=== PATIENT | male | born 1945 | race Caucasian/White ===

== ENCOUNTER 2019-08-26 23:57 | Inpatient (IN) | payer MEDICARE, MEDICAID, SELFPAY ==
--- NOTE | ~2019-08-26 | XR_ITS ---
EXAMINATION: XR chest 1V portable EXAM DATE: 08/27/2019 00:36 INDICATION: Cough. TECHNIQUE: Frontal and lateral projections of the chest obtained and reviewed. Comparison is made to prior examination from 06/03/2017. FINDINGS: Small amount of right basilar atelectasis. There is no pneumothorax suspected. There are no pleural effusions. Cardiomediastinal silhouette is normal. There is severe bilateral glenohumeral joey int primary osteoarthritis. IMPRESSION: Small amount right basilar atelectasis. Reviewed, dictated and finalized at location A.
--- NOTE | ~2019-08-26 | XR_ITS ---
EXAMINATION: XR abdomen/kub 1V DATE: 08/27/2019 13:30 INDICATION: Colitis and rectal bleeding TECHNIQUE: A supine view of the abdomen on 2 radiographs was obtained. COMPARISON: CT dated 08/27/2019 FINDINGS: There is some gas scattered throughout nondilated colon. No dilated loops of gas-filled bowel to sugg est obstruction. Severe lower lumbar spondylosis. Prominent heterotopic ossification about the left l gisselle and greater trochanters likely sequela of old trauma. IMPRESSION: 1. Nonobstructive bowel gas pattern. Reviewed, dictated and finalized at location A.
--- NOTE | ~2019-08-26 | CT_ITS ---
EXAMINATION: CT abdomen pelvis w con EXAM DATE: 08/27/2019 01:29 INDICATION: Low abdominal pain, rectal bleeding. TECHNIQUE: Spiral CT of the abdomen and pelvis was performed following intravenous injection of 100 m L Omnipaque 350. Axial, coronal and sagittal images were reviewed. The dose-length product (DLP) fo r this examination was 516.02 mGy-cm. The exposure was tailored according to patient size (auto mA e xposure control), and iterative reconstruction (ASIR) was used as additional dose reduction technique . There is no prior study for comparison. FINDINGS: The liver, spleen, adrenal glands and pancreas are unremarkable. Gallbladder is unremarkab le. No biliary obstruction. Portal and splenic veins are patent. Kidneys enhance symmetrically. T here is no hydronephrosis. The prostate is unremarkable. The bladder is unremarkable. There is no retroperitoneal or pelvic lymphadenopathy. There is moderate scattered arteriosclerotic disease. The appendix is normal. The stomach and small bowel are unremarkable. Moderate diffuse colonic wall edema, appearance suspicious for pancolitis. No free intraperitoneal gas. The heart is normal in size. There are no pericardial or pleural effusions. There is basilar subsegmental atelectasis. Sc attered reticulonodular opacities likely postinfectious. There are no osteoblastic or osteolytic les ions identified. IMPRESSION: 1. Findings consistent with martinez colitis. Reviewed, dictated and finalized at location A.
[2019-08-26 23:56] VITALS: BP 115/57; PULSE 60; RESP 19; TEMP 36; O2SAT 98
[2019-08-27] VITALS (18 sets, daily range): BP systolic 97–139; BP diastolic 45–90; PULSE 45–68; RESP 16–22; TEMP 36.4–36.6; O2SAT 88–100
--- NOTE | 2019-08-27 00:09 | ECG_ITS ---
Measurements Intervals [place] Rate: 60 P: 126 AL: 175 QRS: 224 QRSD: 159 T: 147 QT: 486 QTc: 488 Interpretive Statements SINUS RHYTHM RIGHT AXIS DEVIATION RIGHT BUNDLE BRANCH BLOCK BASELINE ARTIFACT- I, II, III, AVR, AVL, AVF, V1-V3 ABNORMAL ECG Electronically Signed On 08-27-2019 8:02:05 CDT by Jhonny Beck D.O.
--- NOTE | 2019-08-27 00:11 | ED.GIBLEED ---
HPI - GI Bleed General Chief complaint: GI Bleed Stated complaint: GI bleed Time Seen by Provider: 08/27/19 00:01 Source: patient and EMS Mode of arrival: EMS History of Present Illness HPI Narrative: 73 yo male with h/o Alzheimer's, COPD, VT, CVA who presents from [facility] for evaluation of bright red blood per rectum. Patient is oriented to person ,age and place. He states he is here for evaluation of losing blood but he unable to get detailed history. EMS reports nursing staff reported that patient started passing bright red blood per rectum this morning and he was passing clots. Patient denies weakness, dizziness, nausea vomiting or abdominal pain. He has chronic cough per patient and correction staff. MD complaint: gross hematochezia Onset (ago): day(s) Related Data Home Medications Medication Instructions Recorded Confirmed acetaminophen 650 mg PO ONCE PRN 08/27/19 08/27/19 atorvastatin 20 mg PO DAILY 08/27/19 08/27/19 docusate sodium 100 mg PO DAILY 08/27/19 08/27/19 hydrocodone-acetaminophen 1 tablet PO Q6H PRN 08/27/19 08/27/19 linaclotide [Linzess] mcg 08/27/19 meloxicam 15 mg PO DAILY 08/27/19 08/27/19 mesalamine g PO 08/27/19 nebivolol [Bystolic] 10 mg PO DAILY 08/27/19 08/27/19 roflumilast [Daliresp] 500 mcg PO DAILY 08/27/19 08/27/19 tamsulosin 0.4 mg PO DAILY 08/27/19 08/27/19 Allergies Allergy/AdvReac Type Severity Reaction Status Date / Time Sulfa (Sulfonamide Allergy Unknown Unknown Verified 08/27/19 00:20 Antibiotics) Review of Systems Review of Systems: All systems reviewed & are unremarkable except as noted in HPI and below Constitutional: Constitutional: Denies chills, Denies fever(s) and Denies weakness Cardiovascular: Cardiovascular: Denies chest pain and Denies rapid heart rate Respiratory: Respiratory: Denies chest congestion, Reports cough, Denies dyspnea and Denies wheezing Gastrointestinal: Gastrointestinal: Denies abdominal pain, Denies diarrhea, Denies nausea and Denies vomiting Musculoskeletal: Musculoskeletal: Denies back pain Neurologic: Denies dizziness, Reports headache(s) and Denies weakness [facility] Social History Social History Smoking status: Former smoker Alcohol intake: former Substance use type: does not use Gender identity (if verbalized by the patient): Male Spiritual care concerns: No Agree to blood products: No Exam Const: General: no acute distress and alert Orientation/consciousness: patient oriented x3 Eyes: Pupils: Equal, round and reactive pupils present EOM: EOMs intact bilaterally Chest: Chest palpation & inspection: normal inspection of the chest Resp: Effort & Inspection: normal respiratory effort Auscultation: rhonchi lower bilaterally Cardio: Rate: regular rate Rhythm: regular rhythm GI: GI Palp: Yes Soft to palpation, Yes Tenderness to palpation present (GI) (suprapubic. LLQ), No Guarding due to palpation present (GI) and No Rigid due to palpation Other: red blood on digital exam, no clots or active bleeding Skin: General skin exam: pallor Neuro: General: patient oriented x3 and moves all extremities Psych: Mental Status: mental status grossly normal Course Course Emergency Course: Patient presented to ER for rectal bleeding. I have not been informed of any additional bloody stools in ER. He will be admitted for treatment of colitis. Consultations Consultation #1: I have discussed case with Dr. Mota who accepts admission. Date: 08/27/19 Time: 05:30 Vital Signs Vital signs: Vital Signs Temperature 96.8 F L 08/26/19 23:56 Pulse Rate 60 08/26/19 23:56 Respiratory Rate 19 08/26/19 23:56 Blood Pressure 115/57 L 08/26/19 23:56 Pulse Oximetry 98 08/26/19 23:56 Temperature 97.5 F L 08/27/19 07:00 Pulse Rate 52 L 08/27/19 07:00 Respiratory Rate 22 H 08/27/19 07:00 Blood Pressure 129/57 L 08/27/19 07:00 Pulse Oximetry 98 08/27/19 07:00
[2019-08-27] MEDS: SODIUM CHLORIDE 0.9% IV 1,000 ML 999 ML IV CONT (00:19)
[2019-08-27 00:32] LABS: Alveolar/Arterial O2 Gradient 32.1 mmHg; Carboxyhemoglobin 1.8 % THb (0-2.0); Fractional Inspired Oxygen 21 %; HCO3 ABG 22.6 mEq/l (22.0-26.0); Methemoglobin ABG 0.1 %THb (0-1.5); Oxygen Content ABG 14.5 %vol (16.0-22.0); Oxygen Saturation ABG 94.5 % (95.0-100.0); Oxyhemoglobin 91.8 % THb (90.0-100.0); PCO2 ABG 37.9 mmHg (35.0-45.0); PO2 ABG 72.2 mmHg (80.0-100.0); PO2 FiO2 Ratio Arterial Blood 3.44 %; Reduced Hemoglobin 6.3 %THb (0-5.0); Total Hemoglobin 11.2 g/dL (12.0-18.0); pH ABG 7.393 (7.350-7.450)
[2019-08-27 00:34] LABS: Device ROOM AIR; Modified Allen's Test Pass; Site Drawn RIGHT RADIAL
[2019-08-27 00:51] LABS: Basophils Absolute Auto 0.1 K/mm3 (0.0-0.1); Basophils Percent Auto 0.6 % (0.2-1.2); Eosinophils Absolute Auto 0.4 K/mm3 (0-0.3); Eosinophils Percent Auto 2.3 % (0-4.4); Hematocrit 33.4 % (42.0-52.0); Hemoglobin 10.6 g/dL (14.0-18.0); Immature Granulocyte Absolute 0.09 K/mm3 (0.00-0.031); Immature Granulocyte Percent A 0.6 % (0-0.5); Lymphocytes Percent Auto 8.8 % (18.3-44.2); Mean Corpuscular HGB Conc 31.7 g/dl (32-36); Mean Corpuscular Hemoglobin 29.1 pg (26-34); Mean Corpuscular Volume 91.8 fl (80-100); Mean Platelet Volume 11.4 fl (7.4-10.4); Monocytes Percent Auto 6.4 % (2.6-8.5); Neutrophils Percent Auto 81.3 % (45.5-73.1); Platelet Count Result 187 k/mm3 (150-375); Red Blood Count 3.64 M/mm3 (4.6-6.20); Red Cell Distribution Width 14.6 % (11.5-14.5); White Blood Count 15.9 K/mm3 (4.5-10.0)
[2019-08-27 01:03] LABS: INR 1.2; Prothrombin Time 14.6 Seconds (11.1-14.7)
[2019-08-27 01:04] LABS: Partial Thromboplastin Time 32.5 SECONDS (22.3-36.8)
[2019-08-27 01:04] LABS: Lactic Acid Reflex 1.4 mmol/L (0.7-2.1)
[2019-08-27 01:08] LABS: Alanine Aminotransferase 11 U/L (4-50); Albumin Level 3.2 g/dL (3.5-5.1); Alkaline Phosphatase 61 U/L (38-126); Aspartate Amino Transferase 21 U/L (17-59); Bilirubin,Total 0.3 mg/dL (0.2-1.3); Blood Urea Nitrogen 29 mg/dL (9-20); Calcium 8.3 mg/dL (8.4-10.2); Carbon Dioxide 28 mmol/L (22-30); Chloride 103 mmol/L (98-107); Estimated Glomerular Filt Rate > 60; Glucose 101 mg/dL (75-110); Magnesium 1.8 mg/dL (1.6-2.3); Sodium 135 mmol/L (137-145)
[2019-08-27 01:19] LABS: Potassium 4.3 mmol/L (3.4-5.0)
[2019-08-27 01:21] LABS: NT Pro B Type Natriuretic Pept 1330 PG/ML (5-100); Troponin I < 0.012 ng/mL (0.000-0.034)
--- NOTE | 2019-08-27 06:45 | ADMGEN ---
This patient, Mark Whitaker, was admitted to 2 Medical Room [facility]- @06. Patient/family oriented to hospital policies and general routines including ID bracelet, bed and alarms, visiting hours, pain management, procedures, bathroom and other care routines, personal items, smoking policy, room service/diet, and visiting hours. Valuables list has been completed. Information on how to activate the Rapid Response Team has been discussed. Patient/Family are encouraged to report perceived risks to care and to ask questions if they do not understand what they are told or what they should do.
[2019-08-27] MEDS: LACTATED RINGERS 1,000 ML 125 ML IV CONT (07:02)
[2019-08-27 07:38] LABS: Hematocrit 31.1 % (42.0-52.0); Hemoglobin 9.9 g/dL (14.0-18.0)
[2019-08-27 09:51] LABS: Basophils Percent Auto 0.3 % (0.2-1.2); Eosinophils Absolute Auto 0.2 K/mm3 (0-0.3); Eosinophils Percent Auto 1.6 % (0-4.4); Hematocrit 29.8 % (42.0-52.0); Hemoglobin 9.6 g/dL (14.0-18.0); Immature Granulocyte Absolute 0.06 K/mm3 (0.00-0.031); Immature Granulocyte Percent A 0.5 % (0-0.5); Lymphocytes Absolute Auto 0.93 K/mm3 (0.9-3.2); Lymphocytes Percent Auto 7.6 % (18.3-44.2); Mean Corpuscular HGB Conc 32.2 g/dl (32-36); Mean Corpuscular Hemoglobin 29.4 pg (26-34); Mean Corpuscular Volume 91.4 fl (80-100); Mean Platelet Volume 11.2 fl (7.4-10.4); Monocytes Absolute Auto 0.4 K/mm3 (0.1-0.6); Monocytes Percent Auto 3.4 % (2.6-8.5); Neutrophils Absolute Auto 10.6 K/mm3 (1.3-6.7); Neutrophils Percent Auto 86.6 % (45.5-73.1); Platelet Count Result 170 k/mm3 (150-375); Red Blood Count 3.26 M/mm3 (4.6-6.20); Red Cell Distribution Width 14.7 % (11.5-14.5); White Blood Count 12.2 K/mm3 (4.5-10.0)
[2019-08-27 10:06] LABS: Alanine Aminotransferase 12 U/L (4-50); Albumin Level 3.3 g/dL (3.5-5.1); Alkaline Phosphatase 60 U/L (38-126); Aspartate Amino Transferase 18 U/L (17-59); Bilirubin,Total 0.4 mg/dL (0.2-1.3); Blood Urea Nitrogen 21 mg/dL (9-20); Calcium 8.4 mg/dL (8.4-10.2); Carbon Dioxide 25 mmol/L (22-30); Chloride 102 mmol/L (98-107); Estimated Glomerular Filt Rate > 60; Glucose 156 mg/dL (75-110); Potassium 3.5 mmol/L (3.4-5.0); Sodium 134 mmol/L (137-145)
[2019-08-27] MEDS: ATORVASTATIN 20 MG TABLET PO (10:29)
[2019-08-27] MEDS: TAMSULOSIN HCL 0.4 MG CAPSULE PO (10:29)
[2019-08-27] MEDS: ROFLUMILAST 500 MCG TABLET PO (10:29)
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
[2019-08-27 13:55] LABS: Hematocrit 28.4 % (42.0-52.0); Hemoglobin 9.2 g/dL (14.0-18.0)
[2019-08-27 14:13] LABS: CRP 5.1 mg/dL (<1.0)
[2019-08-27 14:33] LABS: Iron 42 ug/dL (49-181)
[2019-08-27 14:43] LABS: Percent Iron Saturation 16 % (20-50)
[2019-08-27 17:54] LABS: IFOB Positive Control Positive; Immunochemical Fecal Occult Bl Positive (N)
[2019-08-27 18:40] LABS: Hematocrit 28.4 % (42.0-52.0); Hemoglobin 9.1 g/dL (14.0-18.0)
[2019-08-27] MEDS: FAMOTIDINE 20 MG/2 ML VIAL IV PUSH (22:11)
[2019-08-28] VITALS (7 sets, daily range): BP systolic 118–156; BP diastolic 47–70; PULSE 51–77; RESP 16–20; TEMP 36.2–36.8; O2SAT 98–100
[2019-08-28] MEDS: LACTATED RINGERS 1,000 ML 75 ML IV CONT ×2 (00:22→17:16)
[2019-08-28 00:58] LABS: Hematocrit 27.3 % (42.0-52.0); Hemoglobin 9.1 g/dL (14.0-18.0)
[2019-08-28 05:20] LABS: Basophils Absolute Auto 0.1 K/mm3 (0.0-0.1); Basophils Percent Auto 0.4 % (0.2-1.2); Eosinophils Absolute Auto 0.2 K/mm3 (0-0.3); Eosinophils Percent Auto 1.9 % (0-4.4); Hematocrit 27.6 % (42.0-52.0); Hemoglobin 9.1 g/dL (14.0-18.0); Immature Granulocyte Absolute 0.06 K/mm3 (0.00-0.031); Immature Granulocyte Percent A 0.5 % (0-0.5); Lymphocytes Absolute Auto 1.23 K/mm3 (0.9-3.2); Lymphocytes Percent Auto 10.3 % (18.3-44.2); Mean Corpuscular Hemoglobin 29.9 pg (26-34); Mean Corpuscular Volume 90.8 fl (80-100); Mean Platelet Volume 11.9 fl (7.4-10.4); Monocytes Absolute Auto 0.9 K/mm3 (0.1-0.6); Monocytes Percent Auto 7.4 % (2.6-8.5); Neutrophils Absolute Auto 9.5 K/mm3 (1.3-6.7); Neutrophils Percent Auto 79.5 % (45.5-73.1); Platelet Count Result 160 k/mm3 (150-375); Red Blood Count 3.04 M/mm3 (4.6-6.20); Red Cell Distribution Width 14.7 % (11.5-14.5)
[2019-08-28 05:32] LABS: Alanine Aminotransferase 10 U/L (4-50); Albumin Level 3.1 g/dL (3.5-5.1); Alkaline Phosphatase 57 U/L (38-126); Aspartate Amino Transferase 19 U/L (17-59); Bilirubin,Total 0.3 mg/dL (0.2-1.3); Blood Urea Nitrogen 14 mg/dL (9-20); CRP 4.7 mg/dL (<1.0); Calcium 8.3 mg/dL (8.4-10.2); Carbon Dioxide 30 mmol/L (22-30); Chloride 105 mmol/L (98-107); Estimated Glomerular Filt Rate > 60; Glucose 84 mg/dL (75-110); Potassium 4.1 mmol/L (3.4-5.0); Sodium 138 mmol/L (137-145)
[2019-08-28 08:07] LABS: Glucose Point of Care 115 (65-105)
[2019-08-28 08:16] LABS: Erythrocyte Sedimentation Rate 41 mm/hr (0-20)
[2019-08-28] MEDS: ATORVASTATIN 20 MG TABLET PO (08:38)
[2019-08-28] MEDS: ROFLUMILAST 500 MCG TABLET PO (08:39)
[2019-08-28] MEDS: NEBIVOLOL HCL 5 MG TABLET 10 MG PO (08:39)
[2019-08-28] MEDS: FAMOTIDINE 20 MG/2 ML VIAL IV PUSH ×2 (08:39→20:45)
[2019-08-28] MEDS: TAMSULOSIN HCL 0.4 MG CAPSULE PO (08:39)
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
[2019-08-28] MEDS: PEG (High)/E-LYTE SOLN 4,000 ML BTL 4000 ML PO (12:52)
--- NOTE | 2019-08-28 13:08 | PM.IMPN ---
Progress Note: A&P Assessment and Plan (1) Colitis: Code(s): K52.9 - Noninfective gastroenteritis and colitis, unspecified Status: Acute Assessment and Plan: CT performed on 08/25 revealed wall thickening most pronounced in left colon suspicious for pancolitis. This may be infectious, inflammatory, or ischemic, though I suspect it is inflammatory related to Crohn's disease. CRP and ESR elevated. Continue Zosyn Plan for colonoscopy tomorrow (08/28). Begin NPO diet Continue to monitor CRP and ESR Stool cultures collected and pending (2) Rectal bleeding: Code(s): K62.5 - Hemorrhage of anus and rectum Status: Acute Assessment and Plan: Patient reports ankita bright red blood per rectum. Per discussion today, ankita blood has stopped and stools are now liquid brown. Hgb is stable at 9.1. Continue to monitor hemoglobin and hematocrit. GI is following and recommendations are greatly appreciated. Plan for colonoscopy tomorrow (3) Crohn's disease: Code(s): K50.90 - Crohn's disease, unspecified, without complications Status: Acute Assessment and Plan: Patient has a history of Crohn's disease for approximately 30 years. He takes mesalamine. Per discussion with Jared TRIANA, he does not follow with a GI doctor. His PCP, Dr. Peraza prescribes his mesalamine which he has been on for a number of years. They suspect he has not undergone colonoscopy in an extended period of time. GI is following and recommendations are greatly appreciated. Colonoscopy tomorrow Will continue home dose mesalamine. (4) Diarrhea: Code(s): R19.7 - Diarrhea, unspecified Status: Acute Assessment and Plan: Patient initially noted approximately 4 episodes of diarrhea, each following meals. Continues to have diarrhea today. KUB on 08/26 reveals nonobstructive bowel gas pattern. Begin NPO diet and bowel prep. Stool cultures collected and pending. (5) Anemia: Qualifiers: Anemia type: unspecified type Qualified Code(s): D64.9 - Anemia, unspecified Code(s): D64.9 - Anemia, unspecified Status: Acute Assessment and Plan: Patient anemic at presentation with hemoglobin 10.6. He has no documented history of anemia and per chart review, previous Hgb in 2019 wnl. H&H slowly decreasing but now appears to have leveled off with Hgb 9.1. Hct 27.6. Iron panel reveals iron deficiency. Continue to monitor H&H Q6H. Transfuse prn with hemoglobin threshold of 7.0 Plan to begin iron replacement following colonoscopy (6) Alzheimer disease: Qualifiers: Alzheimer's disease onset: unspecified onset Dementia behavioral disturbance: without behavioral disturbance Qualified Code(s): G30.9 - Alzheimer's disease, unspecified; F02.80 - Dementia in other diseases classified elsewhere without behavioral disturbance Code(s): G30.9 - Alzheimer's disease, unspecified; F02.80 - Dementia in other diseases classified elsewhere without behavioral disturbance Status: Acute Assessment and Plan: Documented history of Alzheimer disease. Patient reports problems with memory and is forgetful during conversation. He is alert and oriented x3 today. Continue to monitor mental status. Subjective Date/time seen: 08/28/19 13:08 Interval history: Date of service: 08/28/2019 Mr. Whitaker is seen today and reports he is feeling about the same. He continues to have diarrhea but without ankita blood today. His stools are liquid brown. He says he felt a little nauseous this morning but this has resolved. He has not vomited. He is aware he will undergo colonoscopy tomorrow. He denies abdominal pain. He denies any other sources of bleeding. He endorses occasional chronic cough but denies SOB or chest pain. He denies urinary symptoms. He slept well last night. Review of Systems Review of Systems: Narrative: A 12 point review of systems was revie
[2019-08-28 15:53] LABS: Hematocrit 29.6 % (42.0-52.0); Hemoglobin 9.4 g/dL (14.0-18.0)
[2019-08-28] MEDS: BISACODYL 5 MG TABLET EC 20 MG PO (17:16)
[2019-08-28] MEDS: ACETAMINOPHEN 325 MG TABLET 650 MG PO (17:25)
[2019-08-28 23:07] LABS: Hematocrit 27.1 % (42.0-52.0); Hemoglobin 8.8 g/dL (14.0-18.0)
[2019-08-29] VITALS (9 sets, daily range): BP systolic 120–201; BP diastolic 57–87; PULSE 48–66; RESP 18–27; TEMP 36.3–37.2; O2SAT 97–100
[2019-08-29] MEDS: ACETAMINOPHEN 325 MG TABLET 650 MG PO ×2 (02:01→19:16)
[2019-08-29] MEDS: LACTATED RINGERS 1,000 ML 75 ML IV CONT (05:33)
[2019-08-29 06:32] LABS: Basophils Absolute Auto 0.1 K/mm3 (0.0-0.1); Basophils Percent Auto 0.7 % (0.2-1.2); Eosinophils Absolute Auto 0.2 K/mm3 (0-0.3); Eosinophils Percent Auto 2.7 % (0-4.4); Hematocrit 26.9 % (42.0-52.0); Hemoglobin 8.6 g/dL (14.0-18.0); Immature Granulocyte Absolute 0.03 K/mm3 (0.00-0.031); Immature Granulocyte Percent A 0.4 % (0-0.5); Lymphocytes Absolute Auto 1.06 K/mm3 (0.9-3.2); Lymphocytes Percent Auto 15.7 % (18.3-44.2); Mean Corpuscular Hemoglobin 29.1 pg (26-34); Mean Corpuscular Volume 90.9 fl (80-100); Monocytes Absolute Auto 0.6 K/mm3 (0.1-0.6); Monocytes Percent Auto 8.2 % (2.6-8.5); Neutrophils Absolute Auto 4.9 K/mm3 (1.3-6.7); Neutrophils Percent Auto 72.3 % (45.5-73.1); Platelet Count Result 150 k/mm3 (150-375); Red Blood Count 2.96 M/mm3 (4.6-6.20); Red Cell Distribution Width 14.8 % (11.5-14.5); White Blood Count 6.7 K/mm3 (4.5-10.0)
[2019-08-29 06:43] LABS: Alanine Aminotransferase 11 U/L (4-50); Albumin Level 3.1 g/dL (3.5-5.1); Alkaline Phosphatase 60 U/L (38-126); Aspartate Amino Transferase 24 U/L (17-59); Bilirubin,Total 0.3 mg/dL (0.2-1.3); Blood Urea Nitrogen 8 mg/dL (9-20); CRP 5.4 mg/dL (<1.0); Calcium 8.2 mg/dL (8.4-10.2); Carbon Dioxide 29 mmol/L (22-30); Chloride 104 mmol/L (98-107); Estimated Glomerular Filt Rate > 60; Glucose 78 mg/dL (75-110); Potassium 3.2 mmol/L (3.4-5.0); Sodium 138 mmol/L (137-145)
--- NOTE | 2019-08-29 07:35 | PC.NURSE ---
pt leaving floor for colonoscopy. IV saline locked.
[2019-08-29] MEDS: LACTATED RINGERS 1,000 ML 150 ML IV CONT (07:55)
--- NOTE | 2019-08-29 08:17 | WPDANESEPPF ---
Anes - Initial Pre Proc Eval Procedure: Operation Date: 08/29/19 08:30 Proposed Procedures p Colonoscopy - Vinicius Byrd MD Date/Time: 08/29/19 08:17 Surgeon: Alannah Patiño PA-C Pre Op Diagnosis: Colitis/rectal bleeding Patient Data Age: 73 Gender: M Height: Weight: 65 kg Last Vital Signs Temp 36.8 C 08/29/19 07:40 Pulse 52 L 08/29/19 07:40 Resp 18 08/29/19 07:40 BP 201/69 H 08/29/19 07:40 Pulse Ox 97 08/29/19 07:40 Allergies Allergy/AdvReac Type Severity Reaction Status Date / Time Sulfa (Sulfonamide Allergy Unknown Unknown Verified 08/27/19 00:20 Antibiotics) Home Medications Medication Instructions Recorded Confirmed Type Ventolin HFA 90 mcg PO Q6H PRN 08/27/19 08/27/19 History acetaminophen 650 mg PO DAILY PRN 08/27/19 08/27/19 History atorvastatin 20 mg PO DAILY 08/27/19 08/27/19 History cholecalciferol (vitamin D3) 50,000 units PO MONTHLY 08/27/19 08/27/19 History docusate sodium 100 mg PO DAILY PRN 08/27/19 08/27/19 History guaifenesin 30 ml PO Q6H PRN 08/27/19 08/27/19 History hydrocodone-acetaminophen 1 tablet PO Q6H PRN 08/27/19 08/27/19 History linaclotide [Linzess] 72 mcg PO DAILY 08/27/19 08/27/19 History meloxicam 15 mg PO DAILY 08/27/19 08/27/19 History mesalamine 0.375 g PO DAILY 08/27/19 08/27/19 History nebivolol [Bystolic] 10 mg PO DAILY 08/27/19 08/27/19 History roflumilast [Daliresp] 500 mcg PO DAILY 08/27/19 08/27/19 History sodium chloride [Saline Nasal] 2 spray INTRANASAL QID PRN 08/27/19 08/27/19 History tamsulosin 0.4 mg PO DAILY 08/27/19 08/27/19 History Laboratory Tests 08/28/19 08/28/19 08/29/19 15:47 23:01 05:22 WBC 6.7 K/mm3 K/mm3 (4.5-10.0) RBC 2.96 M/mm3 L M/mm3 (4.6-6.20) Hgb 9.4 g/dL L g/dL 8.8 g/dL L g/dL 8.6 g/dL L g/dL (14.0-18.0) (14.0-18.0) (14.0-18.0) Hct 29.6 % L % 27.1 % L % 26.9 % L % (42.0-52.0) (42.0-52.0) (42.0-52.0) MCV 90.9 fl fl (80-100) MCH 29.1 pg pg (26-34) MCHC 32.0 g/dl g/dl (32-36) RDW 14.8 % H % (11.5-14.5) Plt Count 150 k/mm3 k/mm3 (150-375) MPV 12.0 fl H fl (7.4-10.4) Immature Gran % (Auto) 0.4 % % (0-0.5) Neut % (Auto) 72.3 % % (45.5-73.1) Lymph % (Auto) 15.7 % L % (18.3-44.2) Barry % (Auto) 8.2 % % (2.6-8.5) Eos % (Auto) 2.7 % % (0-4.4) Baso % (Auto) 0.7 % % (0.2-1.2) Lymph # (Auto) 1.06 K/mm3 K/mm3 (0.9-3.2) Barry # (Auto) 0.6 K/mm3 K/mm3 (0.1-0.6) Eos # (Auto) 0.2 K/mm3 K/mm3 (0-0.3) Baso # (Auto) 0.1 K/mm3 K/mm3 (0.0-0.1) Abs Immat Gran (auto) 0.03 K/mm3 K/mm3 (0.00-0.031) Absolute Neuts (auto) 4.9 K/mm3 K/mm3 (1.3-6.7) Absolute Nucleated RBC 0.0 K/mm3 K/mm3 (0.0-0.012) Nucleated RBC % 0.0 % % (0.0-0.2) ESR Pending Sodium Potassium Chloride Carbon Dioxide BUN Creatinine Estim Creat Clear Calc Estimated GFR Glucose Calcium Total Bilirubin AST ALT Alkaline Phosphatase C-Reactive Protein Total Protein Albumin 08/29/19 05:22 WBC RBC Hgb Hct MCV MCH MCHC RDW Plt Count MPV Immature Gran % (Auto) Neut % (Auto) Lymph % (Auto) Barry % (Auto) Eos % (Auto) Baso % (Auto) Lymph # (Auto) Barry # (Auto) Eos # (Auto) Baso # (Auto) Abs Immat Gran (auto) Absolute Neuts (auto) Absolute Nucleated RBC Nucleated RBC % ESR Sodium 138 mmol/L mmol/L (137-145) Potassium 3.2 mmol/L L mmol/L (3.4-5.0) Chloride 104 mmol/L mmol/L (98-107)
[2019-08-29] MEDS: ATORVASTATIN 20 MG TABLET PO (09:54)
[2019-08-29] MEDS: POTASSIUM CHLORIDE 20 MEQ TABLET PO (09:54)
[2019-08-29] MEDS: ROFLUMILAST 500 MCG TABLET PO (09:54)
[2019-08-29] MEDS: TAMSULOSIN HCL 0.4 MG CAPSULE PO (09:54)
[2019-08-29] MEDS: FAMOTIDINE 20 MG/2 ML VIAL IV PUSH ×2 (09:55→20:49)
--- NOTE | 2019-08-29 10:28 | PM.IMPN ---
Progress Note: A&P Assessment and Plan (1) Colitis: Code(s): K52.9 - Noninfective gastroenteritis and colitis, unspecified Status: Acute Assessment and Plan: CT performed on 08/25 revealed wall thickening most pronounced in left colon suspicious for pancolitis. CRP and ESR elevated. The pt underwent colonoscopy by Dr. Rust today (08/28). Colonoscopy revealed colitis described as erythematous, edematous, granular, friable, ulcerative, and vascularity decreased consistent with inflammatory bowel disease, likely Chron's. There was no stigmata of bleeding. Ulcerative colitis, ischemia, or infection cannot be ruled out at this time. Multiple biopsies were obtained. There were no masses or polyps. Dr. Rust is on board and recommendations are greatly appreciated. C. diff, cryptosporidium, and girardia are negative. Shifa toxin, campylobacter, and salmonella/shigella are pending. Continue abx for an additional 3 days. He is on zosyn. Will plan to transition to a PO regimen at discharge. Dr. Rust will begin IV steroids today with PO prednisone taper (40mg QD reduced by 5mg every week) starting tomorrow. Pt will need to follow-up with Dr. Rust in 4-6 weeks. Pathology reports are pending Continue to monitor CRP and ESR Additional stool cultures are pending (2) Rectal bleeding: Code(s): K62.5 - Hemorrhage of anus and rectum Status: Acute Assessment and Plan: The pt presented with c/o ankita bright red blood per rectum. Per nursing reports, stools have been non-bloody. Hb today is 8.6. Colonoscopy revealed no stigmata of bleeding. Continue to monitor hemoglobin and hematocrit GI is following and recommendations are greatly appreciated (3) Crohn's disease: Code(s): K50.90 - Crohn's disease, unspecified, without complications Status: Acute Assessment and Plan: Patient has a history of Crohn's disease for approximately 30 years. He takes mesalamine. Per discussion with Jared TRIANA, he does not follow with a GI doctor. His PCP, Dr. Peraza prescribes his mesalamine which he has been on for a number of years. He underwent colonoscopy with findings suspicious for Chron's disease. GI is following and will begin IV steroids with PO prednisone taper starting tomorrow He will need to follow-up with GI outpatient in 5-6 weeks Will continue home dose mesalamine Pathology is pending (4) Diarrhea: Code(s): R19.7 - Diarrhea, unspecified Status: Acute Assessment and Plan: Patient initially noted approximately 4 episodes of diarrhea, each following meals. KUB on 08/26 reveals nonobstructive bowel gas pattern. He had several episodes of diarrhea yesterday and overnight with no further episodes of diarrhea today per nursing reports. C. diff, cryptosporidium, and girardia are negative. Shifa toxin, campylobacter, and salmonella/shigella are pending. Await additional stool cultures Continue empiric zosyn (5) Anemia: Qualifiers: Anemia type: unspecified type Qualified Code(s): D64.9 - Anemia, unspecified Code(s): D64.9 - Anemia, unspecified Status: Acute Assessment and Plan: Patient anemic at presentation with hemoglobin 10.6. He has no documented history of anemia and per chart review, previous Hgb in 2019 wnl. H&H has slowly decreased. Today, Hb is 8.6. Will continue to monitor. Iron panel reveals iron deficiency. Continue to monitor H&H Q6H Transfuse prn with hemoglobin threshold of 7.0 Will administer IV venofer today (6) Alzheimer disease: Qualifiers: Alzheimer's disease onset: unspecified onset Dementia behavioral disturbance: without behavioral disturbance Qualified Code(s): G30.9 - Alzheimer's disease, unspecified; F02.80 - Dementia in other diseases classified elsewhere without behavioral disturbance Code(s): G30.9 - Alzheimer's disease, unspecified; F02.80 - Dementia in other di
[2019-08-29 10:34] LABS: Erythrocyte Sedimentation Rate 53 mm/hr (0-20)
[2019-08-29] MEDS: MESALAMINE 400 MG DELAYED RELEASE CAPSULE 800 MG PO ×3 (11:21→17:03)
[2019-08-29] MEDS: methylPREDNISolone SOD SUCC 40 MG VIAL IV PUSH ×3 (11:22→20:49)
[2019-08-29] MEDS: IRON SUCROSE COMPLEX 200 MG in SODIUM CHLORIDE 0.9% IV 50 ML 120 MG IVPB (12:51)
[2019-08-30] MEDS: LACTATED RINGERS 1,000 ML 75 ML IV CONT (00:10)
[2019-08-30 04:00] VITALS: BP 160/72; PULSE 48; RESP 20; TEMP 36.7; O2SAT 100
[2019-08-30] MEDS: methylPREDNISolone SOD SUCC 40 MG VIAL IV PUSH (05:38)
[2019-08-30 06:10] LABS: Basophils Percent Auto 0.1 % (0.2-1.2); Hematocrit 28.9 % (42.0-52.0); Hemoglobin 9.2 g/dL (14.0-18.0); Immature Granulocyte Absolute 0.16 K/mm3 (0.00-0.031); Immature Granulocyte Percent A 1.2 % (0-0.5); Lymphocytes Absolute Auto 0.57 K/mm3 (0.9-3.2); Lymphocytes Percent Auto 4.4 % (18.3-44.2); Mean Corpuscular HGB Conc 31.8 g/dl (32-36); Mean Corpuscular Volume 91.2 fl (80-100); Mean Platelet Volume 11.9 fl (7.4-10.4); Monocytes Absolute Auto 0.3 K/mm3 (0.1-0.6); Monocytes Percent Auto 2.3 % (2.6-8.5); Neutrophils Absolute Auto 11.8 K/mm3 (1.3-6.7); Platelet Count Result 187 k/mm3 (150-375); Red Blood Count 3.17 M/mm3 (4.6-6.20); Red Cell Distribution Width 14.7 % (11.5-14.5); White Blood Count 12.9 K/mm3 (4.5-10.0)
[2019-08-30 06:27] LABS: Blood Urea Nitrogen 12 mg/dL (9-20); Calcium 8.8 mg/dL (8.4-10.2); Carbon Dioxide 29 mmol/L (22-30); Chloride 101 mmol/L (98-107); Estimated Glomerular Filt Rate > 60; Glucose 163 mg/dL (75-110); Magnesium 1.8 mg/dL (1.6-2.3); Potassium 3.9 mmol/L (3.4-5.0); Sodium 137 mmol/L (137-145)
[2019-08-30 09:11] VITALS: PULSE 60
[2019-08-30] MEDS: predniSONE 5 MG TABLET 40 MG PO (09:11)
[2019-08-30] MEDS: NEBIVOLOL HCL 5 MG TABLET PO (09:11)
[2019-08-30] MEDS: FAMOTIDINE 20 MG/2 ML VIAL IV PUSH (09:11)
[2019-08-30] MEDS: ROFLUMILAST 500 MCG TABLET PO (09:11)
[2019-08-30] MEDS: TAMSULOSIN HCL 0.4 MG CAPSULE PO (09:12)
[2019-08-30] MEDS: FERROUS SULFATE 324 MG TABLET PO (09:12)
[2019-08-30] MEDS: ATORVASTATIN 20 MG TABLET PO (09:12)
[2019-08-30] MEDS: MESALAMINE 400 MG DELAYED RELEASE CAPSULE 800 MG PO (09:12)
--- NOTE | 2019-08-30 09:22 | PM.DS ---
DS: Diagnosis Admitting Diagnosis Admitting Diagnosis: Noninfective gastroenteritis and colitis, unspecified Discharge Diagnosis (1) Crohn's disease: Qualifiers: Digestive disease complication type: with rectal bleeding Gastrointestinal tract location: large intestine Qualified Code(s): K50.111 - Crohn's disease of large intestine with rectal bleeding Code(s): K50.90 - Crohn's disease, unspecified, without complications Status: Acute (2) Colitis: Code(s): K52.9 - Noninfective gastroenteritis and colitis, unspecified Status: Acute (3) Rectal bleeding: Code(s): K62.5 - Hemorrhage of anus and rectum Status: Acute (4) Diarrhea: Qualifiers: Diarrhea type: unspecified type Qualified Code(s): R19.7 - Diarrhea, unspecified Code(s): R19.7 - Diarrhea, unspecified Status: Acute (5) Anemia: Qualifiers: Anemia type: unspecified type Qualified Code(s): D64.9 - Anemia, unspecified Code(s): D64.9 - Anemia, unspecified Status: Acute (6) Alzheimer disease: Qualifiers: Alzheimer's disease onset: unspecified onset Dementia behavioral disturbance: without behavioral disturbance Qualified Code(s): G30.9 - Alzheimer's disease, unspecified; F02.80 - Dementia in other diseases classified elsewhere without behavioral disturbance Code(s): G30.9 - Alzheimer's disease, unspecified; F02.80 - Dementia in other diseases classified elsewhere without behavioral disturbance Status: Chronic (7) Hypokalemia: Code(s): E87.6 - Hypokalemia Status: Resolved DS: Summary Hospital Course Reason for hospitalization: Mr. Whitaker is a 73 y.o. male with PMH significant for Crohn's disease for 30 years on mesalamine, COPD, prior AR, prior CVA, and Alzheimer's disease who presented to the emergency department on 08/26/2019 from [facility] via EMS with complaints of bright red blood per rectum with clots and diarrhea. Initial workup in the ED revealed WBC 15.9, Hb 10.6, Hct 33.4, platelet count 187, lactic acid 1.4, CT abd/pelvis with moderate colonic edema consistent with martinez colitis. He was admitted to the hospitalist service for further evaluation and treatment. He was treated empirically for colitis with IV zosyn and steroids. Stool cultures were obtained and were negative. GI was consulted and he underwent colonoscopy which revealed colitis described as erythematous, edematous, granular, friable, ulcerative, and vascularity decreased consistent with inflammatory bowel disease. Biopsies were obtained. Hb was monitored and remained stable. His sx improved significantly and his stool frequency decreased. He had no further episodes of melena or hematochezia. His heart rate was low (48-50s) so his bystolic was decreased to 5mg with instructions to monitor heart rate and blood pressure at the detention. Hb at presentation was 10.6. H&H were monitored and Hb remained stable with slight decrease to 8.6. Iron studies were consistent with iron deficiency anemia. He received IV venofer and was discharged on PO iron. Hb on the day of discharge was 9.2. He was instructed to have repeat CBC in 5 days. He was discharged with a slow prednisone taper for IBD and instructed to follow-up with Dr. Rust in 4-6 weeks. He was discharged to [facility] in stable condition. Status at Discharge Functional status at discharge: independent ambulation Overall status at discharge: patient is back to baseline Time Spent with Patient Time attestation: Total time spent providing and/or coordinating discharge services: 30 minutes Exam Narrative: Exam Narrative: General: Well-developed, well-nourished, pleasant 73 y.o. male sitting up in the chair. He is in no acute distress. HEENT: Conjunctivae and lids normal. PERRL. EOMI. Mucous membranes moist. Neck: Supple. No lymphadenopathy or masses. Cardiac: Regular rate and rhythm. Normal S1 and S2
--- NOTE | 2019-08-30 10:02 | WPDGIPROGNO ---
Progress Note: A&P Assessment and Plan (1) Crohn's disease: Qualifiers: Gastrointestinal tract location: large intestine Digestive disease complication type: with rectal bleeding Qualified Code(s): K50.111 - Crohn's disease of large intestine with rectal bleeding Code(s): K50.90 - Crohn's disease, unspecified, without complications Status: Acute Assessment and Plan: history and endoscopic findings consistent with flare, doing much better ok to go back to alf with slow prednisone taper, continue with mesalamine (he was receiving low dose- will adjust to appropriate dose) pending path report 2-3 more days of antibiotics follow up office in 4-6 weeks (2) Colitis: Code(s): K52.9 - Noninfective gastroenteritis and colitis, unspecified Status: Acute (3) Rectal bleeding: Code(s): K62.5 - Hemorrhage of anus and rectum Status: Acute Assessment and Plan: resolved (4) Anemia: Qualifiers: Anemia type: unspecified type Qualified Code(s): D64.9 - Anemia, unspecified Code(s): D64.9 - Anemia, unspecified Status: Acute Assessment and Plan: stable (5) Alzheimer disease: Qualifiers: Alzheimer's disease onset: unspecified onset Dementia behavioral disturbance: without behavioral disturbance Qualified Code(s): G30.9 - Alzheimer's disease, unspecified; F02.80 - Dementia in other diseases classified elsewhere without behavioral disturbance Code(s): G30.9 - Alzheimer's disease, unspecified; F02.80 - Dementia in other diseases classified elsewhere without behavioral disturbance Status: Chronic Subjective Date/time seen: 08/30/19 10:02 Interval history: he is doing better, good appetite, no complain of pain and feeling like going home Review of Systems Review of Systems: All systems reviewed & are unremarkable except as noted in HPI and below Exam Const: General: comfortable and no acute distress HENMT: General nose exam: Normal nares present Eyes: General: appearance normal, both eyes and all related structures Neck: Neck: no JVD Resp: Auscultation: clear to auscultation bilaterally Cardio: Rate: regular rate Rhythm: regular rhythm GI: Inspection: non-distended GI Palp: Yes Soft to palpation Skin: General skin exam: normal color Neuro: General: gait normal Speech: normal speech Extrem: General: normal to inspection Psych: Mental Status: mental status grossly normal Objective Data Vital Signs Vital Signs: Vital Signs - 24 hr 08/29/19 10:04 08/29/19 10:15 08/29/19 13:36 Temperature 98.4 F Pulse Rate 50 L 48 L 66 Respiratory Rate 18 Blood Pressure 141/87 H 145/73 H Pulse Oximetry 98 08/29/19 20:00 08/30/19 04:00 08/30/19 09:11 Temperature 99 F 98.1 F Pulse Rate 63 48 L 60 Respiratory Rate 20 20 Blood Pressure 150/75 H 160/72 H Pulse Oximetry 97 100 Intake/Output Intake/Output: Intake & Output 08/27/19 08/28/19 08/29/19 08/30/19 23:59 23:59 23:59 23:59 Intake Total 2330 4320 3544 996 Output Total 400 800 300 Balance 1930 3520 3544 696 Meds/Results Medications: Active Medications Generic Name Dose Route Start Last Admin Trade Name Freq PRN Reason Stop Dose Admin Acetaminophen 650 mg 08/28/19 13:41 08/29/19 19:16 Tylenol Tablet PO 650 mg Q4H PRN Administration Mild pain 1-3, fever Albuterol 2 puff 08/27/19 08:00 Proventil Hfa INHALATION Q6HRT PRN Shortness Of Breath Atorvastatin Calcium 20 mg 08/27/19 09:00 08/30/19 09:12 Lipitor PO 20 mg DAILY KWAME Administration Ergocalciferol 50,000 unit 09/21/19 09:00 Drisdol PO 09/26/19 09:01 [facility]THLY [facility] Famotidine 20 mg 08/27/19 21:00 08/30/19 09:11 Pepcid Iv IV PUSH 20 mg Q12HR KWAME Administration Ferrous Sulfate 324 mg 08/30/19 09:00 08/30/19 09:12 Ferrous Sulfate PO 324 mg DAILY KWAME Administration Piperacillin/Tazoba
--- NOTE | 2019-08-31 06:29 | P.CDI_ITS ---
CDI Query Clarification Request -Rectal bleeding has been documented -08/26 H&H 10.10/3333, 08/28 H&H 8.6/26.9 -Anemia, unspecified documented and Patient anemic at presentation with hemoglobin 10.6. He has no documented history of anemia and per chart review, previous Hgb in 2019 wnl. H&H has slowly decreased -IV Iron given 08/28 Please clarify acuity and type of anemia: * Acute blood loss anemia * Chronic blood loss anemia * Acute on Chronic blood loss anemia * Acute anemia of other cause * Chronic anemia of other cause * Unable to determine
--- NOTE | 2019-08-31 06:29 | WPDCDIQUERY2 ---
CDI Query Clarification Request -Rectal bleeding has been documented -08/26 H&H 10.10/3333, 08/28 H&H 8.6/26.9 -Anemia, unspecified documented and Patient anemic at presentation with hemoglobin 10.6. He has no documented history of anemia and per chart review, previous Hgb in 2019 wnl. H&H has slowly decreased -IV Iron given 08/28 Please clarify acuity and type of anemia: Acute blood loss anemia Chronic blood loss anemia Acute on Chronic blood loss anemia Acute anemia of other cause Chronic anemia of other cause Unable to determine
== END 2019-08-30 12:18 | DRG 386 ==
LOC: ANHED 08-27 00:53 → ANH2MED 08-27 06:18
PROVIDERS: Internal Medicine Gastroenterology; Physician Assistant; Admitting Provider Internal Medicine; Emergency Provider General Practice; Visit Provider Physician Assistant
PROC: 0DJD8ZZ Inspection of Lower Intestinal Tract, Via Natural or Artificial Opening Endoscopic (ICD-10-PCS; CPT 45378; principal; 2019-08-29 08:30)
DX: K50.111 Crohn's disease of large intestine with rectal bleeding (principal); D62 Acute posthemorrhagic anemia; G30.9 Alzheimer's disease, unspecified; F02.80 Dementia in other diseases classified elsewhere, unspecified severity, without behavioral disturbance, psychotic disturbance, mood disturbance, and anxiety; J44.9 Chronic obstructive pulmonary disease, unspecified; I25.10 Atherosclerotic heart disease of native coronary artery without angina pectoris; Z86.73 Personal history of transient ischemic attack (TIA), and cerebral infarction without residual deficits; E87.6 Hypokalemia
CPT/HCPCS: 36415; 36600; 71045; 74018; 74177; 80048; 80053; 82274; 82375; 82728; 82805; 83050; 83540; 83550; 83605; 83735; 83880; 84484; 85014; 85018; 85025; 85610; 85652; 85730; 86140; 86850; 86900; 86901; 87015; 87045; 87046; 87269; 87272; 87324; 87427; 88305; 89055; 93005; 96361; 96365; 99285; A9270; J1756; J2543; J2704; J2920; J7030; J7120; J7512; Q9967

== ENCOUNTER 2019-10-18 20:44 | Inpatient (IN) | payer MEDICARE, MEDICAID, SELFPAY ==
[2019-10-18] VITALS (7 sets, daily range): BP systolic 92–116; BP diastolic 53–85; PULSE 77–145; RESP 16–18; TEMP 36.3–36.8; O2SAT 93–96; BMI 23.2
--- NOTE | ~2019-10-18 | XR_ITS ---
EXAMINATION: XR chest 1V portable DATE: 10/19/2019 00:10 INDICATION: Shortness of breath. Cough. TECHNIQUE: frontal view of the chest was obtained. COMPARISON: Chest radiograph dated 10/18/2019, 08/27/[address] dated 06/25/2017 FINDINGS: Unchanged mild reticular nodular pattern in the mid and lower lung zones. No pleural effusion or pneu mothorax. The cardiomediastinal silhouette is normal. 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 IMPRESSION: 1. Unchanged reticular-nodular pattern in the mid and lower lung zones likely sequela of chronic infe ction. Reviewed, dictated and finalized at location A. IMPRESSION: 1. Unchanged reticular-nodular pattern in the mid and lower lung zones likely s equela of chronic infection.
--- NOTE | ~2019-10-18 | XR_ITS ---
EXAMINATION: XR chest 1V portable DATE: 10/18/2019 21:17 INDICATION: Chest pain. TECHNIQUE: A single frontal view of the chest was obtained. COMPARISON: Chest single view 08/27/2019, CT abdomen and pelvis 08/27/2019 FINDINGS: There is a reticulonodular pattern in the mid and lower lung zones. No pleural effusion or pneumothorax. The heart size is normal. IMPRESSION: 1. Reticulonodular pattern in the mid and lower lung zones, likely chronic infection. Reviewed, dictated and finalized at location A. IMPRESSION: 1. Reticulonodular pattern in the mid and lower lung zones, likely chronic infe ction.
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
--- NOTE | 2019-10-18 20:48 | ECG_ITS ---
Measurements Intervals [place] Rate: 153 P: ND: 0 QRS: 265 QRSD: 133 T: 26 QT: 312 QTc: 499 Interpretive Statements ATRIAL FIBRILLATION WITH RAPID VENTRICULAR RESPONSE RIGHT AXIS DEVIATION RIGHT BUNDLE BRANCH BLOCK ST-T WAVE ABNORMALITY IN ANTEROLAT/INF LEADS- CONSIDER ISCHEMIA BASELINE WANDER- I, II, III, AVF, V5-V6 ABNORMAL ECG Electronically Signed On 10-19-2019 7:00:32 CDT by Jhonny Beck D.O.
[2019-10-18] MEDS: SODIUM CHLORIDE 0.9% IV 1,000 ML 999 ML (21:02)
[2019-10-18 21:16] LABS: Basophils Percent Auto 0.3 % (0.2-1.2); Eosinophils Absolute Auto 0.1 K/mm3 (0-0.3); Eosinophils Percent Auto 0.5 % (0-4.4); Hematocrit 43.1 % (42.0-52.0); Hemoglobin 13.9 g/dL (14.0-18.0); Immature Granulocyte Absolute 0.06 K/mm3 (0.00-0.031); Immature Granulocyte Percent A 0.5 % (0-0.5); Lymphocytes Absolute Auto 1.28 K/mm3 (0.9-3.2); Lymphocytes Percent Auto 9.9 % (18.3-44.2); Mean Corpuscular HGB Conc 32.3 g/dl (32-36); Mean Corpuscular Hemoglobin 30.5 pg (26-34); Mean Corpuscular Volume 94.7 fl (80-100); Mean Platelet Volume 11.3 fl (7.4-10.4); Monocytes Absolute Auto 0.8 K/mm3 (0.1-0.6); Monocytes Percent Auto 5.8 % (2.6-8.5); Neutrophils Absolute Auto 10.7 K/mm3 (1.3-6.7); Platelet Count Result 178 k/mm3 (150-375); Red Blood Count 4.55 M/mm3 (4.6-6.20); White Blood Count 12.9 K/mm3 (4.5-10.0)
[2019-10-18] MEDS: ONDANSETRON INJ 4 MG/2 ML VIAL IV PUSH (21:23)
[2019-10-18] MEDS: DIGOXIN INJ 250 MCG/ML 2 ML AMP (*BKC) IV PUSH (21:23)
[2019-10-18 21:28] LABS: Alanine Aminotransferase 21 U/L (4-50); Albumin Level 4.1 g/dL (3.5-5.1); Alkaline Phosphatase 56 U/L (38-126); Aspartate Amino Transferase 24 U/L (17-59); Bilirubin,Total 0.4 mg/dL (0.2-1.3); Blood Urea Nitrogen 37 mg/dL (9-20); Calcium 9.6 mg/dL (8.4-10.2); Carbon Dioxide 30 mmol/L (22-30); Chloride 100 mmol/L (98-107); Estimated Glomerular Filt Rate 50; Glucose 144 mg/dL (75-110); Potassium 3.4 mmol/L (3.4-5.0); Sodium 136 mmol/L (137-145)
[2019-10-18 21:37] LABS: INR 1.1
[2019-10-18 21:42] LABS: NT Pro B Type Natriuretic Pept 1640 PG/ML (5-100)
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
[2019-10-19] VITALS (17 sets, daily range): BP systolic 115–191; BP diastolic 59–104; PULSE 48–130; RESP 16–22; TEMP 35.8–36.4; O2SAT 95–99
--- NOTE | 2019-10-19 | ECHO_ITS ---
Patient Info Name: Mark Whitaker Age: 74 years : 1945 Gender: Male Ht: 67 in Wt: 148 lbs BSA: 1.79 m2 HR: 79 bpm BP: 115 / 77 mmHg Heart Rhythm: Atrial Fibrillation Technical Quality: Good Exam Date: 10/19/2019 11:40 AM Exam Location: [facility] Pulmonary Patient Status: Inpatient Admit Date: 10/18/2019 Staff Ordering Physician: Nikunj Marcial MD Vacuum Cleaner Mechanic: Preston Reynoso RDCS, RT Attending Provider: Veronique Estes PA-C Referring Physician: Aggie FRAZIER; Exam Type: CA echo doppler color flow Study Info Indications I50.9 - Heart failure, unspecified Complete two-dimensional, color flow and Doppler transthoracic echocardiogram is performed. Summary 1. Left ventricular chamber dimension is mildly enlarged. 2. Left ventricular systolic function is normal, estimated at 65-70%. 3. There is severely increased left ventricular wall thickness. 4. The left ventricular diastolic function is indeterminate. 5. Left atrial chamber dimension is mildly enlarged. 6. There is moderate to severe aortic valve stenosis with a peak velocity of 284 cm/s, mean gradient of 3 mmHg, and aortic valve area of 1.2 cm2. 7. There is mild aortic valve regurgitation. 8. There is severe aortic valve calcification. 9. There is mild tricuspid valve regurgitation. 10. The aortic root size at the sinus of Valsalva is mildly dilated. Left Ventricle Left ventricular chamber dimension is mildly enlarged. Left ventricular systolic function is normal, estimated at 65-70%. There is severely increased left ventricular wall thickness. The left ventricular diastolic function is indeterminate. Right Ventricle Right ventricular chamber dimension is normal. Right ventricular systolic function is normal. Left Atria Left atrial chamber dimension is mildly enlarged. Right Atria Right atrial chamber dimension is normal. Atrial Septum Intact interatrial septum visualized by color flow imaging. Aortic Valve The aortic valve is trileaflet. There is moderate to severe aortic valve stenosis with a peak velocity of 284 cm/s, mean gradient of 3 mmHg, and aortic valve area of 1.2 cm2. There is mild aortic valve regurgitation. There is severe aortic valve calcification. Pulmonic Valve The pulmonic valve is normal. There is no pulmonic valve stenosis. There is trace pulmonic regurgitation. Mitral Valve The mitral valve has calcified annulus. There is no mitral valve stenosis. There is trace mitral valve regurgitation. Tricuspid Valve The tricuspid valve leaflets are normal. There is no significant tricuspid valve stenosis. There is mild tricuspid valve regurgitation. Pericardium/Pleural The pericardium appears normal. There is no pericardial effusion. Inferior Vena Cava Dilated inferior vena cava with <50% collapse upon inspiration consistent with elevated right atrial pressure, 15 mmHg. Aorta The aortic root size at the sinus of Valsalva is mildly dilated. The prox ascending aorta size is normal. Left Ventricular Outflow Tract Name Value Normal LVOT 2D LVOT Diameter 2.1 cm LVOT Doppler LVOT Peak Gradient
[2019-10-19] MEDS: ENOXAPARIN 80 MG/0.8 ML SYRINGE 65 MG SUB-Q ×2 (00:44→20:24)
[2019-10-19] MEDS: FUROSEMIDE INJ 40 MG/4 ML VIAL IV PUSH ×2 (02:43→17:38)
[2019-10-19 03:25] LABS: Basophils Percent Auto 0.4 % (0.2-1.2); Eosinophils Absolute Auto 0.1 K/mm3 (0-0.3); Eosinophils Percent Auto 0.9 % (0-4.4); Hematocrit 41.3 % (42.0-52.0); Hemoglobin 13.3 g/dL (14.0-18.0); Immature Granulocyte Absolute 0.05 K/mm3 (0.00-0.031); Immature Granulocyte Percent A 0.5 % (0-0.5); Immature Platelet Fraction Pct 3.8 % (0.9-11.2); Lymphocytes Absolute Auto 1.59 K/mm3 (0.9-3.2); Mean Corpuscular HGB Conc 32.2 g/dl (32-36); Mean Corpuscular Volume 96.3 fl (80-100); Mean Platelet Volume 11.3 fl (7.4-10.4); Monocytes Absolute Auto 0.8 K/mm3 (0.1-0.6); Monocytes Percent Auto 7.1 % (2.6-8.5); Neutrophils Absolute Auto 8.1 K/mm3 (1.3-6.7); Neutrophils Percent Auto 76.1 % (45.5-73.1); Platelet Count Result 136 k/mm3 (150-375); Red Blood Count 4.29 M/mm3 (4.6-6.20); Red Cell Distribution Width 15.1 % (11.5-14.5); White Blood Count 10.6 K/mm3 (4.5-10.0)
[2019-10-19 03:36] LABS: Blood Urea Nitrogen 34 mg/dL (9-20); Calcium 8.7 mg/dL (8.4-10.2); Carbon Dioxide 29 mmol/L (22-30); Chloride 106 mmol/L (98-107); Estimated CRCL calculation 42 ml/min; Estimated Glomerular Filt Rate 54; Glucose 94 mg/dL (75-110); Magnesium 2.1 mg/dL (1.6-2.3); Potassium 3.9 mmol/L (3.4-5.0); Sodium 140 mmol/L (137-145)
[2019-10-19 04:53] LABS: Thyroid Stimulating Hormone Reflex 0.624 uIU/mL (0.465-4.68)
[2019-10-19] MEDS: ASPIRIN 81 MG CHEWABLE TABLET PO (08:54)
[2019-10-19] MEDS: MELOXICAM 7.5 MG TABLET 15 MG PO (08:58)
[2019-10-19] MEDS: MESALAMINE 400 MG DELAYED RELEASE CAPSULE 800 MG PO ×3 (08:58→17:31)
[2019-10-19] MEDS: TAMSULOSIN HCL 0.4 MG CAPSULE PO (08:58)
[2019-10-19] MEDS: ATORVASTATIN 20 MG TABLET PO (08:58)
[2019-10-19] MEDS: DOXYCYCLINE HYCLATE 100 MG TABLET PO ×2 (08:58→20:23)
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
[2019-10-19] MEDS: NEBIVOLOL HCL 5 MG TABLET PO (09:22)
--- NOTE | 2019-10-19 09:22 | PC.NURSE ---
Held Bystolic due to low heart rate flucuation. Notified Dr. Bryant he agreed
[2019-10-19] MEDS: FERROUS SULFATE 324 MG TABLET PO (12:43)
--- NOTE | 2019-10-19 12:58 | PM.CNCAR ---
Assessment and Plan Assessment and plan (1) Acute coronary syndrome: Code(s): I24.9 - Acute ischemic heart disease, unspecified Status: Acute Assessment and Plan: Patient appears to have a non ST elevation myocardial infarction. 2D echocardiogram Doppler will be ordered and reviewed. Will repeat a troponin now until peak. Continue statin, Bystolic. Will start aspirin 81 mg p.o. daily. This is a complicated scenario given his aortic stenosis, known CAD with underlying dementia. He also has atrial fibrillation rapid ventricular response. It is possible that his troponin elevation is related to a combination of AFib with RVR in the setting of severe aortic stenosis +/- CAD (2) Atrial fibrillation with rapid ventricular response: Code(s): I48.91 - Unspecified atrial fibrillation Status: Acute Assessment and Plan: Were resume beta-july in the form of Bystolic 5 mg daily. Will also give a dose of amiodarone 150 mg IV x1 (3) Chest pain: Qualifiers: Chest pain type: unspecified Qualified Code(s): R07.9 - Chest pain, unspecified Code(s): R07.9 - Chest pain, unspecified Status: Acute Assessment and Plan: Currently resolved and related to his an non STEMI (4) Nonrheumatic aortic (valve) stenosis: Code(s): I35.0 - Nonrheumatic aortic (valve) stenosis Status: Acute Assessment and Plan: Moderate at last evaluation (5) Alzheimer disease: Qualifiers: Alzheimer's disease onset: unspecified onset Dementia behavioral disturbance: without behavioral disturbance Qualified Code(s): G30.9 - Alzheimer's disease, unspecified; F02.80 - Dementia in other diseases classified elsewhere without behavioral disturbance Code(s): G30.9 - Alzheimer's disease, unspecified; F02.80 - Dementia in other diseases classified elsewhere without behavioral disturbance Status: Chronic Assessment and Plan: Significant (6) Paroxysmal atrial fibrillation with rapid ventricular response: Code(s): I48.0 - Paroxysmal atrial fibrillation Status: Acute Assessment and Plan: Currently in rapid ventricular response rhythm. Will give a dose of amiodarone (7) Hypertension: Code(s): I10 - Essential (primary) hypertension Status: Acute Assessment and Plan: Continue current meds Will keep NPO after midnight for possible cardiac catheterization in the morning. Will need to talk to family members but I did talk to the patient himself and he is willing and wanting an angiogram if need be. History of Present Illness History of Present Illness Consult date/time: 10/19/19 12:58 Requesting physician: Diana Cheney MD Consult reason: chest pain and atrial fibrillation Reason For Visit: A fib with rvr Narrative: Date of service 10/19/2019: History: L: Patient is a 74-year-old male patient of Dr. Foster who has a significant cardiac and vascular history. He has dementia, multiple strokes, coronary artery disease, paroxysmal atrial fibrillation, aortic stenosis, GI bleed history. He had formally been on sotalol but has not been on sotalol recently for unknown reasons. He also is not on anticoagulation because of history of GI bleed. He does have moderate aortic stenosis which has been followed with serial echocardiograms. Patient came to the hospital yesterday because of chest pain which lasted about 2 hours. The patient himself cannot give me any details to his chest discomfort. He simply states that he is here because of his heart. In reviewing the hospital record and history and physical, it appears that the patient had 2 hours of chest pain which resolved with nitroglycerin given via EMS. He did have some associated shortness of breath no nausea or diaphoresis. In the emergency department he was found to have a slightly elevated troponin which has risen to a level 1.41, atrial fibrillation with rapid ventricular resp
--- NOTE | 2019-10-19 13:57 | PM.IMPN ---
Progress Note: A&P Assessment and Plan (1) Chest pain: Qualifiers: Chest pain type: unspecified Qualified Code(s): R07.9 - Chest pain, unspecified Code(s): R07.9 - Chest pain, unspecified Status: Acute Assessment and Plan: Patient has a history of CAD His troponins were elevated on arrival and were trending up. Due to patient's troponin elevation and chest pain he had an NSTEMI Cardiology was consulted by the emergency room and they recommend continuing his beta july, statin, starting aspirin 81 mg and potentially undergoing a catheterization in the morning. Continue monitoring for chest pain. Nitroglycerin as needed. Cardiology's input is greatly appreciated. (2) Atrial fibrillation with rapid ventricular response: Code(s): I48.91 - Unspecified atrial fibrillation Status: Acute Assessment and Plan: Patient was found to be in AFib with RVR on arrival. He was initially started on a Cardizem drip and now he is getting amiodarone IV. Currently, he is in atrial fibrillation with a heart rate between 97 and 135 bpm. No other acute abnormality is noted. CHADS-VASc score 4 Will continue with anticoagulation with SQ Lovenox. TSH was normal Echocardiogram is pending. Continue monitoring. Continue with Cardiology recommendations. (3) Acute pulmonary edema: Code(s): J81.0 - Acute pulmonary edema Status: Acute Assessment and Plan: Likely secondary to the liter of NS the patient received in the ER as his repeat CXR was much worse after he arrived to the floor. Patient received IV Lasix 40 mg this morning and still continues to sound fluid overloaded. Will repeat a BMP to monitor his creatinine electrolytes and give another dose of IV Lasix this evening. Echocardiogram is pending. Continue monitoring. Insert light (4) Elevated troponin: Code(s): R79.89 - Other specified abnormal findings of blood chemistry Status: Acute Assessment and Plan: Cardiology believe secondary to NSTEMI verses atrial fibrillation with RVR. Cardiology may complete a catheterization on the patient tomorrow he will be placed NPO after midnight. Continue trending troponin. (5) Acute renal failure: Qualifiers: Acute renal failure type: unspecified Qualified Code(s): N17.9 - Acute kidney failure, unspecified Code(s): N17.9 - Acute kidney failure, unspecified Status: Acute Assessment and Plan: Patient's creatinine this morning was 1.3 and his normal was around 0.9 He was given a dose of IV Lasix will check a BMP to ensure his creatinine did not go up from that Monitor renal function. Avoid nephrotoxic agents. Renally dose medications. (6) Anemia: Qualifiers: Anemia type: unspecified type Qualified Code(s): D64.9 - Anemia, unspecified Code(s): D64.9 - Anemia, unspecified Status: Chronic Assessment and Plan: H&H is improved from prior hospitalization. No signs of acute blood loss. Monitor H/H, transfuse prn. (7) Alzheimer disease: Qualifiers: Alzheimer's disease onset: unspecified onset Dementia behavioral disturbance: without behavioral disturbance Qualified Code(s): G30.9 - Alzheimer's disease, unspecified; F02.80 - Dementia in other diseases classified elsewhere without behavioral disturbance Code(s): G30.9 - Alzheimer's disease, unspecified; F02.80 - Dementia in other diseases classified elsewhere without behavioral disturbance Status: Chronic Assessment and Plan: stable. (8) COPD (chronic obstructive pulmonary disease): Qualifiers: COPD type: unspecified COPD
[2019-10-19] MEDS: AMIODARONE 360 MG/D5W 200 ML 360 MG/200 ML BAG 16.7 MG IV CONT (14:21)
[2019-10-19 15:25] LABS: Blood Urea Nitrogen 32 mg/dL (9-20); Calcium 9.3 mg/dL (8.4-10.2); Carbon Dioxide 30 mmol/L (22-30); Chloride 100 mmol/L (98-107); Estimated CRCL calculation 49 ml/min; Estimated Glomerular Filt Rate > 60; Glucose 156 mg/dL (75-110); Potassium 3.9 mmol/L (3.4-5.0); Sodium 138 mmol/L (137-145)
--- NOTE | 2019-10-19 20:25 | ECG_ITS ---
Measurements Intervals [place] Rate: 55 P: 40 AR: 195 QRS: -63 QRSD: 140 T: 41 QT: 438 QTc: 420 Interpretive Statements SINUS BRADYCARDIA RIGHT BUNDLE BRANCH BLOCK LEFT ANTERIOR FASCICULAR BLOCK ABNORMAL ECG Electronically Signed On 10-20-2019 7:00:11 CDT by Jhonny Beck D.O.
[2019-10-20] VITALS (31 sets, daily range): BP systolic 109–184; BP diastolic 50–110; PULSE 45–97; RESP 14–23; TEMP 35.9–37; O2SAT 67–100
[2019-10-20 05:04] LABS: Basophils Absolute Auto 0.1 K/mm3 (0.0-0.1); Basophils Percent Auto 0.7 % (0.2-1.2); Eosinophils Absolute Auto 0.1 K/mm3 (0-0.3); Eosinophils Percent Auto 1.6 % (0-4.4); Hematocrit 42.6 % (42.0-52.0); Hemoglobin 13.7 g/dL (14.0-18.0); Immature Granulocyte Absolute 0.03 K/mm3 (0.00-0.031); Immature Granulocyte Percent A 0.4 % (0-0.5); Immature Platelet Fraction Pct 5.6 % (0.9-11.2); Lymphocytes Absolute Auto 1.43 K/mm3 (0.9-3.2); Lymphocytes Percent Auto 19.2 % (18.3-44.2); Mean Corpuscular HGB Conc 32.2 g/dl (32-36); Mean Corpuscular Volume 93.4 fl (80-100); Mean Platelet Volume 11.3 fl (7.4-10.4); Monocytes Absolute Auto 0.6 K/mm3 (0.1-0.6); Monocytes Percent Auto 8.2 % (2.6-8.5); Neutrophils Absolute Auto 5.2 K/mm3 (1.3-6.7); Neutrophils Percent Auto 69.9 % (45.5-73.1); Platelet Count Result 127 k/mm3 (150-375); Red Blood Count 4.56 M/mm3 (4.6-6.20); White Blood Count 7.4 K/mm3 (4.5-10.0)
[2019-10-20 05:16] LABS: Blood Urea Nitrogen 39 mg/dL (9-20); Calcium 8.7 mg/dL (8.4-10.2); Carbon Dioxide 33 mmol/L (22-30); Chloride 98 mmol/L (98-107); Estimated CRCL calculation 49 ml/min; Estimated Glomerular Filt Rate > 60; Glucose 85 mg/dL (75-110); Magnesium 1.9 mg/dL (1.6-2.3); Potassium 4.2 mmol/L (3.4-5.0); Sodium 135 mmol/L (137-145)
[2019-10-20 05:31] LABS: Troponin I 0.952 ng/mL (0.000-0.034)
--- NOTE | 2019-10-20 07:30 | ECG_ITS ---
Measurements Intervals [place] Rate: 49 P: 22 MN: 145 QRS: -52 QRSD: 148 T: 30 QT: 491 QTc: 448 Interpretive Statements SINUS BRADYCARDIA RIGHT BUNDLE BRANCH BLOCK LEFT ANTERIOR FASCICULAR BLOCK BASELINE ARTIFACT- I, II ABNORMAL ECG Electronically Signed On 10-20-2019 10:21:30 CDT by Jhonny Beck D.O.
[2019-10-20] MEDS: DOXYCYCLINE HYCLATE 100 MG TABLET PO ×2 (08:01→20:15)
[2019-10-20] MEDS: MELOXICAM 7.5 MG TABLET 15 MG PO (08:02)
[2019-10-20] MEDS: ASPIRIN 81 MG CHEWABLE TABLET PO (08:02)
[2019-10-20] MEDS: TAMSULOSIN HCL 0.4 MG CAPSULE PO (08:02)
[2019-10-20] MEDS: NEBIVOLOL HCL 5 MG TABLET PO (08:02)
[2019-10-20] MEDS: ATORVASTATIN 20 MG TABLET PO (08:03)
[2019-10-20] MEDS: MESALAMINE 400 MG DELAYED RELEASE CAPSULE 800 MG PO ×2 (08:03→14:14)
--- NOTE | 2019-10-20 08:24 | PM.IMPN ---
Progress Note: A&P Assessment and Plan (1) Chest pain: Qualifiers: Chest pain type: unspecified Qualified Code(s): R07.9 - Chest pain, unspecified Code(s): R07.9 - Chest pain, unspecified Status: Acute Assessment and Plan: Patient has a history of CAD His troponins were elevated on arrival and were trending up, repeat troponin are now starting to trend back down. Due to patient's troponin elevation and chest pain he was diagnosed with a NSTEMI by cardiology Cardiology was consulted by the emergency room and they recommend continuing his beta july, statin, starting aspirin 81 mg and potentially undergoing a catheterization today. Waiting for Cardiology to evaluate to see if he is going to go to the labeling specialist. Continue monitoring for chest pain. Nitroglycerin as needed. Cardiology's input is greatly appreciated. (2) Atrial fibrillation with rapid ventricular response: Code(s): I48.91 - Unspecified atrial fibrillation Status: Acute Assessment and Plan: Patient was found to be in AFib with RVR on arrival. He was initially started on a Cardizem drip and he received IV amiodarone which converted him back into normal sinus rhythm at around 7:00 p.m. last night. Currently, he is in NSR with a bradycardic heart rate at 58 beats per minute. Few PVCs and PACs noted. No other acute abnormality is noted. CHADS-VASc score 4 Will continue with anticoagulation with SQ Lovenox. TSH was normal Echocardiogram showed Left ventricular chamber dimension is mildly enlarged. Left ventricular systolic function is normal, estimated at 65-70%. There is severely increased left ventricular wall thickness. The left ventricular diastolic function is indeterminate. Continue monitoring. Continue with Cardiology recommendations. (3) Acute pulmonary edema: Code(s): J81.0 - Acute pulmonary edema Status: Acute Assessment and Plan: Likely secondary to the liter of NS the patient received in the ER as his repeat CXR was much worse after he arrived to the floor. Patient's lungs sound much improved today and creatinine is stable. Will discontinue IV Lasix at this time and monitoring his fluid status. Echocardiogram shows normal systolic function but diastolic function is unable to be determined. He does have severely increased LVH which usually suggest diastolic dysfunction. Continue monitoring. (4) Elevated troponin: Code(s): R79.89 - Other specified abnormal findings of blood chemistry Status: Acute Assessment and Plan: Cardiology believe secondary to NSTEMI verses atrial fibrillation with RVR. Repeat troponins yesterday showed that they were beginning to trending down Cardiology may complete a catheterization on the patient today. Patient is currently NPO. Continue trending troponin. (5) Acute renal failure: Qualifiers: Acute renal failure type: unspecified Qualified Code(s): N17.9 - Acute kidney failure, unspecified Code(s): N17.9 - Acute kidney failure, unspecified Status: Acute Assessment and Plan: Patient's creatinine on arrival was 1.3 and his normal was around 0.9 After IV Lasix his creatinine improved to 1.1 which is closer to his baseline. Will hold further diuresis at this time. Monitor renal function. Avoid nephrotoxic agents. Renally dose medications. (6) Anemia: Qualifiers: Anemia type: unspecified type Qualified Code(s): D64.9 - Anemia, unspecified Code(s): D64.9 - Anemia, unspecified Status: Chronic Assessment and Plan: H&H is improved from prior hospitalization. No signs of acute blood loss. Monitor H/H, transfuse prn.
--- NOTE | 2019-10-20 09:12 | WPDMODSED ---
Moderate Sedation Note-Pt Data Patient Data Diagnosis: Paroxysmal atrial fibrillation Aortic stenosis Questionable history of coronary disease/previous intervention Chest pain and troponin rise in the setting of AF/RVR Present Complaint: No complaints this morning Procedure to be performed/Plan: Coronary angiogram(clinical concern is regarding coronary artery disease. Patient has aortic stenosis but is not felt to be a candidate for AVR given his dementia) Allergies Allergy/AdvReac Type Severity Reaction Status Date / Time Sulfa (Sulfonamide Allergy Unknown Unknown Verified 10/18/19 22:30 Antibiotics) Home Medications Medication Instructions Recorded Confirmed Type Daliresp 500 mcg PO DAILY 08/27/19 10/19/19 History Linzess 72 mcg PO DAILY 08/27/19 10/19/19 History Ventolin HFA 90 mcg PO Q6H PRN 08/27/19 10/19/19 History acetaminophen 650 mg PO DAILY PRN 08/27/19 10/19/19 History atorvastatin 20 mg PO DAILY 08/27/19 10/19/19 History cholecalciferol (vitamin D3) 50,000 units PO MONTHLY 08/27/19 10/19/19 History docusate sodium 100 mg PO DAILY PRN 08/27/19 10/19/19 History guaifenesin 30 ml PO Q6H PRN 08/27/19 10/19/19 History hydrocodone-acetaminophen 1 tablet PO Q6H PRN 08/27/19 10/19/19 History meloxicam 15 mg PO DAILY 08/27/19 10/19/19 History sodium chloride [Saline Nasal] 2 spray INTRANASAL QID PRN 08/27/19 10/19/19 History tamsulosin 0.4 mg PO DAILY 08/27/19 10/19/19 History mesalamine [Delzicol] 800 mg PO TID 30 Days #180 each 08/30/19 10/19/19 Rx nebivolol [Bystolic] 5 mg PO DAILY 30 Days #30 tablet 08/30/19 10/19/19 Rx ferrous sulfate 325 mg PO DAILY 10/19/19 10/19/19 History Current Medications: Active Medications Acetaminophen (Tylenol Tablet) 650 mg PO Q4H PRN PRN Reason: Mild Pain (1-3) or Fever Hydrocodone Bitart/Acetaminophen ([place] 5-325 Mg) 1 tab PO Q6H PRN PRN Reason: Pain 4-6 Albuterol (Proventil Hfa) 1 puff INHALATION Q6H PRN PRN Reason: Shortness Of Breath Aspirin (Aspirin Chewable) 81 mg PO DAILY@0800 [facility] Last Admin: 10/20/19 08:02 Dose: 81 mg Documented by: Atorvastatin Calcium (Lipitor) 20 mg PO DAILY [facility] Last Admin: 10/20/19 08:03 Dose: 20 mg Documented by: Docusate Sodium (Colace Capsule) 100 mg PO DAILY PRN PRN Reason: Constipation Doxycycline Hyclate (Vibramycin Tab) 100 mg PO Q12HR [facility] Last Admin: 10/20/19 08:01 Dose: 100 mg Documented by: Enoxaparin Sodium (Lovenox) 65 mg SUB-Q HS [facility] Last Admin: 10/19/19 20:24 Dose: 65 mg Documented by: Ergocalciferol (Drisdol) 50,000 unit PO MONTHLY [facility] Stop: 11/18/19 09:01 Ferrous Sulfate (Ferrous Sulfate) 324 mg PO DAILY@1200 [facility] Last Admin: 10/19/19 12:43 Dose: 324 mg Documented by: Guaifenesin (Guaifenesin Liq) 600 mg PO Q6H PRN PRN Reason: Cough Sodium Chloride (Normal Saline Iv) 500 mls @ 100 mls/hr IV CONT .Q5H [facility] Meloxicam (Mobic) 15 mg PO DAILY [facility] Stop: 11/18/19 09:01 Last Admin: 10/20/19 08:02 Dose: 15 mg Documented by: Mesalamine (Delzicol) 800 mg PO TID [facility] Last Admin: 10/20/19 08:03 Dose: 800 mg Documented by: Morphine Sulfate (Morphine Sulfate Inj) 4 mg IV PUSH Q2H PRN PRN Reason: Pain Rated 7-10 Nebivolol (Bystolic) 5 mg PO DAILY [facility] Last Admin: 10/20/19 08:02 Dose: 5 mg Documented by: Non-Formulary Medication (Linaclotide [Linzess]) 72 mcg PO DAILY [facility] Stop: 11/18/19 09:01 Last Admin: 10/19/19 22:01 Dose: Not Given Documented by: Ondansetron HCl (Zofran Inj) 4 mg IV PUSH Q4H PRN PRN Reason: Nausea Sodium Chloride ([place] Nasal Kermit) 2 spray NASAL QID PRN PRN Reason: Nasal Congestion Tamsulosin HCl (Flomax) 0.4 mg PO DAILY [facility] Last Admin: 10/20/19 08:02 Dose: 0.4 mg Documented by: Sedation/Anesthesia: No previous sedation/anesthesia problems (including family history). [facility] Past Medical History Medical History (Updated 10/19/19 @ 13:07 by Momo Chua MD) Alzheimer disease COPD (chronic obstructive pulmonary disease) Crohn's disease CVA (cerebr
--- NOTE | 2019-10-20 11:04 | WPDCARDPROC ---
Cardiac Cath Procedure Note Date of procedure:: 10/20/19 Performing physician:: Harsh Marquez MD Indication:: Chest pain, elevation in troponin in the setting of AFib RVR aortic stenosis questionable history of previous coronary stenting Brief clinical history:: 74-year-old patient known to have aortic valve stenosis and presented to the hospital with AFib, RVR and in that setting was having chest pain. Troponin level panfilo to 1.4 raising concern regarding status of coronary artery disease. Patient is also demented. He is not felt to be a candidate for aggressive treatment of his aortic valve disease Procedure Procedure performed:: coronary angiogram Sedation/Medication given:: no sedation given since the patient is demented Access site:: right femoral artery Estimated blood loss:: 15-20 cc Procedure note:: patient was brought to the cardiac catheterization lab in the postabsorptive state. Because of his dementia I chose to forego any sedation. the right femoral triangle was prepped and draped in the usual fashion. I infiltrated 1% lidocaine subcutaneously above the femoral pulse. Following this the femoral artery was punctured using modified Seldinger technique and a guidewire was placed into the femoral artery. There was significant tortuosity of his iliac artery resulting in my decision to place a long 5 Salvadorean sheath. After this coronary angiograms were performed using a 5 Salvadorean FL4 catheter for the left coronary artery and a 5 Salvadorean JR4 catheter for the right coronary. Cineangiograms were then reviewed and the case was terminated. 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 Because of the tortuous, diseased iliofemoral system I did not believe he was a good candidate to receive an Angio-Seal device. He left the catheterization lab in stable condition no procedural complication and no evidence of a groin hematoma Findings:: hemodynamics: Central aortic pressure is 205/84 left main coronary is widely patent left anterior descending is a moderate caliber artery extending down to and around the apex. The LAD has modest luminal irregularity in the proximal 1/3 but no more than 20% stenosis is identified any projection the circumflex is a large caliber artery giving rise to the marginal branches and a posterior branch. The circumflex is smooth and angiographically normal in appearance right coronary artery is medium in caliber dominant to the posterior circulation angiographically smooth and normal in appearance in no projection did I see any evidence of previous coronary stent material having been deployed. History of previous coronary stenting appears to be erroneously Conclusion:: minimal luminal plaquing in the proximal 3rd of the LAD otherwise no angiographically significant coronary disease with right coronary dominant circulation severe systemic hypertension tortuous right iliac artery requiring long sheath to be placed to assist in performing this angiogram Harsh Marquez MD [facility]
[2019-10-20] MEDS: FERROUS SULFATE 324 MG TABLET PO (14:14)
[2019-10-20] MEDS: SODIUM CHLORIDE 0.9% IV 1,000 ML 125 ML IV CONT (14:14)
[2019-10-20] MEDS: ACETAMINOPHEN 325 MG TABLET 650 MG PO (17:18)
[2019-10-20] MEDS: ENOXAPARIN 80 MG/0.8 ML SYRINGE 65 MG SUB-Q (20:57)
[2019-10-21] VITALS (12 sets, daily range): BP systolic 148–164; BP diastolic 72–91; PULSE 48–60; RESP 18–24; TEMP 36.3–36.9; O2SAT 96–100
[2019-10-21 05:41] LABS: Hematocrit 42.8 % (42.0-52.0); Hemoglobin 13.7 g/dL (14.0-18.0); Immature Platelet Fraction Pct 4.3 % (0.9-11.2); Mean Corpuscular Hemoglobin 30.6 pg (26-34); Mean Corpuscular Volume 95.7 fl (80-100); Mean Platelet Volume 11.7 fl (7.4-10.4); Platelet Count Result 138 k/mm3 (150-375); Red Blood Count 4.47 M/mm3 (4.6-6.20); Red Cell Distribution Width 14.9 % (11.5-14.5); White Blood Count 6.4 K/mm3 (4.5-10.0)
[2019-10-21 05:53] LABS: Blood Urea Nitrogen 30 mg/dL (9-20); Calcium 8.8 mg/dL (8.4-10.2); Carbon Dioxide 30 mmol/L (22-30); Chloride 102 mmol/L (98-107); Estimated CRCL calculation 54 ml/min; Estimated Glomerular Filt Rate > 60; Glucose 82 mg/dL (75-110); Potassium 4.1 mmol/L (3.4-5.0); Sodium 137 mmol/L (137-145)
[2019-10-21] MEDS: MESALAMINE 400 MG DELAYED RELEASE CAPSULE 800 MG PO ×2 (09:07→12:59)
[2019-10-21] MEDS: NEBIVOLOL HCL 5 MG TABLET PO ×2 (09:07→12:58)
[2019-10-21] MEDS: MELOXICAM 7.5 MG TABLET 15 MG PO (09:08)
[2019-10-21] MEDS: ASPIRIN 81 MG CHEWABLE TABLET PO (09:08)
[2019-10-21] MEDS: TAMSULOSIN HCL 0.4 MG CAPSULE PO (09:08)
[2019-10-21] MEDS: DOXYCYCLINE HYCLATE 100 MG TABLET PO (09:08)
[2019-10-21] MEDS: ATORVASTATIN 20 MG TABLET PO (09:08)
--- NOTE | 2019-10-21 10:38 | PM.PNCARD ---
Progress Note: A&P Assessment and Plan (1) Acute coronary syndrome: Code(s): I24.9 - Acute ischemic heart disease, unspecified Status: Acute Assessment and Plan: Patient appears to have a non ST elevation myocardial infarction. cardiac catheterization shows no significant CAD. Troponin elevation is related to his aortic stenosis with atrial fibrillation and rapid ventricular response. . (2) Atrial fibrillation with rapid ventricular response: Code(s): I48.91 - Unspecified atrial fibrillation Status: Acute Assessment and Plan: Increase Bystolic to 10 mg daily (3) Chest pain: Qualifiers: Chest pain type: unspecified Qualified Code(s): R07.9 - Chest pain, unspecified Code(s): R07.9 - Chest pain, unspecified Status: Acute Assessment and Plan: Currently resolved and related to his an non STEMI (4) Nonrheumatic aortic (valve) stenosis: Code(s): I35.0 - Nonrheumatic aortic (valve) stenosis Status: Acute Assessment and Plan: Moderate (5) Alzheimer disease: Qualifiers: Alzheimer's disease onset: unspecified onset Dementia behavioral disturbance: without behavioral disturbance Qualified Code(s): G30.9 - Alzheimer's disease, unspecified; F02.80 - Dementia in other diseases classified elsewhere without behavioral disturbance Code(s): G30.9 - Alzheimer's disease, unspecified; F02.80 - Dementia in other diseases classified elsewhere without behavioral disturbance Status: Chronic Assessment and Plan: Significant (6) Paroxysmal atrial fibrillation with rapid ventricular response: Code(s): I48.0 - Paroxysmal atrial fibrillation Status: Acute Assessment and Plan: back in sinus rhythm. previously deemedNot an anticoagulation candidate (7) Hypertension: Code(s): I10 - Essential (primary) hypertension Status: Acute Assessment and Plan: increasing Bystolic Subjective Date/time seen: 10/21/19 10:38 Interval history: Reason for admission: Chest pain Date of service 10/21/2019: doing okay today. No groin pain, chest pain, shortness of breath. Rhythm is stable. Review of Systems Review of Systems: All systems reviewed & are unremarkable except as noted in HPI and below Constitutional: Constitutional: Denies fatigue, Denies headache(s) and Denies weakness Eyes: Eyes: Denies blurry vision ENT: Reports Normal hearing present, Denies headache(s), Denies lip swelling, Denies epistaxis and Denies neck pain Cardiovascular: Cardiovascular: Reports chest pain and Reports dyspnea Respiratory: Respiratory: Reports dyspnea Gastrointestinal: Gastrointestinal: Denies abdominal pain Genitourinary: Genitourinary: Denies dysuria Musculoskeletal: Musculoskeletal: Denies back pain, Denies neck pain and Denies numbness Integumentary/Breasts: Skin/Breast: Denies dry skin Neurologic: Reports Normal hearing present, Denies confusion, Denies headache(s), Denies numbness and Denies weakness Psychiatric: Psychiatric: Denies anxiety and Denies confusion Endocrine: Endocrine: Denies fatigue Hematologic/Lymphatic: Hematologic/Lymphatic: Denies easy bleeding Allergic/Immunologic: Allergic/Immunologic: Denies GI upset with certain foods and Denies lip swelling Exam Narrative: Exam Narrative: Alert Const: General: no acute distress; No confusion Orientation/consciousness: No confusion HENMT: General nose exam: Normal nares present Eyes: Sclera: sclerae normal Neck: Neck: supple and no JVD Chest: Other: No reproducible chest wall pain on palpation Resp: Other: Coarse bilateral breath sounds Cardio: Rhythm: regular rhythm Heart sounds: Murmur heart sound present Skin: General skin exam: normal color Neuro: General: No confusion Cranial nerves: Yes Normal hearing present Cognition (Neuro): abnormal cognition Speech: normal speech Extrem: General: normal
[2019-10-21] MEDS: FERROUS SULFATE 324 MG TABLET PO (12:59)
[2019-10-21 13:11] LABS: SARS-CoV-2 RNA PCR Negative
--- NOTE | 2019-10-21 13:59 | PM.DS ---
DS: Admitting Diagnosis Admitting Diagnosis Admitting Diagnosis: Unspecified atrial fibrillation DS: Discharge Diagnosis Discharge Diagnosis (1) Chest pain: Qualifiers: Chest pain type: unspecified Qualified Code(s): R07.9 - Chest pain, unspecified Code(s): R07.9 - Chest pain, unspecified Status: Acute Assessment and Plan: Patient has a history of CAD His troponins were elevated on arrival and were trending up, repeat troponin are now starting to trend back down. Due to patient's troponin elevation and chest pain he was diagnosed with a NSTEMI by cardiology Cardiology was consulted by the emergency room and they recommend continuing his beta july, statin, starting aspirin 81 mg The patient underwent a cardiac catheterization which just showed some no significant coronary artery disease. At this time the patient was discharged home to follow-up with cardiology as an outpatient. Patient denies any more chest pain since admission. (2) Atrial fibrillation with rapid ventricular response: Code(s): I48.91 - Unspecified atrial fibrillation Status: Acute Assessment and Plan: Patient was found to be in AFib with RVR on arrival. He was initially started on a Cardizem drip and he received IV amiodarone which converted him back into normal sinus rhythm. Currently, he is in NSR with a bradycardic heart rate at 59 beats per minute. Few PVCs and PACs noted. No other acute abnormality is noted. TSH was normal Echocardiogram showed Left ventricular chamber dimension is mildly enlarged. Left ventricular systolic function is normal, estimated at 65-70%. There is severely increased left ventricular wall thickness. The left ventricular diastolic function is indeterminate. Cardiology increased the patient's Bystolic to 10 mg daily for better heart rate control. The patient is not on any anticoagulation at home due to his advanced dementia and fall risk. (3) Acute pulmonary edema: Code(s): J81.0 - Acute pulmonary edema Status: Acute Assessment and Plan: Likely secondary to the liter of NS the patient received in the ER as his repeat CXR was much worse after he arrived to the floor. Patient's lungs sound much improved today and creatinine is stable. Echocardiogram shows normal systolic function but diastolic function is unable to be determined. He does have severely increased LVH which usually suggest diastolic dysfunction. Do not feel the patient needs any diuretics to go home with and believes it was secondary to IV fluids that were given in the emergency department. (4) Elevated troponin: Code(s): R79.89 - Other specified abnormal findings of blood chemistry Status: Acute Assessment and Plan: Cardiology believe secondary to NSTEMI verses atrial fibrillation with RVR. Repeat troponins yesterday showed that they were beginning to trending down (5) Acute renal failure: Qualifiers: Acute renal failure type: unspecified Qualified Code(s): N17.9 - Acute kidney failure, unspecified Code(s): N17.9 - Acute kidney failure, unspecified Status: Acute Assessment and Plan: Patient's creatinine on arrival was 1.3 and his normal was around 0.9 Creatinine improved to 1. (6) Anemia: Qualifiers: Anemia type: unspecified type Qualified Code(s): D64.9 - Anemia, unspecified Code(s): D64.9 - Anemia, unspecified Status: Chronic Assessment and Plan: H&H is improved from prior hospitalization. No signs of acute blood loss. Monitor H/H, transfuse prn. (7) Alzheimer disease: Qualifiers: Alzheimer's disease on
== END 2019-10-21 15:00 | DRG 280 ==
LOC: ANHED 22:17 → ANHIMU 22:34
PROVIDERS: Internal Medicine Cardiovascular Disease; Nurse Practitioner Adult Health; Physician Assistant; Specialist; Admitting Provider Family Medicine; Emergency Provider Emergency Medicine; Visit Provider Family Medicine
PROC: 4A023N7 Measurement of Cardiac Sampling and Pressure, Left Heart, Percutaneous Approach (ICD-10-PCS; CPT 93454; principal; 2019-10-20 09:30)
DX: I21.4 Non-ST elevation (NSTEMI) myocardial infarction (principal); J81.0 Acute pulmonary edema; N17.9 Acute kidney failure, unspecified; E87.1 Hypo-osmolality and hyponatremia; K50.90 Crohn's disease, unspecified, without complications; T46.3X5A Adverse effect of coronary vasodilators, initial encounter; I48.0 Paroxysmal atrial fibrillation; Z11.59 Encounter for screening for other viral diseases; D64.9 Anemia, unspecified; G30.9 Alzheimer's disease, unspecified; F02.80 Dementia in other diseases classified elsewhere, unspecified severity, without behavioral disturbance, psychotic disturbance, mood disturbance, and anxiety; J44.9 Chronic obstructive pulmonary disease, unspecified; I35.0 Nonrheumatic aortic (valve) stenosis; I45.10 Unspecified right bundle-branch block; I25.10 Atherosclerotic heart disease of native coronary artery without angina pectoris; F32.9 Major depressive disorder, single episode, unspecified; F17.210 Nicotine dependence, cigarettes, uncomplicated; Z86.73 Personal history of transient ischemic attack (TIA), and cerebral infarction without residual deficits; I25.2 Old myocardial infarction
CPT/HCPCS: 36415; 71045; 80048; 80053; 83735; 83880; 84443; 84484; 85025; 85027; 85055; 85610; 85730; 87635; 93005; 93306; 93454; 96361; 96374; 99285; A9270; C1769; C1887; C1894; C9803; J0282; J0360; J1160; J1644; J1650; J1940; J2250; J2405; J3010; J7030; J7040; U0003

== ENCOUNTER 2020-03-08 16:46 | Emergency (ER) | payer MEDICARE, MEDICAID, SELFPAY ==
--- NOTE | ~2020-03-08 | XR_ITS ---
XR chest 2V 03/08/2020 17:46 Indication: Generalized chest pain. COPD. Procedure: AP and lateral views of the chest Comparison: Comparison to multiple prior studies sequentially, with oldest reviewed study dated 06/03. Findings: There are chronic infiltrates of the right middle lobe. Heart size normal. Left lung clear. No pleural effusion, edema or pneumothorax. Advanced osteoarthritis of the glenohumeral joints. Impression: 1: Chronic right middle lobe infiltrates, most likely atelectasis/scarring. Atypical pneumonia less f avored. Reviewed, dictated and finalized at location A. Impression: 1: Chronic right middle lobe infiltrates, most likely atelectasis/scarring. Aty pical pneumonia less favored.
[2020-03-08 16:46] VITALS: BP 163/79; PULSE 51; RESP 24; TEMP 37.1; O2SAT 98
--- NOTE | 2020-03-08 16:57 | ECG_ITS ---
Measurements Intervals [place] Rate: 49 P: 33 ID: [id number] QRS: -65 QRSD: 150 T: 53 QT: 472 QTc: 430 Interpretive Statements SINUS BRADYCARDIA RIGHT BUNDLE BRANCH BLOCK LEFT ANTERIOR FASCICULAR BLOCK BASELINE ARTIFACT- V1-V6 ABNORMAL ECG Electronically Signed On 03-08-2020 19:10:13 CDT by Jhonny Beck D.O.
[2020-03-08 17:19] LABS: Basophils Percent Auto 0.6 % (0.2-1.2); Eosinophils Absolute Auto 0.3 K/mm3 (0-0.3); Eosinophils Percent Auto 4.6 % (0-4.4); Hematocrit 41.5 % (42.0-52.0); Hemoglobin 13.6 g/dL (14.0-18.0); Immature Granulocyte Absolute 0.02 K/mm3 (0.00-0.031); Immature Granulocyte Percent A 0.3 % (0-0.5); Immature Platelet Fraction Pct 7.7 % (0.9-11.2); Lymphocytes Absolute Auto 1.42 K/mm3 (0.9-3.2); Lymphocytes Percent Auto 21.8 % (18.3-44.2); Mean Corpuscular HGB Conc 32.8 g/dl (32-36); Mean Corpuscular Hemoglobin 30.8 pg (26-34); Mean Corpuscular Volume 93.9 fl (80-100); Mean Platelet Volume 11.6 fl (7.4-10.4); Monocytes Absolute Auto 0.7 K/mm3 (0.1-0.6); Monocytes Percent Auto 10.8 % (2.6-8.5); Neutrophils Percent Auto 61.9 % (45.5-73.1); Platelet Count Result 135 k/mm3 (150-375); Red Blood Count 4.42 M/mm3 (4.6-6.20); Red Cell Distribution Width 14.3 % (11.5-14.5); White Blood Count 6.5 K/mm3 (4.5-10.0)
[2020-03-08 17:26] LABS: INR 1.1; Prothrombin Time 14.1 Seconds (11.1-14.7)
[2020-03-08 17:27] LABS: Partial Thromboplastin Time 34.3 SECONDS (22.3-36.8)
[2020-03-08 17:28] LABS: Anion Gap 7 mmol/L (8-16); Blood Urea Nitrogen 33 mg/dL (9-20); Calcium 9.2 mg/dL (8.4-10.2); Carbon Dioxide 33 mmol/L (22-30); Chloride 98 mmol/L (98-107); Estimated Glomerular Filt Rate > 60; Glucose 91 mg/dL (75-110); Potassium 4.1 mmol/L (3.4-5.0); Sodium 138 mmol/L (137-145)
[2020-03-08 17:40] LABS: Troponin I < 0.012 ng/mL (0.000-0.034)
[2020-03-08 17:54] VITALS: BP 158/89; PULSE 57; RESP 17; O2SAT 97
[2020-03-08 19:00] VITALS: BP 146/106; PULSE 53; RESP 16; O2SAT 98
[2020-03-08 19:01] VITALS: PULSE 58
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
[2020-03-08 20:02] LABS: Troponin I < 0.012 ng/mL (0.000-0.034)
[2020-03-08 20:57] VITALS: BP 144/98; PULSE 54; RESP 15; O2SAT 98
--- NOTE | 2020-03-08 21:18 | PC.NURSE ---
[facility] ems eta [id number]
--- NOTE | 2020-03-08 22:36 | PC.NURSE ---
EMS CONCERNED ABOUT PT BP ON DEPT FROM ED DID MANUAL IN TRUCK 178/84 AGREEABLE TO TAKE PT TO [facility] CONTINUING TO CALL [facility] TO DISCUSS PT DC
== END 2020-03-08 22:00 ==
PROVIDERS: Emergency Provider Emergency Medicine
DX: R07.89 Other chest pain (principal); I35.0 Nonrheumatic aortic (valve) stenosis; J44.9 Chronic obstructive pulmonary disease, unspecified; I48.91 Unspecified atrial fibrillation; K50.90 Crohn's disease, unspecified, without complications; Z86.73 Personal history of transient ischemic attack (TIA), and cerebral infarction without residual deficits; I10 Essential (primary) hypertension; I25.2 Old myocardial infarction; G30.9 Alzheimer's disease, unspecified; F02.80 Dementia in other diseases classified elsewhere, unspecified severity, without behavioral disturbance, psychotic disturbance, mood disturbance, and anxiety; F17.210 Nicotine dependence, cigarettes, uncomplicated; R00.1 Bradycardia, unspecified; I45.2 Bifascicular block
CPT/HCPCS: 36415; 71046; 80048; 84484; 85025; 85055; 85610; 85730; 93005; 96374; 99284; A9270; J0360

== ENCOUNTER 2020-03-08 23:03 | Emergency (ER) | payer MEDICARE, MEDICAID, SELFPAY ==
[2020-03-08 22:56] VITALS: BP 228/85; PULSE 55; RESP 18; TEMP 36.8; O2SAT 98
[2020-03-08 23:18] VITALS: BP 183/88; RESP 18; O2SAT 99
[2020-03-08] MEDS: NITROGLYCERIN SL 0.4 MG TABLET SUBLINGUAL (23:25)
[2020-03-08] MEDS: NITROGLYCERIN OINTMENT 1 INCH DOSE TRANSDERM (23:27)
[2020-03-08 23:43] VITALS: PULSE 47
--- NOTE | 2020-03-08 23:43 | PC.NURSE ---
MD notified of patient's heart rate of 47. MD instructed to give Bystolic still.
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
[2020-03-08] MEDS: NEBIVOLOL HCL 5 MG TABLET PO (23:57)
[2020-03-09] VITALS (8 sets, daily range): BP systolic 131–196; BP diastolic 56–98; PULSE 60; RESP 16; O2SAT 97
[2020-03-09] MEDS: hydrALAZINE HCL 20 MG/ML VIAL 10 MG IV PUSH (00:54)
[2020-03-09] MEDS: amLODIPine BESYLATE 5 MG TABLET 10 MG PO (03:13)
--- NOTE | 2020-03-09 05:15 | PC.NURSE ---
called [facility] to transport back to [place], [address] [id number]
== END 2020-03-09 07:40 ==
PROVIDERS: Emergency Provider Emergency Medicine
DX: I10 Essential (primary) hypertension (principal); G30.9 Alzheimer's disease, unspecified; F02.80 Dementia in other diseases classified elsewhere, unspecified severity, without behavioral disturbance, psychotic disturbance, mood disturbance, and anxiety; J44.9 Chronic obstructive pulmonary disease, unspecified; K50.90 Crohn's disease, unspecified, without complications; Z86.73 Personal history of transient ischemic attack (TIA), and cerebral infarction without residual deficits; I25.2 Old myocardial infarction; I35.0 Nonrheumatic aortic (valve) stenosis; F17.210 Nicotine dependence, cigarettes, uncomplicated
CPT/HCPCS: 96374; 99284; A9270; J0360

== ENCOUNTER 2020-06-17 05:32 | Emergency (ER) | payer MEDICARE, MEDICAID, SELFPAY ==
--- NOTE | ~2020-06-17 | CT_ITS ---
EXAMINATION: CT brain wo con DATE: 06/17/2020 06:16 INDICATION: Head injury. TECHNIQUE: Computed tomography (CT) of the head was performed without intravenous contrast. The mA wa s adjusted according to patient size. Iterative reconstruction technique was employed. The dose-lengt h product was 681.00 mGy-cm. COMPARISON: Head CT 11/22/2016 FINDINGS: There is an old infarct in right frontotemporal parietal region. There are scattered areas of low attenuation in the cerebral white matter. There is no intracranial hemorrhage, acute infarctio n, or abnormal intracranial mass lesion. The lateral ventricles and third ventricle are mildly dilate d out of proportion to the size of the sulci. There is mucosal thickening in the paranasal sinuses. T he orbits are normal. The mastoid air cells are normal. IMPRESSION: 1. 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 2. Stable mild nonspecific cerebral white matter disease, which likely represents chronic small vesse l ischemic disease. 3. Stable ventriculomegaly involving the lateral and third ventricles. Correlate clinically for preeti l pressure hydrocephalus. Reviewed, dictated and finalized at location [facility]. PULLER IMPRESSION: 1. 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 2. Stable mild nonspecific cerebral white matter disease, which likely represen ts chronic small vessel ischemic disease. 3. Stable ventriculomegaly involving the lateral and third ventricles. Correlat e clinically for normal pressure hydrocephalus.
[2020-06-17 05:28] VITALS: BP 155/67; PULSE 55; RESP 20; TEMP 36.7; O2SAT 96
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
[2020-06-17 06:53] VITALS: BP 178/72; PULSE 50; RESP 18; O2SAT 95
--- NOTE | 2020-06-17 07:10 | PC.NURSE ---
bedside report with cat y, rn. pt asleep prone position on stretcher. vs stable. no distress.
--- NOTE | 2020-06-17 07:31 | PC.NURSE ---
[facility] has arrived
[2020-06-17 07:42] VITALS: BP 162/53; PULSE 51; RESP 15; O2SAT 96
--- NOTE | 2020-06-17 07:44 | PC.NURSE ---
d/c to nsg home via ems. no c/o pain or distress. orient x 2. talkative with rn and ems crew.
== END 2020-06-17 07:44 ==
PROVIDERS: Emergency Provider Emergency Medicine; PCP Internal Medicine
DX: S09.90XA Unspecified injury of head, initial encounter (principal); G30.9 Alzheimer's disease, unspecified; F02.80 Dementia in other diseases classified elsewhere, unspecified severity, without behavioral disturbance, psychotic disturbance, mood disturbance, and anxiety; J44.9 Chronic obstructive pulmonary disease, unspecified; K50.90 Crohn's disease, unspecified, without complications; Z86.73 Personal history of transient ischemic attack (TIA), and cerebral infarction without residual deficits; I10 Essential (primary) hypertension; I25.2 Old myocardial infarction; I35.0 Nonrheumatic aortic (valve) stenosis; F17.210 Nicotine dependence, cigarettes, uncomplicated; R90.82 White matter disease, unspecified; W06.XXXA Fall from bed, initial encounter
CPT/HCPCS: 70450; 99284

== ENCOUNTER 2021-03-03 16:20 | Emergency (ER) | payer MEDICARE, MEDICAID, SELFPAY ==
--- NOTE | ~2021-03-03 | XR_ITS ---
XR chest 2V 03/03/2021 16:41 Indication: Left-sided chest pain. COPD. Hypertension. Procedure: AP and lateral views of the chest Comparison: Comparison to multiple prior studies sequentially, with oldest reviewed study dated 02/09. Findings: There is chronic blunting right lateral costophrenic recess, likely pleural thickening. Hea rt size normal. No focal air space disease, pulmonary edema, pleural effusion or suspected pneumothor ax. The lungs are hyperinflated which is consistent with, but not diagnostic of chronic obstructive p ulmonary disease. There are advanced degenerative changes of the glenohumeral joints. Impression: 1: No acute cardiopulmonary disease. Reviewed, dictated and finalized at location A. Impression: 1: No acute cardiopulmonary disease.
--- NOTE | 2021-03-03 16:28 | ECG_ITS ---
Measurements Intervals [place] Rate: 53 P: 1 OK: 164 QRS: -52 QRSD: 152 T: 44 QT: 456 QTc: 432 Interpretive Statements SINUS BRADYCARDIA RIGHT BUNDLE BRANCH BLOCK LEFT ANTERIOR FASCICULAR BLOCK ABNORMAL ECG Electronically Signed On 03-03-2021 16:46:27 CDT by Jhonny Beck D.O.
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
[2021-03-03 16:30] VITALS: BP 140/72; PULSE 52; RESP 18; TEMP 36.6; O2SAT 100
[2021-03-03 16:34] VITALS: PULSE 62
[2021-03-03 17:15] LABS: Basophils Absolute Auto 0.1 K/mm3 (0.0-0.1); Basophils Percent Auto 0.7 % (0.2-1.2); Eosinophils Absolute Auto 0.4 K/mm3 (0-0.3); Hematocrit 40.3 % (42.0-52.0); Hemoglobin 13.5 g/dL (14.0-18.0); Immature Granulocyte Absolute 0.04 K/mm3 (0.00-0.031); Immature Granulocyte Percent A 0.4 % (0-0.5); Lymphocytes Absolute Auto 1.56 K/mm3 (0.9-3.2); Lymphocytes Percent Auto 16.3 % (18.3-44.2); Mean Corpuscular HGB Conc 33.5 g/dl (32-36); Mean Corpuscular Hemoglobin 30.3 pg (26-34); Mean Corpuscular Volume 90.4 fl (80-100); Mean Platelet Volume 11.2 fl (7.4-10.4); Monocytes Percent Auto 10.1 % (2.6-8.5); Neutrophils Absolute Auto 6.6 K/mm3 (1.3-6.7); Neutrophils Percent Auto 68.5 % (45.5-73.1); Platelet Count Result 182 k/mm3 (150-375); Red Blood Count 4.46 M/mm3 (4.6-6.20); Red Cell Distribution Width 14.2 % (11.5-14.5); White Blood Count 9.6 K/mm3 (4.5-10.0)
--- NOTE | 2021-03-03 17:21 | PC.NURSE ---
Dinner ordered for patient at this time.
[2021-03-03 17:24] LABS: INR 0.9; Prothrombin Time 12.5 Seconds (11.1-14.7)
[2021-03-03 17:25] LABS: Partial Thromboplastin Time 38.3 SECONDS (22.3-36.8)
[2021-03-03 17:29] LABS: Alanine Aminotransferase 28 U/L (4-50); Albumin Level 4.4 g/dL (3.5-5.1); Alkaline Phosphatase 83 U/L (38-126); Anion Gap 11 mmol/L (8-16); Aspartate Amino Transferase 34 U/L (17-59); Bilirubin,Total 0.3 mg/dL (0.2-1.3); Blood Urea Nitrogen 39 mg/dL (9-20); Calcium 9.4 mg/dL (8.4-10.2); Carbon Dioxide 26 mmol/L (22-30); Chloride 97 mmol/L (98-107); Estimated CRCL calculation 55 ml/min; Estimated Glomerular Filt Rate > 60; Glucose 102 mg/dL (65-110); Potassium 4.6 mmol/L (3.4-5.0); Sodium 134 mmol/L (137-145)
[2021-03-03 17:40] LABS: NT Pro B Type Natriuretic Pept 711 pg/mL (5-100); Troponin I < 0.012 ng/mL (0.000-0.034)
--- NOTE | 2021-03-03 18:27 | PC.NURSE ---
made contact with [facility] transfer pt to [phone]
--- NOTE | 2021-03-03 18:30 | PC.NURSE ---
Attempted to call [facility] to give report for patient return, no answer at this time.
[2021-03-03 18:53] VITALS: BP 117/52; PULSE 58; RESP 18; O2SAT 99
--- NOTE | 2021-03-03 19:03 | PC.NURSE ---
[facility] called to give report, Will LANGLEY
--- NOTE | 2021-03-03 19:48 | PC.NURSE ---
waiting transport to [facility] sitting in chair in room
[2021-03-03 20:10] VITALS: BP 120/84; PULSE 80; RESP 18; O2SAT 96
== END 2021-03-03 20:14 | disposition left against medical advice (07) ==
PROVIDERS: Emergency Provider Emergency Medicine
DX: R07.89 Other chest pain (principal); G30.9 Alzheimer's disease, unspecified; F02.80 Dementia in other diseases classified elsewhere, unspecified severity, without behavioral disturbance, psychotic disturbance, mood disturbance, and anxiety; J44.9 Chronic obstructive pulmonary disease, unspecified; K50.90 Crohn's disease, unspecified, without complications; Z86.73 Personal history of transient ischemic attack (TIA), and cerebral infarction without residual deficits; I10 Essential (primary) hypertension; I25.2 Old myocardial infarction; I35.0 Nonrheumatic aortic (valve) stenosis; F17.210 Nicotine dependence, cigarettes, uncomplicated; R00.1 Bradycardia, unspecified; I45.2 Bifascicular block
CPT/HCPCS: 36415; 71046; 80053; 83880; 84484; 85025; 85610; 85730; 93005; 99284

== ENCOUNTER 2021-03-15 19:48 | Emergency (ER) | payer MEDICARE, SELFPAY ==
--- NOTE | ~2021-03-15 | CT_ITS ---
EXAMINATION: CT brain wo con DATE: 03/15/2021 20:17 INDICATION: Head injury, laceration TECHNIQUE: Computed tomography (CT) of the head was performed without intravenous contrast. The mA wa s adjusted according to patient size. Iterative reconstruction technique was employed. Exam dose: 68 1.00 mGy-cm total exam DLP. COMPARISON: 06/17/2020 CT brain FINDINGS: Stable small focal high posterior right parietal cerebrovascular infarct. There is central and cortical cerebral atrophy. Bilateral vertebral artery, basilar artery and bilateral carotid siphon internal carotid artery calci fications. There is nonspecific diminished attenuation of the cerebral white matter, likely due to ch ronic small vessel ischemic changes. No intracranial mass lesion or hemorrhage or recent cerebrovascular accident is detected. No midline shift or mass effect effect. No subdural or epidural hematoma. No fracture or bone destruction of the cranial vault. Included paranasal sinuses and mastoid air cells are unremarkable. IMPRESSION: Cerebral atherosclerosis and chronic small vessel ischemic changes of cerebral white mat ter Chronic small posterior right parietal infarct Cerebral atrophy Reviewed, dictated and finalized at [facility]. Reviewed, dictated and finalized at location A. IMPRESSION: Cerebral atherosclerosis and chronic small vessel ischemic changes of cerebral white matter Chronic small posterior right parietal infarct Cerebral atrophy
[2021-03-15 19:44] VITALS: BP 154/67; PULSE 62; RESP 16; TEMP 37; O2SAT 97
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
[2021-03-15 21:40] VITALS: BP 155/56; PULSE 56; RESP 16; O2SAT 98
== END 2021-03-15 21:42 ==
PROVIDERS: Emergency Provider Emergency Medicine
DX: S01.01XA Laceration without foreign body of scalp, initial encounter (principal); G30.9 Alzheimer's disease, unspecified; F02.80 Dementia in other diseases classified elsewhere, unspecified severity, without behavioral disturbance, psychotic disturbance, mood disturbance, and anxiety; J44.9 Chronic obstructive pulmonary disease, unspecified; K50.90 Crohn's disease, unspecified, without complications; Z86.73 Personal history of transient ischemic attack (TIA), and cerebral infarction without residual deficits; I10 Essential (primary) hypertension; I25.2 Old myocardial infarction; I35.0 Nonrheumatic aortic (valve) stenosis; F17.210 Nicotine dependence, cigarettes, uncomplicated; V00.811A Fall from moving wheelchair (powered), initial encounter
CPT/HCPCS: 12002; 70450; 99284

== ENCOUNTER 2021-08-12 23:24 | Inpatient (IN) | payer OTHER, SELFPAY ==
--- NOTE | ~2021-08-12 | CT_ITS ---
EXAMINATION: CT brain wo con EXAM DATE: 08/13/2021 11:37 INDICATION: AMS TECHNIQUE: Spiral CT of the head was performed without contrast. Axial, coronal and sagittal images were reviewed. The dose-length product (DLP) for this examination was 605.33 mGy-cm. The exposure w as tailored according to patient size, and iterative reconstruction (ASIR) was used as additional dos e reduction technique. Comparison is made to prior examination from 03/15/2021. FINDINGS: Small old right frontoparietal lobe infarction. Mild to moderate atrophy and microangiopath y. There is no acute intraparenchymal hemorrhage. No evidence of intraparenchymal brain mass lesion. No evidence of acute infarction. There is no mass effect or midline shift. The ventricles are nor mal in size. There are no extra-axial collections. There are no acute calvarial fractures. The orbi ts are unremarkable. Soft tissue is unremarkable. The visualized sinuses and mastoid air cells are well aerated. IMPRESSION: 1. No acute intracranial findings. 2. Small old right frontoparietal lobe infarction. 3. Microangiopathy and atrophy. Reviewed, dictated and finalized at location A.
--- NOTE | ~2021-08-12 | CT_ITS ---
EXAMINATION: CTA chest PE protocol EXAM DATE: 08/13/2021 11:38 INDICATION: Hypoxia, shortness of breath. TECHNIQUE: Spiral CTA of the chest (pulmonary arteries) was performed with 100 cc Omnipaque 350 intr avenous contrast injection. Images were acquired during the pulmonary arterial phase. Coronal maxi mum intensity projection 3D-reconstructions were created by the technologist on dedicated workstation . Axial, coronal and sagittal reformatted images were reviewed. The dose-length product (DLP) for t his examination was 659.73 mGy-cm. The exposure was tailored according to patient size (auto mA exp osure control), and iterative reconstruction (ASIR) was used as additional dose reduction technique. Comparison is made to prior examination from 06/25/2017. FINDINGS: Pulmonary arteries are without intraluminal filling defects. Right middle lobe medial segm ental atelectasis. There are scattered small lung opacities probably acute infection, small regions o f confluence in the left upper lobe anteriorly. Other regions have tree-in-bud distribution. No thor acic aortic dissection. There are no pleural or pericardial effusions. Tracheobronchial tree is pa tent. Development of mild right hilar lymphadenopathy most likely reactive. There is no pneumothor ax. Heart normal in size. There is mild to moderate coronary arterial calcification, arterial scl erosis. Upper abdomen is unremarkable. There is moderate thoracic spondylosis without osteoblastic or osteolytic lesions identified. IMPRESSION: 1. Scattered small regions of airspace disease and tree-in-bud opacities most likely infection. 2. Interval development of mild right hilar lymphadenopathy probably reactive but 3 month follow-up chest CT to exclude possibility of cancer. 3. Right middle lobe medial segmental atelectasis. Reviewed, dictated and finalized at location A.
--- NOTE | ~2021-08-12 | XR_ITS ---
EXAMINATION: XR chest 1V portable DATE: 08/13/2021 00:03 INDICATION: Shortness of breath. TECHNIQUE: A single frontal view of the chest was obtained. COMPARISON: Chest 2 views 03/03/2021, CT abdomen and pelvis 08/27/2019 FINDINGS: There are interstitial and airspace opacities in the mid and lower lung zones. No pleural e ffusion or pneumothorax. The heart size is normal. IMPRESSION: 1. Interstitial and airspace opacities in the mid and lower lung zones, consistent with pulmonary jose ma versus pneumonia. Reviewed, dictated and finalized at location A. IMPRESSION: 1. Interstitial and airspace opacities in the mid and lower lung zones, consist ent with pulmonary edema versus pneumonia.
[2021-08-12 23:27] VITALS: BP 105/74; PULSE 96; RESP 20; TEMP 37.3; O2SAT 98
--- NOTE | 2021-08-12 23:32 | ECG_ITS ---
Measurements Intervals [place] Rate: 141 P: IA: 0 QRS: -48 QRSD: 145 T: 24 QT: 315 QTc: 483 Interpretive Statements ATRIAL FIBRILLATION WITH RAPID VENTRICULAR RESPONSE RIGHT BUNDLE BRANCH BLOCK [120+ ms QRS DURATION, UPRIGHT V1, 40+ ms S IN I/aVL/V4/V5/V6] LEFT ANTERIOR FASCICULAR BLOCK [QRS AXIS <= -45, QR IN I, RS IN II] COMPARED TO ECG 03/03/2021 16:27:13 ATRIAL FIBRILLATION NOW PRESENT Electronically Signed On 08-13-2021 14:20:41 CDT by Abbey Callahan M.D.
[2021-08-12] MEDS: SODIUM CHLORIDE 0.9% IV 500 ML 999 ML IV CONT (23:45)
[2021-08-12 23:50] VITALS: PULSE 143; O2SAT 100
[2021-08-12] MEDS: methylPREDNISolone SOD SUCC 125 MG VIAL IV PUSH (23:50)
[2021-08-13] VITALS (34 sets, daily range): BP systolic 95–144; BP diastolic 53–100; PULSE 60–154; RESP 12–33; TEMP 36.1–37.2; O2SAT 92–100; BMI 25.6
--- NOTE | 2021-08-13 | ECHO_ITS ---
Patient Info Name: Mark Whitkaer Age: 75 years : 1945 Gender: Male Ht: 67 in Wt: 163 lbs BSA: 1.88 m2 HR: 62 bpm BP: 132 / 80 mmHg Heart Rhythm: Atrial Fibrillation Exam Date: 08/13/2021 1:36 PM Exam Location: [facility] Patient Status: Inpatient Admit Date: 08/13/2021 Staff Ordering Physician: Vera Arellano PA-C Manager Security: Preston Reynoso RDCS, RT Attending Provider: Vera Arellano PA-C Referring Physician: Adan FELIX; Exam Type: CA echo doppler color flow Study Info Indications I50.9 - Heart failure, unspecified Complete two-dimensional, color flow and Doppler transthoracic echocardiogram is performed. Strain analysis performed. Summary 1. Complete two-dimensional, color flow and Doppler transthoracic echocardiogram is performed. 2. Normal left ventricular size with moderate concentric hypertrophy. Good systolic function of all segments with no segmental wall motion abnormalities. Ejection fraction visually is 55-60%. Diastolic function is indeterminate. 3. Global longitudinal strain is moderately decreased at -14% consistent with systolic dysfunction. 4. Left atrial chamber dimension is moderately enlarged. 5. There is moderate aortic valve calcification. Zdrm-fl-hejcvahz aortic stenosis with a peak velocity of 2.3 m/sec, mean gradient 12 mmHg, and aortic valve area 1.2-1.4 cm2. 6. Dilated inferior vena cava with >50% collapse upon inspiration consistent with elevated right atrial pressure, 15 mmHg. 7. There is mild aortic atherosclerosis of the aortic root. 8. Mild aortic insufficiency. 9. Atrial fibrillation. Left Ventricle Left ventricular chamber dimension is normal. Left ventricular systolic function is normal, estimated at 55-60%. There is moderately increased left ventricular wall thickness. Left ventricular septal wall motion is normal. The left ventricular diastolic function is indeterminate. Global longitudinal strain is moderately elevated at -14 %. Right Ventricle Right ventricular chamber dimension is normal. Right ventricular systolic function is normal. Left Atria Left atrial chamber dimension is moderately enlarged. Right Atria Right atrial chamber dimension is normal. Aortic Valve The aortic valve is trileaflet. There is moderate aortic valve sclerosis. There is no aortic valve stenosis. There is mild aortic valve regurgitation. There is moderate aortic valve calcification. Wyky-ff-yhzbwjik aortic stenosis with a peak velocity of 2.3 m/sec, mean gradient 12 mmHg, and aortic valve area 1.2-1.4 cm2. Pulmonic Valve The pulmonic valve is normal. There is no pulmonic valve stenosis. There is no pulmonic regurgitation. Mitral Valve The mitral valve has normal leaflets. There is no mitral valve stenosis. There is trace mitral valve regurgitation. The mitral valve annulus is mildly calcified. Tricuspid Valve The tricuspid valve leaflets are normal. There is no significant tricuspid valve stenosis. There is trace tricuspid valve regurgitation. No pulmonary hypertension, estimated pulmonary arterial systolic pressure is Empty. Pericardium/Pleural The pericardium appears normal. There is no pericardial effusion. Inferior Vena Cava Dilated inferior vena cava with >50% collapse upon inspiration consistent with elevated right atrial pressure, 15 mmHg. Aorta The aortic root size at the sinus of Valsalva is normal. The prox ascending aorta size is normal. There is mild aortic athe
[2021-08-13 00:03] LABS: Basophils Percent Auto 0.3 % (0.2-1.2); Eosinophils Absolute Auto 0.3 K/mm3 (0-0.3); Eosinophils Percent Auto 1.8 % (0-4.4); Hematocrit 39.9 % (42.0-52.0); Hemoglobin 13.4 g/dL (14.0-18.0); Immature Granulocyte Absolute 0.07 K/mm3 (0.00-0.031); Immature Granulocyte Percent A 0.5 % (0-0.5); Lymphocytes Absolute Auto 1.15 K/mm3 (0.9-3.2); Lymphocytes Percent Auto 8.3 % (18.3-44.2); Mean Corpuscular HGB Conc 33.6 g/dl (32-36); Mean Corpuscular Hemoglobin 30.3 pg (26-34); Mean Corpuscular Volume 90.3 fl (80-100); Mean Platelet Volume 11.1 fl (7.4-10.4); Monocytes Percent Auto 7.1 % (2.6-8.5); Neutrophils Absolute Auto 11.4 K/mm3 (1.3-6.7); Platelet Count Result 168 k/mm3 (150-375); Red Blood Count 4.42 M/mm3 (4.6-6.20); Red Cell Distribution Width 14.4 % (11.5-14.5); White Blood Count 13.9 K/mm3 (4.5-10.0)
[2021-08-13 00:04] LABS: Alanine Aminotransferase 24 U/L (4-50); Alkaline Phosphatase 97 U/L (38-126); Anion Gap 7 mmol/L (8-16); Aspartate Amino Transferase 40 U/L (17-59); Bilirubin,Total 0.5 mg/dL (0.2-1.3); Blood Urea Nitrogen 25 mg/dL (9-20); Calcium 8.4 mg/dL (8.4-10.2); Carbon Dioxide 27 mmol/L (22-30); Chloride 98 mmol/L (98-107); Estimated CRCL calculation 58 ml/min; Estimated Glomerular Filt Rate > 60; Glucose 160 mg/dL (65-110); Potassium 3.3 mmol/L (3.4-5.0); Sodium 132 mmol/L (137-145)
[2021-08-13] MEDS: ALBUTEROL SULFATE NEB 2.5 MG/0.5 ML INH 10 MG INHALATION (00:08)
[2021-08-13] MEDS: IPRATROPIUM BR 0.02% INH SOLN 0.5 MG/2.5 ML VIAL 1 MG INHALATION (00:09)
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
[2021-08-13 00:21] LABS: Base Excess ABG 0.3 mEq/l (+/-2.0); Carboxyhemoglobin 1.1 % THb (0-2.0); Fractional Inspired Oxygen 36 %; HCO3 ABG 25.3 mEq/l (22.0-26.0); Methemoglobin ABG 0.1 %THb (0-1.5); Oxygen Content ABG 18.8 %vol (16.0-22.0); Oxygen Saturation ABG 96.6 % (95.0-100.0); Oxyhemoglobin 95.3 % THb (90.0-100.0); PCO2 ABG 42.3 mmHg (35.0-45.0); PO2 ABG 87.6 mmHg (80.0-100.0); PO2 FiO2 Ratio Arterial Blood 2.43 %; Reduced Hemoglobin 3.5 %THb (0-5.0); pH ABG 7.395 (7.350-7.450)
[2021-08-13 00:22] LABS: Device NASAL CANNULA; Modified Allen's Test Pass; Site Drawn RIGHT RADIAL
[2021-08-13 00:31] LABS: Troponin I 0.021 ng/mL (0.000-0.034)
[2021-08-13] MEDS: dilTIAZem HCl INJ 25 MG/5 ML VIAL 10 MG IV PUSH (00:40)
[2021-08-13 00:41] LABS: NT Pro B Type Natriuretic Pept 1750 pg/mL (5-100)
[2021-08-13 00:46] LABS: INR 1.2; Prothrombin Time 14.3 Seconds (11.1-14.7)
[2021-08-13 00:47] LABS: Partial Thromboplastin Time 38.6 SECONDS (22.3-36.8)
[2021-08-13] MEDS: dilTIAZem 100 MG/100 ML 100 MG/100 ML BAG 10 MG IV CONT (00:52)
[2021-08-13 01:12] LABS: SARS-CoV-2 RNA PCR Negative
[2021-08-13] MEDS: POTASSIUM CHLORIDE 20 MEQ TABLET 40 MEQ PO (01:49)
[2021-08-13] MEDS: ENOXAPARIN 80 MG/0.8 ML SYRINGE SUB-Q (01:50)
[2021-08-13] MEDS: FUROSEMIDE INJ 40 MG/4 ML VIAL IV PUSH ×3 (01:52→20:33)
--- NOTE | 2021-08-13 03:27 | ADMGEN ---
This patient, Mark Whitaker, was admitted to IMU Room 213-01 on 08/13/21. Patient/family oriented to hospital policies and general routines including ID bracelet, bed and alarms, visiting hours, pain management, procedures, bathroom and other care routines, personal items, smoking policy, room service/diet, and visiting hours. Information on how to activate the Rapid Response Team has been discussed. Patient/Family are encouraged to report perceived risks to care and to ask questions if they do not understand what they are told or what they should do.
[2021-08-13] MEDS: dilTIAZem 100 MG/100 ML 100 MG/100 ML BAG 15 MG IV CONT ×2 (06:16→13:02)
[2021-08-13 06:35] LABS: Hematocrit 39.9 % (42.0-52.0); Hemoglobin 13.1 g/dL (14.0-18.0); Mean Corpuscular HGB Conc 32.8 g/dl (32-36); Mean Corpuscular Hemoglobin 30.7 pg (26-34); Mean Corpuscular Volume 93.4 fl (80-100); Mean Platelet Volume 10.8 fl (7.4-10.4); Platelet Count Result 141 k/mm3 (150-375); Red Blood Count 4.27 M/mm3 (4.6-6.20); Red Cell Distribution Width 14.6 % (11.5-14.5); White Blood Count 13.1 K/mm3 (4.5-10.0)
[2021-08-13 06:50] LABS: Anion Gap 10 mmol/L (8-16); Blood Urea Nitrogen 25 mg/dL (9-20); Calcium 8.2 mg/dL (8.4-10.2); Carbon Dioxide 22 mmol/L (22-30); Chloride 102 mmol/L (98-107); Estimated CRCL calculation 53 ml/min; Estimated Glomerular Filt Rate > 60; Glucose 181 mg/dL (65-110); Magnesium 2.5 mg/dL (1.6-2.3); Potassium 3.9 mmol/L (3.4-5.0); Sodium 134 mmol/L (137-145)
[2021-08-13 08:10] LABS: Glucose Point of Care 180 mg/dl (65-105)
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
[2021-08-13] MEDS: MESALAMINE 400 MG DELAYED RELEASE CAPSULE 800 MG PO ×3 (09:40→16:24)
[2021-08-13] MEDS: NEBIVOLOL HCL 5 MG TABLET PO (09:41)
[2021-08-13] MEDS: ROFLUMILAST 500 MCG TABLET PO (09:41)
[2021-08-13] MEDS: POTASSIUM CHLORIDE 20 MEQ TABLET.ER PO (09:41)
[2021-08-13] MEDS: ATORVASTATIN 20 MG TABLET PO (09:41)
[2021-08-13] MEDS: polyethylene glycoL 3350 17 GM POWD.PACK PO (09:42)
[2021-08-13] MEDS: MELOXICAM 7.5 MG TABLET 15 MG PO (09:43)
[2021-08-13] MEDS: amLODIPine BESYLATE 5 MG TABLET 10 MG PO (09:43)
[2021-08-13] MEDS: TAMSULOSIN HCL 0.4 MG CAPSULE PO (09:44)
[2021-08-13] MEDS: ASPIRIN 81 MG CHEWABLE TABLET PO (09:44)
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
[2021-08-13 10:48] LABS: Procalcitonin 0.1 ng/mL
[2021-08-13 10:57] LABS: Thyroid Stimulating Hormone Reflex 0.386 uIU/mL (0.465-4.68)
[2021-08-13 12:11] LABS: Glucose Point of Care 149 mg/dl (65-105)
[2021-08-13] MEDS: IPRATROPIUM BR 0.02% INH SOLN 0.5 MG/2.5 ML VIAL INHALATION ×3 (12:56→20:01)
[2021-08-13] MEDS: ALBUTEROL SULFATE NEB 2.5 MG/0.5 ML INH INHALATION ×3 (12:56→20:01)
[2021-08-13] MEDS: FERROUS SULFATE 324 MG TABLET PO (13:00)
[2021-08-13 13:24] LABS: Free T4 Free Thyroxine Reflex 1.16 ng/dL (0.78-2.19)
[2021-08-13 14:11] LABS: Total Triiodothyronine (T3) 0.76 NG/ML (0.97-1.69)
[2021-08-13] MEDS: METOPROLOL TARTRATE 25 MG TABLET PO ×2 (14:20→20:33)
[2021-08-13 16:41] LABS: Glucose Point of Care 115 mg/dl (65-105)
[2021-08-13 20:18] LABS: Glucose Point of Care 162 mg/dl (65-105)
[2021-08-14] VITALS (28 sets, daily range): BP systolic 99–120; BP diastolic 49–93; PULSE 64–156; RESP 14–20; TEMP 36.3–36.9; O2SAT 94–100
[2021-08-14] MEDS: ALBUTEROL SULFATE NEB 2.5 MG/0.5 ML INH INHALATION ×7 (00:01→23:14)
[2021-08-14] MEDS: IPRATROPIUM BR 0.02% INH SOLN 0.5 MG/2.5 ML VIAL INHALATION ×7 (00:02→23:14)
[2021-08-14] MEDS: METOPROLOL TARTRATE INJ 5 MG/5 ML VIAL IV PUSH (04:57)
[2021-08-14 05:01] LABS: Basophils Percent Auto 0.2 % (0.2-1.2); Eosinophils Percent Auto 0.1 % (0-4.4); Hematocrit 36.6 % (42.0-52.0); Immature Granulocyte Absolute 0.13 K/mm3 (0.00-0.031); Immature Granulocyte Percent A 0.9 % (0-0.5); Lymphocytes Absolute Auto 0.86 K/mm3 (0.9-3.2); Lymphocytes Percent Auto 5.7 % (18.3-44.2); Mean Corpuscular HGB Conc 32.8 g/dl (32-36); Mean Corpuscular Hemoglobin 30.4 pg (26-34); Mean Corpuscular Volume 92.7 fl (80-100); Mean Platelet Volume 11.4 fl (7.4-10.4); Monocytes Absolute Auto 0.9 K/mm3 (0.1-0.6); Monocytes Percent Auto 6.1 % (2.6-8.5); Platelet Count Result 174 k/mm3 (150-375); Red Blood Count 3.95 M/mm3 (4.6-6.20)
[2021-08-14 05:24] LABS: Alanine Aminotransferase 24 U/L (4-50); Albumin Level 3.7 g/dL (3.5-5.1); Alkaline Phosphatase 79 U/L (38-126); Anion Gap 7 mmol/L (8-16); Aspartate Amino Transferase 30 U/L (17-59); Bilirubin,Total 0.3 mg/dL (0.2-1.3); Blood Urea Nitrogen 33 mg/dL (9-20); Calcium 8.5 mg/dL (8.4-10.2); Carbon Dioxide 29 mmol/L (22-30); Chloride 102 mmol/L (98-107); Estimated CRCL calculation 48 ml/min; Estimated Glomerular Filt Rate > 60; Glucose 144 mg/dL (65-110); Potassium 4.4 mmol/L (3.4-5.0); Sodium 138 mmol/L (137-145)
[2021-08-14] MEDS: ENOXAPARIN 40 MG/0.4 ML SYRINGE SUB-Q (06:22)
--- NOTE | 2021-08-14 07:00 | PC.NURSE ---
Pts heart rate elevated and normal at times. Cardizem drip discontinued on day shift metoprolol ordered orally given as ordered. (5mgs PO). 2 hours after heart rate still elevated. Dr. Mota informed and stated that she will not restart the cardizem drip becasue it was discontinued by cardiology Nakul ordered metoprolol 5mg IV push. Medication given @ approximately 2am a small decrease noted in patients HR 1 hr after metoprolol was administered. Patients HR decreased from 140's to 120's but slowly began to increase again at aproximately 0700. Day shift RN made aware in report. 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
[2021-08-14 07:33] LABS: Glucose Point of Care 105 mg/dl (65-105)
[2021-08-14] MEDS: ASPIRIN 81 MG CHEWABLE TABLET PO (08:25)
[2021-08-14] MEDS: POTASSIUM CHLORIDE 20 MEQ TABLET.ER PO (08:26)
[2021-08-14] MEDS: ATORVASTATIN 20 MG TABLET PO (08:26)
[2021-08-14] MEDS: MELOXICAM 7.5 MG TABLET 15 MG PO (08:26)
[2021-08-14] MEDS: FUROSEMIDE INJ 40 MG/4 ML VIAL IV PUSH (08:27)
[2021-08-14] MEDS: MESALAMINE 400 MG DELAYED RELEASE CAPSULE 800 MG PO ×3 (08:27→17:39)
[2021-08-14] MEDS: METOPROLOL TARTRATE 25 MG TABLET PO ×2 (08:28→17:39)
[2021-08-14] MEDS: TAMSULOSIN HCL 0.4 MG CAPSULE PO (08:28)
[2021-08-14] MEDS: ROFLUMILAST 500 MCG TABLET PO (08:29)
[2021-08-14] MEDS: polyethylene glycoL 3350 17 GM POWD.PACK PO (08:29)
--- NOTE | 2021-08-14 09:36 | PM.PNCARD ---
Progress Note: A&P Assessment and Plan (1) Paroxysmal atrial fibrillation: Code(s): I48.0 - Paroxysmal atrial fibrillation Status: Acute Assessment and Plan: Patient with a history of paroxysmal atrial fibrillation, admitted with AFib RVR. Heart rate is elevated this morning 120's - 150's. Not on any rate controlling agents at home. Increase metoprolol to 25 mg q8h Will hold amlodipine for now to give us more room to titrate rate controlling agents. In the past this patient is not anticoagulated due to history of GI bleed. Sounds like he has had some falls with head trauma as well. Doesn't appear to be a good candidate for anticoagulation. (2) Acute on chronic diastolic heart failure: Code(s): I50.33 - Acute on chronic diastolic (congestive) heart failure Status: Acute Assessment and Plan: Acute on chronic diastolic heart failure, aggravated by AFib RVR and pneumonia. Will shift him back to p.o. diuretics BMP stable today. (3) Aortic stenosis: Code(s): I35.0 - Nonrheumatic aortic (valve) stenosis Status: Acute Assessment and Plan: Moderate aortic stenosis when last checked in 2019. Echo 08/13/21 showed mild-moderate with peak velocity of 2.3 m/sec, mean gradient 12mmHg, and DEANGELO 1.2 - 1.4 cm2 (4) Community acquired pneumonia: Code(s): J18.9 - Pneumonia, unspecified organism Status: Acute Assessment and Plan: Pneumonia, with COPD on home O2 Improving with IV antibiotics (5) Dementia: Code(s): F03.90 - Unspecified dementia without behavioral disturbance Status: Acute Assessment and Plan: History of strokes and dementia. Subjective Date/time seen: 08/14/21 09:36 Cardiology follow up for Afib, CHF, He feels about the same today. Complaining of a persistent cough. Denies any chest pain, palpitations, shortness of breath. He is quite tachycardic this morning but is asymptomatic. Review of Systems Constitutional: Constitutional: Reports no additional constitutional complaints and Denies fatigue Eyes: Eyes: Reports no additional eye complaints ENT: Denies dysphagia and Denies epistaxis Cardiovascular: Cardiovascular: Denies chest pain, Denies pedal edema, Denies leg edema, Denies lightheadedness, Denies palpitations, Denies dyspnea and Reports dyspnea on exertion Respiratory: Respiratory: Reports cough (Improved), Denies dyspnea and Reports dyspnea on exertion Gastrointestinal: Gastrointestinal: Denies abdominal pain and Denies dysphagia Musculoskeletal: Musculoskeletal: Reports arthralgias (Bad knees) Integumentary/Breasts: Skin/Breast: Denies rash Neurologic: Reports system reviewed and no additional complaints, except as documented and Reports confusion (Patient carries a history of dementia but denies any issues with confusion) Psychiatric: Psychiatric: Reports no additional psychiatric complaints and Reports confusion (Patient carries a history of dementia but denies any issues with confusion) Endocrine: Endocrine: Denies fatigue and Denies palpitations Exam Const: General: comfortable, no acute distress and confusion (Patient carries a history of dementia but denies any issues with confusion) Orientation/consciousness: confusion (Patient carries a history of dementia but denies any issues with confusion) HENMT: Mouth: Yes moist mucous membranes Eyes: EOM: EOMs intact bilaterally Neck: Neck: supple and no JVD Thyroid: thyroid normal Carotids: bruit Lymphatic: lymphadenopathy not noted Resp: Effort & Inspection: normal respiratory effort Auscultation: rhonchi (Coarse scattered rhonchi) Cardio: Rate: tachycardic Rhythm: abnormal rhythm irregularly irregular Heart sounds: Murmur heart sound present (3/6 MAY heard throughout the precordium radiating to the carotids) GI: Inspection: non-distended Skin: General skin exam: normal color and no rashes or lesions noted (Some excoriations n
--- NOTE | 2021-08-14 10:34 | PM.IMPN ---
Progress Note: A&P Assessment and Plan (1) Community acquired pneumonia: Code(s): J18.9 - Pneumonia, unspecified organism Status: Acute Assessment and Plan: -CXR w/ pneumonia vs edema - did [facility] the [facility], no fever here -COVID negative -BNP elevated at 1750, no LE edema, no crackles -started on IV azithromycin and rocephin -CTA chest shows likely acute pneumonia, however procalcitonin is negative. Will continue IV abx as patient is improving clinically. Could be atypical pneumonia which azithromycin should cover. -nebs q4hr scheduled (2) COPD (chronic obstructive pulmonary disease): Code(s): J44.9 - Chronic obstructive pulmonary disease, unspecified Status: Chronic Assessment and Plan: -documented history -pt denies using home oxygen but ER note states he normally wears 4L -true baseline unknown, pt AMS vs dementia and unreliable historian -continue daliresp and nebs q4 -supplemental oxygen as needed, currently at 1L NC (3) Atrial fibrillation with rapid ventricular response: Code(s): I48.91 - Unspecified atrial fibrillation Status: Acute Assessment and Plan: -I do not see a documented history, however cardiology notes indicate he does have hx of afib but is not anti coagulated due to GI bleed and frequent falls -cardiology stopped cardizem drip yesterday and switched to PO metoprolol -this morning he is in the 150s-160s consistently, cardiology aware and adjusting medications (4) Acute on chronic diastolic heart failure: Code(s): I50.33 - Acute on chronic diastolic (congestive) heart failure Status: Acute Assessment and Plan: -CXR w/ edema vs pneumonia -acute on chronic diastolic heart failure, aggravated by AFib RVR and pneumonia. -on IV lasix, management per cardiology (5) Hypertension: Code(s): I10 - Essential (primary) hypertension Status: Acute Assessment and Plan: -continue home meds -stable (6) Alzheimer disease: Code(s): G30.9 - Alzheimer's disease, unspecified; F02.80 - Dementia in other diseases classified elsewhere without behavioral disturbance Status: Chronic Assessment and Plan: -baseline unknown -attempted to speak with family but there was no answer and voicemail box not set up, will continue attempting to reach them (7) Acute metabolic encephalopathy: Code(s): G93.41 - Metabolic encephalopathy Status: Acute Assessment and Plan: -AMS vs dementia? baseline unknown -AMS due to pneumonia? -hospital delirium? -CT head no acute findings, small old right frontoparietal lobe infarction -significantly improved, currently A/Ox3 (8) Tobacco dependence: Code(s): F17.200 - Nicotine dependence, unspecified, uncomplicated Status: Acute Assessment and Plan: -nicotine patch Subjective Date/time seen: 08/14/21 10:34 Interval history: 75 yo male w/ hx of HTN, HLD, [place] x2, CVA, COPD, aortic stenosis, Alzheimers dementia, admitted for pneumonia and afib rvr. Today patient is A/Ox3, much less agitated. Still does not know president and does not know where he lives normally. He states he has been coughing for 1-2 weeks and is having sob. No cp/edema. No fevers. No N/V/D/abd pain. Review of Systems Review of Systems: All systems reviewed & are unremarkable except as noted in HPI and below Exam Narrative: General: No acute distress, non toxic, elderly Eyes: PERRL, no scleral icterus HEENT: NCAT, external ears normal, mucous membranes moist Respiratory: No respiratory distress, diffuse rhonchi, scattered expiratory wheezing Cardiovascular: irregularly irregular, rate in the 150s, + murmur Abdominal: Soft, nontender, non distended, no rebound or guarding Musculoskeletal: Moves all 4 extremities, no edema Neurological: A/Ox3, speech clear, no facial asymmet
[2021-08-14 12:01] LABS: Glucose Point of Care 89 mg/dl (65-105)
[2021-08-14] MEDS: FERROUS SULFATE 324 MG TABLET PO (13:28)
[2021-08-14] MEDS: FUROSEMIDE 40 MG TABLET PO (17:39)
[2021-08-14] MEDS: ACETAMINOPHEN 325 MG TABLET 650 MG PO (19:57)
[2021-08-14 20:27] LABS: Glucose Point of Care 98 mg/dl (65-105)
[2021-08-15] VITALS (35 sets, daily range): BP systolic 93–121; BP diastolic 47–66; PULSE 55–154; RESP 16–24; TEMP 36.2–36.9; O2SAT 94–99
[2021-08-15] MEDS: METOPROLOL TARTRATE 25 MG TABLET PO ×3 (00:41→23:47)
[2021-08-15] MEDS: MELATONIN 5 MG TABLET PO ×2 (00:41→20:03)
[2021-08-15] MEDS: ALBUTEROL SULFATE NEB 2.5 MG/0.5 ML INH INHALATION ×6 (03:12→23:55)
[2021-08-15] MEDS: IPRATROPIUM BR 0.02% INH SOLN 0.5 MG/2.5 ML VIAL INHALATION ×6 (03:12→23:56)
[2021-08-15 04:43] LABS: Basophils Percent Auto 0.5 % (0.2-1.2); Eosinophils Absolute Auto 0.1 K/mm3 (0-0.3); Eosinophils Percent Auto 1.5 % (0-4.4); Hemoglobin 11.4 g/dL (14.0-18.0); Immature Granulocyte Absolute 0.04 K/mm3 (0.00-0.031); Immature Granulocyte Percent A 0.5 % (0-0.5); Lymphocytes Absolute Auto 1.19 K/mm3 (0.9-3.2); Lymphocytes Percent Auto 16.2 % (18.3-44.2); Mean Corpuscular HGB Conc 32.6 g/dl (32-36); Mean Corpuscular Hemoglobin 30.2 pg (26-34); Mean Corpuscular Volume 92.6 fl (80-100); Mean Platelet Volume 10.8 fl (7.4-10.4); Monocytes Absolute Auto 0.7 K/mm3 (0.1-0.6); Monocytes Percent Auto 9.1 % (2.6-8.5); Neutrophils Absolute Auto 5.3 K/mm3 (1.3-6.7); Neutrophils Percent Auto 72.2 % (45.5-73.1); Platelet Count Result 179 k/mm3 (150-375); Red Blood Count 3.78 M/mm3 (4.6-6.20); Red Cell Distribution Width 15.2 % (11.5-14.5); White Blood Count 7.3 K/mm3 (4.5-10.0)
[2021-08-15 05:00] LABS: Alanine Aminotransferase 30 U/L (4-50); Albumin Level 3.4 g/dL (3.5-5.1); Alkaline Phosphatase 69 U/L (38-126); Anion Gap 5 mmol/L (8-16); Aspartate Amino Transferase 37 U/L (17-59); Bilirubin,Total 0.5 mg/dL (0.2-1.3); Blood Urea Nitrogen 42 mg/dL (9-20); Calcium 8.3 mg/dL (8.4-10.2); Carbon Dioxide 27 mmol/L (22-30); Chloride 102 mmol/L (98-107); Estimated CRCL calculation 44 ml/min; Estimated Glomerular Filt Rate 59; Glucose 89 mg/dL (65-110); Sodium 134 mmol/L (137-145)
--- NOTE | 2021-08-15 05:38 | PC.NURSE ---
Upon assessment Pt does not have a transdermal patch on any part of his body or an order in the MAR for one.
--- NOTE | 2021-08-15 06:26 | PC.NURSE ---
Pt. tachycardic in Afib HR 150 bpm. Elevated heart rate and afib is baseline for this patient while asymptomatic for the last few days but the patient began to complain of not feeling well and sob at approximately 4am. Pt. started on O2 @ 3L/min via nasal cannula. Pt. continued to complain of not feeling well [address] Song paged and informed of pts. status. Amiodarone bolus and maintenance ordered and started per protocol. Will monitor pt. closely for changes.
[2021-08-15] MEDS: AMIODARONE 150 MG/D5W 100 ML 150 MG/100 ML BAG 600 MG IV CONT (06:40)
[2021-08-15] MEDS: AMIODARONE 360 MG/D5W 200 ML 360 MG/200 ML BAG 33.33 MG IV CONT ×2 (06:53→12:27)
[2021-08-15] MEDS: FUROSEMIDE 40 MG TABLET PO ×2 (08:24→16:08)
[2021-08-15] MEDS: ATORVASTATIN 20 MG TABLET PO (08:24)
[2021-08-15] MEDS: POTASSIUM CHLORIDE 20 MEQ TABLET.ER PO (08:24)
[2021-08-15] MEDS: MELOXICAM 7.5 MG TABLET 15 MG PO (08:24)
[2021-08-15] MEDS: ASPIRIN 81 MG CHEWABLE TABLET PO (08:24)
[2021-08-15] MEDS: ROFLUMILAST 500 MCG TABLET PO (08:25)
[2021-08-15] MEDS: TAMSULOSIN HCL 0.4 MG CAPSULE PO (08:25)
[2021-08-15] MEDS: MESALAMINE 400 MG DELAYED RELEASE CAPSULE 800 MG PO ×3 (08:25→16:08)
--- NOTE | 2021-08-15 08:33 | PM.PNCARD ---
Progress Note: A&P Assessment and Plan (1) Paroxysmal atrial fibrillation: Code(s): I48.0 - Paroxysmal atrial fibrillation Status: Acute Assessment and Plan: Patient with a history of paroxysmal atrial fibrillation, admitted with AFib RVR. Heart rate increased throughout the evening and overnight. Currently asymptomatic Given amiodarone bolus and placed on amiodarone drip overnight - continue amiodarone drip for now Continue metoprolol to 25 mg q8h with holding parameters Continue to hold amlodipine - mildly hypotensive Bystolic has been discontinued In the past this patient is not anticoagulated due to history of GI bleed. Sounds like he has had some falls with head trauma as well. Doesn't appear to be a good candidate for anticoagulation. (2) Acute on chronic diastolic heart failure: Code(s): I50.33 - Acute on chronic diastolic (congestive) heart failure Status: Acute Assessment and Plan: Acute on chronic diastolic heart failure, aggravated by AFib RVR and pneumonia. Will shift him back to p.o. diuretics BMP stable today. (3) Aortic stenosis: Code(s): I35.0 - Nonrheumatic aortic (valve) stenosis Status: Acute Assessment and Plan: Moderate aortic stenosis when last checked in 2019. Echo 08/13/21 showed mild-moderate with peak velocity of 2.3 m/sec, mean gradient 12mmHg, and DEANGELO 1.2 - 1.4 cm2 (4) Community acquired pneumonia: Code(s): J18.9 - Pneumonia, unspecified organism Status: Acute Assessment and Plan: Pneumonia, with COPD on home O2 Improving with IV antibiotics (5) Dementia: Code(s): F03.90 - Unspecified dementia without behavioral disturbance Status: Acute Assessment and Plan: History of strokes and dementia. Subjective Date/time seen: 08/15/21 08:33 Cardiology follow up for Afib Required initiation of amiodarone overnight due to RVR. Rate better controlled this morning. Patient does not have any complaints as he eats his breakfast sitting on the side of the bed. He denies chest pain, shortness of breath, or palpitations. Review of Systems Constitutional: Constitutional: Reports no additional constitutional complaints and Denies fatigue Eyes: Eyes: Reports no additional eye complaints ENT: Denies dysphagia and Denies epistaxis Cardiovascular: Cardiovascular: Denies chest pain, Denies pedal edema, Denies leg edema, Denies lightheadedness, Denies palpitations, Denies dyspnea and Reports dyspnea on exertion Respiratory: Respiratory: Reports cough (Improved), Denies dyspnea and Reports dyspnea on exertion Gastrointestinal: Gastrointestinal: Denies abdominal pain and Denies dysphagia Musculoskeletal: Musculoskeletal: Reports arthralgias (Bad knees) Integumentary/Breasts: Skin/Breast: Denies rash Neurologic: Reports system reviewed and no additional complaints, except as documented and Reports confusion (Patient carries a history of dementia but denies any issues with confusion) Psychiatric: Psychiatric: Reports no additional psychiatric complaints and Reports confusion (Patient carries a history of dementia but denies any issues with confusion) Endocrine: Endocrine: Denies fatigue and Denies palpitations Exam Const: General: comfortable, no acute distress and confusion (Patient carries a history of dementia but denies any issues with confusion) Orientation/consciousness: confusion (Patient carries a history of dementia but denies any issues with confusion) HENMT: Mouth: Yes moist mucous membranes Eyes: EOM: EOMs intact bilaterally Neck: Neck: supple and no JVD Thyroid: thyroid normal Carotids: bruit Lymphatic: lymphadenopathy not noted Resp: Effort & Inspection: normal respiratory effort Auscultation: rhonchi (Coarse scattered rhonchi) Cardio: Rate: tachycardic Rhythm: abnormal rhythm irregularly irregular Heart sounds: Murmur heart sound present (3/6 MAY heard throughout t
--- NOTE | 2021-08-15 08:48 | PM.IMPN ---
Progress Note: A&P Assessment and Plan (1) Community acquired pneumonia: Code(s): J18.9 - Pneumonia, unspecified organism Status: Acute Assessment and Plan: -CXR w/ pneumonia vs edema - did have reported cough/fever at the skilled nursing, no fever here -COVID negative -BNP elevated at 1750, no LE edema, no crackles -started on IV azithromycin and rocephin -CTA chest shows likely acute pneumonia, however procalcitonin is negative. Will continue IV abx as patient is improving clinically. Could be atypical pneumonia which azithromycin should cover. -nebs q4hr scheduled (2) COPD (chronic obstructive pulmonary disease): Code(s): J44.9 - Chronic obstructive pulmonary disease, unspecified Status: Chronic Assessment and Plan: -documented history -pt denies using home oxygen but ER note states he normally wears 4L -true baseline unknown, pt AMS vs dementia and unreliable historian -continue daliresp and nebs q4 -supplemental oxygen as needed, currently on room air (3) Atrial fibrillation with rapid ventricular response: Code(s): I48.91 - Unspecified atrial fibrillation Status: Acute Assessment and Plan: -I do not see a documented history, however cardiology notes indicate he does have hx of afib but is not anti coagulated due to GI bleed and frequent falls -management per cardiology, currently on an amiodarone drip (4) Acute on chronic diastolic heart failure: Code(s): I50.33 - Acute on chronic diastolic (congestive) heart failure Status: Acute Assessment and Plan: -CXR w/ edema vs pneumonia -acute on chronic diastolic heart failure, aggravated by AFib RVR and pneumonia. -on IV lasix, management per cardiology (5) Hypertension: Code(s): I10 - Essential (primary) hypertension Status: Acute Assessment and Plan: -currently hypotensive and on amio drip, amlodipine and metoprolol held. Bystolic stopped. (6) Alzheimer disease: Code(s): G30.9 - Alzheimer's disease, unspecified; F02.80 - Dementia in other diseases classified elsewhere without behavioral disturbance Status: Chronic Assessment and Plan: -baseline unknown -attempted to speak with family but there was no answer and voicemail box not set up, will continue attempting to reach them (7) Acute metabolic encephalopathy: Code(s): G93.41 - Metabolic encephalopathy Status: Acute Assessment and Plan: -AMS vs dementia? baseline unknown -AMS due to pneumonia? -hospital delirium? -CT head no acute findings, small old right frontoparietal lobe infarction -no focal deficits -significantly improved, currently A/Ox4 (8) Tobacco dependence: Code(s): F17.200 - Nicotine dependence, unspecified, uncomplicated Status: Acute Assessment and Plan: -nicotine patch Subjective Date/time seen: 08/15/21 08:48 Interval history: 75 yo male w/ hx of HTN, HLD, [place] x2, CVA, COPD, aortic stenosis, Alzheimers dementia, admitted for pneumonia and afib rvr. Today patient is A/Ox4, very pleasant. He states he is feeling better overall and thinks his cough is improving. He denies sob and is off of oxygen currently. He denies cp, palpitations, dizziness despite a HR in the 130s still currently. No N/V/D/abd pain. Review of Systems Review of Systems: All systems reviewed & are unremarkable except as noted in HPI and below Exam Narrative: General: No acute distress, non toxic, elderly Eyes: PERRL, no scleral icterus HEENT: NCAT, external ears normal, mucous membranes moist Respiratory: No respiratory distress, diffuse rhonchi, scattered expiratory wheezing Cardiovascular: irregularly irregular, rate in the 130s, + murmur Abdominal: Soft, nontender, non distended, no rebound or guarding Musculoskeletal: Moves all 4 extremities, no edema Neurological: A/Ox4, speech clear, no fa
[2021-08-15 11:52] LABS: Glucose Point of Care 101 mg/dl (65-105)
[2021-08-15] MEDS: FERROUS SULFATE 324 MG TABLET PO (12:27)
[2021-08-15] MEDS: ACETAMINOPHEN 325 MG TABLET 650 MG PO (16:02)
[2021-08-15] MEDS: AMIODARONE 360 MG/D5W 200 ML 360 MG/200 ML BAG 16.67 MG IV CONT (18:30)
[2021-08-16] VITALS (29 sets, daily range): BP systolic 118–146; BP diastolic 56–83; PULSE 54–69; RESP 16–28; TEMP 36.3–36.7; O2SAT 95–99
[2021-08-16] MEDS: ALBUTEROL SULFATE NEB 2.5 MG/0.5 ML INH INHALATION ×6 (03:56→23:40)
[2021-08-16] MEDS: IPRATROPIUM BR 0.02% INH SOLN 0.5 MG/2.5 ML VIAL INHALATION ×6 (03:56→23:40)
[2021-08-16 04:54] LABS: Basophils Percent Auto 0.5 % (0.2-1.2); Eosinophils Absolute Auto 0.3 K/mm3 (0-0.3); Eosinophils Percent Auto 4.1 % (0-4.4); Hematocrit 37.7 % (42.0-52.0); Hemoglobin 12.4 g/dL (14.0-18.0); Immature Granulocyte Absolute 0.07 K/mm3 (0.00-0.031); Immature Granulocyte Percent A 0.9 % (0-0.5); Lymphocytes Percent Auto 18.6 % (18.3-44.2); Mean Corpuscular HGB Conc 32.9 g/dl (32-36); Mean Corpuscular Volume 91.3 fl (80-100); Mean Platelet Volume 10.8 fl (7.4-10.4); Monocytes Absolute Auto 0.8 K/mm3 (0.1-0.6); Monocytes Percent Auto 9.4 % (2.6-8.5); Neutrophils Absolute Auto 5.4 K/mm3 (1.3-6.7); Neutrophils Percent Auto 66.5 % (45.5-73.1); Platelet Count Result 194 k/mm3 (150-375); Red Blood Count 4.13 M/mm3 (4.6-6.20); Red Cell Distribution Width 15.3 % (11.5-14.5); White Blood Count 8.1 K/mm3 (4.5-10.0)
[2021-08-16 05:05] LABS: Alanine Aminotransferase 31 U/L (4-50); Albumin Level 3.7 g/dL (3.5-5.1); Alkaline Phosphatase 76 U/L (38-126); Anion Gap 6 mmol/L (8-16); Aspartate Amino Transferase 35 U/L (17-59); Bilirubin,Total 0.2 mg/dL (0.2-1.3); Blood Urea Nitrogen 37 mg/dL (9-20); Calcium 8.5 mg/dL (8.4-10.2); Carbon Dioxide 29 mmol/L (22-30); Chloride 101 mmol/L (98-107); Estimated CRCL calculation 41 ml/min; Estimated Glomerular Filt Rate 54; Glucose 86 mg/dL (65-110); Magnesium 2.3 mg/dL (1.6-2.3); Sodium 136 mmol/L (137-145)
[2021-08-16] MEDS: AMIODARONE 360 MG/D5W 200 ML 360 MG/200 ML BAG 16.67 MG IV CONT (07:38)
[2021-08-16 07:47] LABS: Glucose Point of Care 93 mg/dl (65-105)
[2021-08-16] MEDS: polyethylene glycoL 3350 17 GM POWD.PACK PO (08:21)
[2021-08-16] MEDS: MESALAMINE 400 MG DELAYED RELEASE CAPSULE 800 MG PO ×3 (08:21→16:59)
[2021-08-16] MEDS: TAMSULOSIN HCL 0.4 MG CAPSULE PO (08:22)
[2021-08-16] MEDS: ROFLUMILAST 500 MCG TABLET PO (08:22)
[2021-08-16] MEDS: METOPROLOL TARTRATE 25 MG TABLET PO ×2 (08:22→20:12)
[2021-08-16] MEDS: ATORVASTATIN 20 MG TABLET PO (08:23)
[2021-08-16] MEDS: ASPIRIN 81 MG CHEWABLE TABLET PO (08:23)
[2021-08-16] MEDS: FUROSEMIDE 40 MG TABLET PO ×2 (08:23→17:00)
[2021-08-16] MEDS: MELOXICAM 7.5 MG TABLET 15 MG PO (08:23)
[2021-08-16] MEDS: POTASSIUM CHLORIDE 20 MEQ TABLET.ER PO (08:23)
--- NOTE | 2021-08-16 08:33 | PM.IMPN ---
Progress Note: A&P Assessment and Plan (1) Community acquired pneumonia: Code(s): J18.9 - Pneumonia, unspecified organism Status: Acute Assessment and Plan: -CXR w/ pneumonia vs edema - [facility], no fever here -COVID negative -BNP elevated at 1750, no LE edema, no crackles -started on IV azithromycin and rocephin -CTA chest shows likely acute pneumonia, however procalcitonin is negative. Will continue IV abx as patient is improving clinically. Could be atypical pneumonia which azithromycin should cover. -nebs q4hr scheduled (2) COPD (chronic obstructive pulmonary disease): Code(s): J44.9 - Chronic obstructive pulmonary disease, unspecified Status: Chronic Assessment and Plan: -documented history -pt denies using home oxygen but ER note states he normally wears 4L -true baseline unknown, pt AMS vs dementia and unreliable historian -continue daliresp and nebs q4 -supplemental oxygen as needed, currently on room air x 2 days (3) Atrial fibrillation with rapid ventricular response: Code(s): I48.91 - Unspecified atrial fibrillation Status: Acute Assessment and Plan: -I do not see a documented history, however cardiology notes indicate he does have hx of afib but is not anti coagulated due to GI bleed and frequent falls -management per cardiology, currently on an amiodarone drip (4) Acute on chronic diastolic heart failure: Code(s): I50.33 - Acute on chronic diastolic (congestive) heart failure Status: Acute Assessment and Plan: -CXR w/ edema vs pneumonia -acute on chronic diastolic heart failure, aggravated by AFib RVR and pneumonia. -switched back to PO lasix, management per cardiology (5) Hypertension: Code(s): I10 - Essential (primary) hypertension Status: Acute Assessment and Plan: -currently hypotensive and on amio drip, amlodipine and metoprolol held. Bystolic stopped. (6) Alzheimer disease: Code(s): G30.9 - Alzheimer's disease, unspecified; F02.80 - Dementia in other diseases classified elsewhere without behavioral disturbance Status: Chronic Assessment and Plan: -baseline unknown -attempted to speak with family but there was no answer and voicemail box not set up, will continue attempting to reach them (7) Acute metabolic encephalopathy: Code(s): G93.41 - Metabolic encephalopathy Status: Acute Assessment and Plan: -AMS vs dementia? baseline unknown -AMS due to pneumonia? -hospital delirium? -CT head no acute findings, small old right frontoparietal lobe infarction -no focal deficits -significantly improved, currently A/Ox4 (8) Tobacco dependence: Code(s): F17.200 - Nicotine dependence, unspecified, uncomplicated Status: Acute Assessment and Plan: -nicotine patch Subjective Date/time seen: 08/16/21 08:33 Interval history: 75 yo male w/ hx of HTN, HLD, [place] x2, CVA, COPD, aortic stenosis, Alzheimers dementia, admitted for pneumonia and afib rvr. Today patient is A/Ox4, very pleasant. He states he is feeling better overall and thinks his cough is improving. He denies sob and is off of oxygen currently. He denies cp, palpitations, dizziness. HR in the 60s currently. No N/V/D/abd pain. Review of Systems Review of Systems: All systems reviewed & are unremarkable except as noted in HPI and below Exam Narrative: General: No acute distress, non toxic, elderly Eyes: PERRL, no scleral icterus HEENT: NCAT, external ears normal, mucous membranes moist Respiratory: No respiratory distress, diffuse rhonchi, scattered expiratory wheezing Cardiovascular: irregular rhythm with rate in the 60s, + murmur Abdominal: Soft, nontender, non distended, no rebound or guarding Musculoskeletal: Moves all 4 extremities, no edema Neurological: A/Ox4, speech clear, n
--- NOTE | 2021-08-16 10:16 | ECG_ITS ---
Measurements Intervals [place] Rate: 58 P: 55 [place]: 198 QRS: -53 QRSD: 166 T: 5 QT: 489 QTc: 483 Interpretive Statements SINUS BRADYCARDIA RIGHT BUNDLE BRANCH BLOCK [120+ ms QRS DURATION, UPRIGHT V1, 40+ ms S IN I/aVL/V4/V5/V6] LEFT ANTERIOR FASCICULAR BLOCK [QRS AXIS <= -45, QR IN I, RS IN II] COMPARED TO ECG 08/12/2021 23:34:33 SINUS BRADYCARDIA NOW PRESENT Electronically Signed On 08-17-2021 6:52:47 CDT by Abbey Callahan M.D.
[2021-08-16 11:52] LABS: Glucose Point of Care 94 mg/dl (65-105)
[2021-08-16] MEDS: FERROUS SULFATE 324 MG TABLET PO (12:02)
--- NOTE | 2021-08-16 13:23 | PM.PNCARD ---
Progress Note: A&P Additional Plan Assessment Paroxysmal AF, converted to SR today HR 60s Not on OAC because of Hx of bleeding and falls Acute on chronic diastolic heart failure, currently euvolemic Moderate Dementia Plan Change amiodarone to 400 mg daily and d/c IV amiodarone Change metoprolol to 25 mg BID Cont oral diuretics f/u in clinic, cardiology will sign off and please call if needed Subjective Date/time seen: 08/16/21 13:23 Interval history: no acute events converted to SR at 5 Pm yesterday feels well and wanted to go home Review of Systems Review of Systems: All systems reviewed & are unremarkable except as noted in HPI and below Exam Const: General: comfortable and no acute distress Other: Able to lie flat Neck: Neck: supple and no JVD Carotids: no bruits Resp: Auscultation: clear to auscultation bilaterally and lung sounds not diminished Other: No chest wall tenderness Cardio: Rate: regular rate Rhythm: regular rhythm Heart sounds: no gallops, no murmurs and no rubs GI: GI Palp: Yes Soft to palpation and No Tenderness to palpation present (GI) Auscultation: normal bowel sounds Skin: General skin exam: normal color, rashes and/or lesions noted and no erythema Other: Warm Neuro: Cranial nerves: Yes Equal, round and reactive pupils present Speech: normal speech Other: No obvious focal deficit or facial asymmetry Extrem: General: no edema Other: Normal capillary refills Intact distal pulses. Objective Data Vital Signs Vital Signs: Vital Signs - 24 hr 08/15/21 14:00 08/15/21 15:38 08/15/21 16:00 Temperature 36.4 C L Pulse Rate 127 H 123 H 120 H Respiratory Rate 20 Blood Pressure 121/47 L Pulse Oximetry 98 08/15/21 16:45 08/15/21 16:52 08/15/21 17:55 Temperature Pulse Rate 98 100 64 Respiratory Rate 18 18 Blood Pressure Pulse Oximetry 08/15/21 19:41 08/15/21 19:55 08/15/21 20:00 Temperature 36.9 C Pulse Rate 63 60 61 Respiratory Rate 18 18 Blood Pressure 116/55 L Pulse Oximetry 99 08/15/21 20:04 08/15/21 20:08 08/15/21 22:00 Temperature Pulse Rate 61 73 Respiratory Rate 18 Blood Pressure Pulse Oximetry 97 08/15/21 23:03 08/15/21 23:47 08/15/21 23:56 Temperature 36.4 C Pulse Rate 66 66 66 Respiratory Rate 16 18 Blood Pressure 107/56 L Pulse Oximetry 96 08/16/21 00:00 08/16/21 00:04 08/16/21 02:00 Temperature Pulse Rate 64 67 56 L Respiratory Rate 18 Blood Pressure Pulse Oximetry 08/16/21 03:56 08/16/21 04:00 08/16/21 04:07 Temperature 36.6 C Pulse Rate 60 68 64 Respiratory Rate 18 18 18 Blood Pressure 118/61 Pulse Oximetry 99 08/16/21 06:00 08/16/21 07:38 08/16/21 08:00 Temperature 36.3 C L Pulse Rate 67 64 63 Respiratory Rate 16 Blood Pressure 128/57 L Pulse Oximetry 96 08/16/21 08:07 08/16/21 08:09 08/16/21 08:16 Temperature Pulse Rate 68 62 Respiratory Rate 18 18 Blood Pressure Pulse Oximetry 97 08/16/21 08:22 08/16/21 10:00 08/16/21 12:00 Temperature 36.7 C Pulse Rate 64 62 57 L Respiratory Rate 20 Blood Pressure 119/83 Pulse Oximetry 96 08/16/21 12:22 Temperature Pulse Rate 62 Respiratory Rate 18 Blood Pressure Pulse Oximetry Intake/Output Intake/Output: Intake & Output 08/13/21 08/14/21 08/15/21 08/16/21 23:59 23:59 23:59 23:59 Intake Total 2320 1120 2060 926 Output Total 300 695 [address] [place] [address] 1110 -016 Meds/Results Medications: Active Medications Generic Name Dose Route Start Last Admin Trade Name Freq PRN Reason Stop Dose Admin Acetaminophen 650 mg 08/13/21 03:55 08/15/21 16:02 Acetaminophen 325 Mg Tablet PO 650 mg Q6H PRN Administration Fever Or Pain 1-3 Hydrocodone Bitart/Acetaminophen 0.5 tab 08/13/21 03:55 Hydrocodone/Acetaminophen (*Crx) 5-325 Mg Tablet PO DAILY PRN Pain 7-10 Albuterol 2.5 mg 08/13/21 12:00 04
[2021-08-16] MEDS: ACETAMINOPHEN 325 MG TABLET 650 MG PO (14:39)
[2021-08-16] MEDS: AMIODARONE HCL 200 MG TABLET 400 MG PO (14:39)
[2021-08-16 16:39] LABS: Glucose Point of Care 114 mg/dl (65-105)
[2021-08-16] MEDS: MELATONIN 5 MG TABLET PO (20:12)
[2021-08-17] VITALS (15 sets, daily range): BP systolic 118–137; BP diastolic 52–79; PULSE 61–71; RESP 18–24; TEMP 36.5–36.7; O2SAT 94–97
[2021-08-17] MEDS: ALBUTEROL SULFATE NEB 2.5 MG/0.5 ML INH INHALATION ×2 (03:04→07:54)
[2021-08-17] MEDS: IPRATROPIUM BR 0.02% INH SOLN 0.5 MG/2.5 ML VIAL INHALATION ×2 (03:04→07:54)
[2021-08-17 04:47] LABS: Basophils Absolute Auto 0.1 K/mm3 (0.0-0.1); Basophils Percent Auto 0.6 % (0.2-1.2); Eosinophils Absolute Auto 0.4 K/mm3 (0-0.3); Eosinophils Percent Auto 4.7 % (0-4.4); Hematocrit 37.5 % (42.0-52.0); Hemoglobin 12.9 g/dL (14.0-18.0); Immature Granulocyte Absolute 0.06 K/mm3 (0.00-0.031); Immature Granulocyte Percent A 0.7 % (0-0.5); Lymphocytes Percent Auto 14.5 % (18.3-44.2); Mean Corpuscular HGB Conc 34.4 g/dl (32-36); Mean Corpuscular Hemoglobin 30.7 pg (26-34); Mean Corpuscular Volume 89.3 fl (80-100); Mean Platelet Volume 10.3 fl (7.4-10.4); Monocytes Absolute Auto 0.7 K/mm3 (0.1-0.6); Monocytes Percent Auto 8.7 % (2.6-8.5); Neutrophils Absolute Auto 5.9 K/mm3 (1.3-6.7); Neutrophils Percent Auto 70.8 % (45.5-73.1); Platelet Count Result 194 k/mm3 (150-375); Red Cell Distribution Width 15.1 % (11.5-14.5); White Blood Count 8.3 K/mm3 (4.5-10.0)
[2021-08-17 05:05] LABS: Anion Gap 6 mmol/L (8-16); Blood Urea Nitrogen 27 mg/dL (9-20); Calcium 8.5 mg/dL (8.4-10.2); Carbon Dioxide 32 mmol/L (22-30); Chloride 100 mmol/L (98-107); Estimated CRCL calculation 48 ml/min; Estimated Glomerular Filt Rate > 60; Glucose 89 mg/dL (65-110); Potassium 3.9 mmol/L (3.4-5.0); Sodium 138 mmol/L (137-145)
--- NOTE | 2021-08-17 07:26 | PM.DS ---
DS: Admitting Diagnosis Discharge Date 08/17/2021 Admitting Diagnosis 1) community-acquired pneumonia 2) COPD 3) AFib RVR 4) congestive heart failure 5) hypertension 6) Alzheimer's disease 7) acute metabolic encephalopathy 8) tobacco dependence DS: Discharge Diagnosis Discharge Diagnosis (1) Community acquired pneumonia: Code(s): J18.9 - Pneumonia, unspecified organism Status: Acute Assessment and Plan: -CXR w/ pneumonia vs edema - did have reported cough/fever at the [place] [facility], no fever here -COVID negative -BNP elevated at 1750, no LE edema, no crackles -started on IV azithromycin and rocephin -CTA chest shows likely acute pneumonia, however procalcitonin is negative. Will continue IV abx as patient is improving clinically. Could be atypical pneumonia which azithromycin should cover. -nebs q4hr scheduled - 08/17/2021: Date of discharge: Patient has completed 4 days of IV antibiotics. Will discharge home on Augmentin 875 mg p.o. b.i.d. for 10 days. (2) COPD (chronic obstructive pulmonary disease): Code(s): J44.9 - Chronic obstructive pulmonary disease, unspecified Status: Chronic Assessment and Plan: -documented history -pt denies using home oxygen but ER note states he normally wears 4L -true baseline unknown, pt AMS vs dementia and unreliable historian -continue daliresp and nebs q4 -supplemental oxygen as needed, currently on room air x 2 days - 08/17/2021: Date of discharge: Oxygen as needed. (3) Atrial fibrillation with rapid ventricular response: Code(s): I48.91 - Unspecified atrial fibrillation Status: Acute Assessment and Plan: -I do not see a documented history, however cardiology notes indicate he does have hx of afib but is not anti coagulated due to GI bleed and frequent falls -management per cardiology, currently on an amiodarone drip - 08/17/2021: Date of discharge: Stable on oral Amiodarone. Drip was discontinued yesterday. Will continue po at discharge. (4) Acute on chronic diastolic heart failure: Code(s): I50.33 - Acute on chronic diastolic (congestive) heart failure Status: Acute Assessment and Plan: -CXR w/ edema vs pneumonia -acute on chronic diastolic heart failure, aggravated by AFib RVR and pneumonia. -switched back to PO lasix, management per cardiology - 08/17/21: Date of discharge: Continue Lasix per Cardiology, as they have signed off of the case. (5) Hypertension: Code(s): I10 - Essential (primary) hypertension Status: Acute Assessment and Plan: -currently hypotensive and on amio drip, amlodipine and metoprolol held. Bystolic stopped. - 08/17/21: Date of discharge: Vital signs stable. Will discontinue Bystolic on discharge. (6) Alzheimer disease: Code(s): G30.9 - Alzheimer's disease, unspecified; F02.80 - Dementia in other diseases classified elsewhere without behavioral disturbance Status: Chronic Assessment and Plan: -baseline unknown -attempted to speak with family but there was no answer and voicemail box not set up, will continue attempting to reach them - 08/17/2021: Date of discharge: At baseline. (7) Acute metabolic encephalopathy: Code(s): G93.41 - Metabolic encephalopathy Status: Acute Assessment and Plan: -AMS vs dementia? baseline unknown -AMS due to pneumonia? -hospital delirium? -CT head no acute findings, small old right frontoparietal lobe infarction -no focal deficits -significantly improved, currently A/Ox4 - 08/17/2021: Date of discharge: Patient has returned to baseline status. (8) Tobacco dependence: Code(s): F17.200 - Nicotine dependence, unspecified, uncomplicated Status: Acute Assessment and Plan: -nicotine patch - 08/17/2021: Date of discharge: Continue. DS: Summary Hospital Course Reason for hospitalization: Cough Hospital Course: This ple
[2021-08-17] MEDS: ATORVASTATIN 20 MG TABLET PO (08:05)
[2021-08-17] MEDS: ROFLUMILAST 500 MCG TABLET PO (08:05)
[2021-08-17] MEDS: POTASSIUM CHLORIDE 20 MEQ TABLET.ER PO (08:05)
[2021-08-17] MEDS: METOPROLOL TARTRATE 25 MG TABLET PO (08:05)
[2021-08-17] MEDS: FUROSEMIDE 40 MG TABLET PO (08:05)
[2021-08-17] MEDS: ASPIRIN 81 MG CHEWABLE TABLET PO (08:05)
[2021-08-17] MEDS: MESALAMINE 400 MG DELAYED RELEASE CAPSULE 800 MG PO (08:05)
[2021-08-17] MEDS: AMIODARONE HCL 200 MG TABLET 400 MG PO (08:06)
[2021-08-17] MEDS: MELOXICAM 7.5 MG TABLET 15 MG PO (08:06)
[2021-08-17] MEDS: TAMSULOSIN HCL 0.4 MG CAPSULE PO (08:06)
[2021-08-17] MEDS: polyethylene glycoL 3350 17 GM POWD.PACK PO (08:06)
[2021-08-17 10:35] LABS: EDCOVIDSCREEN Negative (Negative)
--- NOTE | 2021-08-17 11:09 | PC.NURSE ---
Addendum entered by Angelica Bunch RN 08/17/21 14:32: All discharge information faxed to receiving facility at 1120. Original Note: Call to [facility] at 1052 by this RN. Report given to SHIVAM Lilly with facility. Patient to transport back to facility by ambulance.
== END 2021-08-17 12:20 | DRG 193 ==
LOC: ANHED 08-13 00:29 → ANHIMU 08-13 02:34
PROVIDERS: Physician Assistant; Admitting Provider Internal Medicine; Emergency Provider General Practice; Visit Provider Nurse Practitioner Adult Health
DX: J18.9 Pneumonia, unspecified organism (principal); G93.41 Metabolic encephalopathy; I50.33 Acute on chronic diastolic (congestive) heart failure; J44.0 Chronic obstructive pulmonary disease with (acute) lower respiratory infection; K50.90 Crohn's disease, unspecified, without complications; I45.2 Bifascicular block; Z20.822 Contact with and (suspected) exposure to COVID-19; I11.0 Hypertensive heart disease with heart failure; I48.0 Paroxysmal atrial fibrillation; I35.0 Nonrheumatic aortic (valve) stenosis; G30.9 Alzheimer's disease, unspecified; F02.80 Dementia in other diseases classified elsewhere, unspecified severity, without behavioral disturbance, psychotic disturbance, mood disturbance, and anxiety; E87.6 Hypokalemia; E78.5 Hyperlipidemia, unspecified; F17.210 Nicotine dependence, cigarettes, uncomplicated; I25.2 Old myocardial infarction; Z79.82 Long term (current) use of aspirin; Z79.899 Other long term (current) drug therapy; Z86.73 Personal history of transient ischemic attack (TIA), and cerebral infarction without residual deficits; Z88.2 Allergy status to sulfonamides; Z91.81 History of falling; Z99.81 Dependence on supplemental oxygen
CPT/HCPCS: 36415; 36600; 70450; 71045; 71275; 80048; 80053; 82375; 82805; 82948; 83050; 83735; 83880; 84145; 84439; 84443; 84480; 84484; 85025; 85027; 85610; 85730; 87040; 87426; 93005; 93306; 94002; 94640; 96361; 96365; 96366; 96367; 96368; 96372; 96375; 96376; 99285; A9270; C9803; G0378; J0282; J0456; J0696; J1650; J1940; J2930; J7040; Q9967; U0003; U0005

== ENCOUNTER 2023-01-18 16:46 | Inpatient (IN) | payer MEDICARE, MEDICAID, SELFPAY ==
[2023-01-18] VITALS (17 sets, daily range): BP systolic 125–152; BP diastolic 55–105; PULSE 45–51; RESP 12–26; TEMP 36.6; O2SAT 94–99; BMI 22.0
--- NOTE | ~2023-01-18 | XR_ITS ---
EXAMINATION: XR chest 2V Exam Date/Time: 01/18/2023 17:35 CDT HISTORY: CP WAS HAVING CHEST PAIN PRIOR TO ARRIVAL BUT HAS Comparison: 08/12/2021. RESULT: Lines, tubes, and devices: None. Lungs and pleura: Mild diffuse reticular opacities. Senescent changes. Right medial basal subsegment al opacity, partially obscures the right heart border Cardiomediastinal silhouette: Stable. Other: No acute osseous or upper abdominal finding. IMPRESSION: Subsegmental right medial basal atelectasis/consolidation. Mild interstitial edema. Reviewed, dictated and finalized at location K. IMPRESSION: Subsegmental right medial basal atelectasis/consolidation. Mild interstitial ed letty.
--- NOTE | ~2023-01-18 | CT_ITS ---
EXAMINATION: CT brain wo con DATE: 01/18/2023 20:01 INDICATION: headach . TECHNIQUE: Computed tomography (CT) of the head was performed without intravenous contrast. The mA wa s adjusted according to patient size. Iterative reconstruction technique was employed. The dose-lengt h product was 681.00 mGy-cm. COMPARISON: 08/13/2021. FINDINGS: No acute intracranial hemorrhage or extra-axial fluid collection. No hydrocephalus, mass, or herniation. No acute ischemic infarct. Unremarkable dural venous sinus attenuation. No acute osseous abnormality. Paranasal sinus mucosal thickening. The mastoid air cells are clear. Moderate atrophy and mild chronic white matter change. Atherosclerotic intracranial calcification. Ri ght frontoparietal encephalomalacia. IMPRESSION: No acute intracranial process. Reviewed, dictated and finalized at location K.
--- NOTE | 2023-01-18 16:48 | ECG_ITS ---
Measurements Intervals [place] Rate: 41 P: MD: 0 QRS: -73 QRSD: 161 T: 18 QT: 540 QTc: 450 Interpretive Statements SINUS BRADYCARDIA BORDERLINE AV CONDUCTION DELAY RIGHT BUNDLE BRANCH BLOCK LEFT ANTERIOR FASCICULAR BLOCK BASELINE ARTIFACT- I, II, III, AVR, AVL, AVF, V1-V6 ABNORMAL ECG COMPARED TO ECG 08/16/2021 10:31:31 HEART RATE HAS DECREASED Electronically Signed On 01-18-2023 17:53:44 CDT by Jhonny Beck D.O.
--- NOTE | 2023-01-18 19:39 | ED.CHESTPAIN ---
HPI - Chest Pain General Chief Complaint: Chest Pain Stated Complaint: chest pain Time Seen by Provider: 01/18/23 19:34 Source: patient and EMS Mode of arrival: EMS Limitations: no limitations History of Present Illness HPI narrative: Patient is 77 years old white male came from assisted with chest pain. Patient is telling me that he does not know why he is here,, history me that he have short-term memory and does not remember what was his complaint. Currently complaining of the IV access and headache. he denies any chest pain, shortness of breath or back pain. Patient is oriented to his name and age and the year only. He is telling me that something bothering him but he does not remember because he been having short memory. According to the assisted nurse who is telling me that patient started having chest pain at 2:30 PM today, at 415 received 3 nitroglycerin without any improvement. He had history of coronary stents unknown last time. Also he been treated for memory issue for the last 6 months. But today is worse. And his bradycardia today consider unusual. History of COPD, atrial fibrillation, congestive heart failure, hypertension, Alzheimer disease, metabolic encephalopathy, tobacco dependence Related Data Home Medications Medication Instructions Recorded Confirmed acetaminophen 325 mg capsule 650 mg PO Q6H PRN Pain (Scale 08/27/19 01/19/23 Score 1-3) atorvastatin 20 mg tablet 20 mg PO DAILY 08/27/19 01/19/23 cholecalciferol (vitamin D3) 50,000 units PO MONTHLY 08/27/19 01/19/23 docusate sodium 100 mg capsule 100 mg PO DAILY PRN Constipation 08/27/19 01/19/23 hydrocodone 5 mg-acetaminophen 325 1 tablet PO QHS 08/27/19 01/19/23 mg tablet roflumilast 500 mcg tablet 500 mcg PO DAILY 08/27/19 01/19/23 (Daliresp) sodium chloride 0.65 % nasal spray 2 spray intranasal QID PRN Nasal 08/27/19 01/19/23 aerosol (Saline Nasal) Congestion tamsulosin 0.4 mg capsule 0.4 mg PO DAILY 08/27/19 01/19/23 albuterol sulfate 90 mcg/actuation 2 puff inhalation Q6H PRN 08/13/21 01/19/23 aerosol inhaler (ProAir HFA) Shortness Of Breath Or Wheezing ibuprofen 200 mg tablet 600 mg PO TID PRN Pain (Scale 08/13/21 01/19/23 Score 4-6) multivit with minerals-iron 18 1 tablet PO DAILY 08/13/21 01/19/23 mg-folic ac 400 mcg-vit K 25 mcg tablet (Adults Multivitamin) polyethylene glycol 3350 17 gram 17 g PO DAILY 08/13/21 01/19/23 oral powder packet (Miralax) amiodarone 200 mg tablet (Pacerone) 400 mg PO DAILY 01/19/23 01/19/23 aspirin 81 mg chewable tablet 81 mg PO DAILY 01/19/23 01/19/23 (Children's Aspirin) budesonide-formoterol HFA 80 1 puff inhalation BID 01/19/23 01/19/23 mcg-4.5 mcg/actuation aerosol inhaler (Symbicort) bupropion HCl 150 mg tablet,12 hr 75 mg PO QAM 01/19/23 01/19/23 sustained-release (Wellbutrin SR) diclofenac sodium 1 % topical gel 1 ea topical BID 01/19/23 01/19/23 ferrous sulfate 325 mg (65 mg 324 mg PO DAILY 01/19/23 01/19/23 iron) tablet guaifenesin 100 mg/5 mL oral syrup 100 mg PO QID PRN Cough 01/19/23 01/19/23 guaifenesin 600 mg tablet, 600 mg PO BID 01/19/23 01/19/23 extended release 12 hr (Mucinex) lactulose 20 gram/30 mL oral 30 g PO QID PRN Constipation 01/19/23 01/19/23 solution loperamide 2 mg tablet (Imodium 2 mg PO BID PRN Diarrhea 01/19/23 01/19/23 A-D) loratadine 10 mg tablet 10 mg PO DAILY PRN running nose 01/19/23 01/19/23 metoprolol tartrate 25 mg tablet 12.5 mg PO Q12HR 01/19/23 01/19/23 multivit with minerals-iron 18 1 tablet PO DAILY 01/19/23 01/19/23 mg-folic ac 400 mcg-vit K 25 mcg tablet (Adults Multivitamin) potassium chloride 20 mEq 20 meq PO DAILY 01/19/23 01/19/23 tablet,extended release (K-Tab) Allergies Allergy/AdvReac Type Severity Reaction Status Date / Time Sulfa (Sulfonamide Allergy Unknown Unknown Verified 01/18/23 17:12 Antibiotics) Review of Systems Review of Systems: All systems reviewed & are unremarkable except as note
[2023-01-18 20:42] LABS: Basophils Absolute Auto 0.1 K/mm3 (0.0-0.1); Basophils Percent Auto 0.8 % (0.2-1.2); Eosinophils Absolute Auto 0.2 K/mm3 (0-0.3); Eosinophils Percent Auto 2.9 % (0-4.4); Hematocrit 37.7 % (42.0-52.0); Hemoglobin 12.1 g/dL (14.0-18.0); Immature Granulocyte Absolute 0.04 K/mm3 (0.00-0.031); Immature Granulocyte Percent A 0.6 % (0-0.5); Lymphocytes Absolute Auto 1.07 K/mm3 (0.9-3.2); Lymphocytes Percent Auto 14.9 % (18.3-44.2); Mean Corpuscular HGB Conc 32.1 g/dl (32-36); Mean Corpuscular Hemoglobin 30.9 pg (26-34); Mean Corpuscular Volume 96.2 fl (80-100); Mean Platelet Volume 10.9 fl (7.4-10.4); Monocytes Absolute Auto 0.7 K/mm3 (0.1-0.6); Monocytes Percent Auto 9.2 % (2.6-8.5); Neutrophils Absolute Auto 5.2 K/mm3 (1.3-6.7); Neutrophils Percent Auto 71.6 % (45.5-73.1); Platelet Count Result 190 k/mm3 (150-375); Red Blood Count 3.92 M/mm3 (4.6-6.20); Red Cell Distribution Width 16.5 % (11.5-14.5); White Blood Count 7.2 K/mm3 (4.5-10.0)
[2023-01-18 20:56] LABS: Alanine Aminotransferase 30 U/L (6-50); Alkaline Phosphatase 98 U/L (38-126); Anion Gap 7 mmol/L (8-16); Aspartate Amino Transferase 40 U/L (17-59); Bilirubin,Total 0.6 mg/dL (0.2-1.3); Blood Urea Nitrogen 33 mg/dL (9-20); Calcium 8.8 mg/dL (8.4-10.2); Carbon Dioxide 26 mmol/L (22-30); Chloride 100 mmol/L (98-107); Estimated CRCL calculation 48 ml/min; Estimated Glomerular Filt Rate > 60; Glucose 84 mg/dL (65-110); Lipase 72 U/L (23-300); Potassium 4.2 mmol/L (3.4-5.0); Sodium 133 mmol/L (137-145)
[2023-01-18 20:58] LABS: Prothrombin Time 13.9 Seconds (11.1-14.7)
[2023-01-18 20:59] LABS: Partial Thromboplastin Time 33.9 SECONDS (22.3-36.8)
[2023-01-18 21:08] LABS: Troponin I 0.015 ng/mL (0.000-0.034)
[2023-01-18 21:19] LABS: Appearance Urine Turbid (Clear); Bacteria Urine 4+ /hpf; Bilirubin Urine Negative (Negative); Blood Urine Negative (Negative); Color Urine Yellow (Yellow); Glucose Urine UA Negative (Negative); Ketones Urine Negative (Negative); Leukocyte Esterase Ur 3+ LEU/UL (Negative); Nitrate Urine Positive (Negative); Protein Urine Trace mg/dL (Negative); RBC Urine 0-2 /hpf (0-2); Specific Grav Ur 1.015 (1.001-1.035); Squamous Epithelial Cell Urine None seen /hpf (Few); Urobilinogen Urine 0.2 mg/dL (<2.0); WBC Urine 21-50 /hpf; pH Urine >=9.0 (5.0-9.0)
[2023-01-18 21:21] LABS: Add Urine Microscopic? YES
[2023-01-18] MEDS: ASPIRIN 325 MG TABLET PO (21:41)
[2023-01-18] MEDS: SODIUM CHLORIDE 0.9% IV 1,000 ML 125 ML IV CONT (22:17)
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
[2023-01-19] VITALS (18 sets, daily range): BP systolic 116–145; BP diastolic 58–95; PULSE 47–62; RESP 16–20; TEMP 36.4–36.8; O2SAT 94–100; BMI 25.0
--- NOTE | 2023-01-19 00:06 | ADMGEN ---
This patient, Mark Whitaker, was admitted to IMU Room 207-01. Patient/family oriented to hospital policies and general routines including ID bracelet, bed and alarms, visiting hours, pain management, procedures, bathroom and other care routines, personal items, smoking policy, room service/diet, and visiting hours. Information on how to activate the Rapid Response Team has been discussed. Patient/Family are encouraged to report perceived risks to care and to ask questions if they do not understand what they are told or what they should do.
[2023-01-19 01:45] LABS: Troponin I 0.013 ng/mL (0.000-0.034)
[2023-01-19] MEDS: ALBUTEROL SULFATE NEB 2.5 MG/3 ML INH INHALATION ×4 (02:30→19:54)
[2023-01-19] MEDS: IPRATROPIUM BR 0.02% INH SOLN 0.5 MG/2.5 ML VIAL INHALATION ×4 (02:30→19:54)
[2023-01-19 05:19] LABS: Troponin I 0.016 ng/mL (0.000-0.034)
[2023-01-19 08:03] LABS: Glucose Point of Care 93 mg/dl (65-105)
--- NOTE | 2023-01-19 09:34 | PM.IMPN ---
Progress Note: A&P Assessment and Plan (1) Chest pain: Qualifiers: Chest pain type: unspecified Qualified Code(s): R07.9 - Chest pain, unspecified Code(s): R07.9 - Chest pain, unspecified Status: Acute Assessment and Plan: Substernal, achy chest pain reported per patient. No chest pain currently. IMU admisison with trending trops. Repeat troponin now and the likely downgrade to med-tele bed (2) Urinary tract infection: Qualifiers: Hematuria presence: without hematuria Urinary tract infection type: site unspecified Qualified Code(s): N39.0 - Urinary tract infection, site not specified Code(s): N39.0 - Urinary tract infection, site not specified Status: Acute Assessment and Plan: With urinary frequency and urgency U/A + nitrate, +3 leuks, WBC 21-5, +4 Bacteria Started on Rocephin NS 125 ml per hour Urine culture pending (3) Paroxysmal atrial fibrillation: Code(s): I48.0 - Paroxysmal atrial fibrillation Status: Acute Assessment and Plan: Not on anticoagulation due to risk of bleeding with high fall recurrence. Tele SR-SB (4) BPH (benign prostatic hyperplasia): Qualifiers: Lower urinary tract symptom detail: urinary frequency Lower urinary tract symptom presence: symptoms present Qualified Code(s): N40.1 - Benign prostatic hyperplasia with lower urinary tract symptoms; R35.0 - Frequency of micturition Code(s): N40.0 - Benign prostatic hyperplasia without lower urinary tract symptoms Status: Acute Assessment and Plan: Will continue patient's home Flomax. Urinary retention with inability to empty. Coude catheter was placed with much difficulty. May need to d/c with chatterjee and urology consult outpatient. (5) Hypertension: Qualifiers: Hypertension type: primary hypertension Qualified Code(s): I10 - Essential (primary) hypertension Code(s): I10 - Essential (primary) hypertension Status: Acute Assessment and Plan: Blood pressures reviewed. Will resume patient's home antihypertensives (6) Bradycardia, sinus: Code(s): R00.1 - Bradycardia, unspecified Status: Acute Assessment and Plan: On amiodarone and metoprolol at home. SB on telemetry Hold on restarting anti-arrhythmic and beta july at this time. Systolic murmur on exam. Appears chronic. ECHO from 08/2021, Summary ? 1. Complete two-dimensional, color flow and Doppler transthoracic echocardiogram is performed. ? 2. Normal left ventricular size with moderate concentric hypertrophy.? Good systolic function of all segments with no segmental wall motion abnormalities. Ejection fraction visually is 55-60%.? Diastolic function is indeterminate. ? 3. Global longitudinal strain is moderately decreased at -14% consistent with systolic dysfunction. ? 4. Left atrial chamber dimension is moderately enlarged. ? 5. There is moderate aortic valve calcification.? Nnmm-ut-mfvacnod aortic stenosis with a peak velocity of 2.3 m/sec, mean gradient 12 mmHg, and aortic valve area 1.2-1.4 cm2. ? 6. Dilated inferior vena cava with >50% collapse upon inspiration consistent with elevated right atrial pressure, 15 mmHg. ? 7. There is mild aortic atherosclerosis of the aortic root. ? 8. Mild aortic insufficiency. ? 9. Atrial fibrillation. Subjective Date/time seen: 01/19/23 09:34 Interval history: HPI obtained from chart, 77-year-old male with a past medical history of essential hypertension, minimal coronary disease noted on catheterization 2019, paroxysmal atrial fibrillation, CVA, COPD, aortic stenosis and dementia who presented to the ER from [facility] with reported chest pain.? The patient himself does not know why actually came to the ER.? He does not remember complaining of chest pain.? He has severe short-term memory loss.? The patient has a history of cardiac catheterization in 2019 that demonstr
[2023-01-19] MEDS: ACETAMINOPHEN 325 MG TABLET 650 MG PO ×2 (09:42→15:13)
[2023-01-19] MEDS: ASPIRIN 81 MG CHEWABLE TABLET PO (09:43)
[2023-01-19] MEDS: SODIUM CHLORIDE 0.9% IV 1,000 ML 125 ML IV CONT (09:44)
[2023-01-19 12:03] LABS: Troponin I 0.016 ng/mL (0.000-0.034)
[2023-01-19 12:03] LABS: Glucose Point of Care 147 mg/dl (65-105)
[2023-01-19] MEDS: amLODIPine BESYLATE 5 MG TABLET 10 MG PO (12:24)
[2023-01-19] MEDS: ROFLUMILAST 500 MCG TABLET PO (12:26)
[2023-01-19] MEDS: ATORVASTATIN 20 MG TABLET PO (12:26)
[2023-01-19] MEDS: POTASSIUM CHLORIDE 20 MEQ ER TABLET PO (12:26)
[2023-01-19] MEDS: DOCUSATE SODIUM 100 MG CAPSULE PO (12:26)
[2023-01-19] MEDS: guaiFENesin 12 HR 600 MG TABCR PO ×2 (12:26→20:04)
[2023-01-19] MEDS: TAMSULOSIN HCL 0.4 MG CAPSULE PO (12:26)
[2023-01-19] MEDS: MESALAMINE 400 MG DELAYED RELEASE CAPSULE 800 MG PO ×2 (12:28→18:07)
[2023-01-19 16:48] LABS: Glucose Point of Care 120 mg/dl (65-105)
[2023-01-19] MEDS: DICLOFENAC SODIUM 1% 100 GM GEL (*BKC) 1 APPLIC TOPICAL (18:08)
[2023-01-19] MEDS: FLUTICASONE/SALMETEROL 45-21 MCG INHALER 1 PUFF 2 PUFF INHALATION (19:57)
[2023-01-19] MEDS: HYDROcodone/acetaminophen (*CRX) 5-325 MG TABLET 1 TAB PO (20:04)
[2023-01-19 20:15] LABS: Glucose Point of Care 96 mg/dl (65-105)
[2023-01-20] VITALS (15 sets, daily range): BP systolic 115–145; BP diastolic 49–64; PULSE 53–84; RESP 16–18; TEMP 36.5–36.8; O2SAT 97–98
[2023-01-20 04:34] LABS: Basophils Absolute Auto 0.1 K/mm3 (0.0-0.1); Basophils Percent Auto 0.6 % (0.2-1.2); Eosinophils Absolute Auto 0.2 K/mm3 (0-0.3); Eosinophils Percent Auto 1.9 % (0-4.4); Hematocrit 38.3 % (42.0-52.0); Hemoglobin 12.4 g/dL (14.0-18.0); Immature Granulocyte Absolute 0.04 K/mm3 (0.00-0.031); Immature Granulocyte Percent A 0.5 % (0-0.5); Lymphocytes Absolute Auto 0.78 K/mm3 (0.9-3.2); Lymphocytes Percent Auto 9.1 % (18.3-44.2); Mean Corpuscular HGB Conc 32.4 g/dl (32-36); Mean Corpuscular Hemoglobin 30.3 pg (26-34); Mean Corpuscular Volume 93.6 fl (80-100); Monocytes Absolute Auto 0.7 K/mm3 (0.1-0.6); Monocytes Percent Auto 8.2 % (2.6-8.5); Neutrophils Absolute Auto 6.9 K/mm3 (1.3-6.7); Neutrophils Percent Auto 79.7 % (45.5-73.1); Platelet Count Result 200 k/mm3 (150-375); Red Blood Count 4.09 M/mm3 (4.6-6.20); Red Cell Distribution Width 16.3 % (11.5-14.5); White Blood Count 8.6 K/mm3 (4.5-10.0)
[2023-01-20 04:54] LABS: Alanine Aminotransferase 27 U/L (6-50); Albumin Level 3.6 g/dL (3.5-5.1); Alkaline Phosphatase 85 U/L (38-126); Anion Gap 6 mmol/L (8-16); Aspartate Amino Transferase 35 U/L (17-59); Bilirubin,Total 0.5 mg/dL (0.2-1.3); Blood Urea Nitrogen 17 mg/dL (9-20); Calcium 8.5 mg/dL (8.4-10.2); Carbon Dioxide 29 mmol/L (22-30); Chloride 104 mmol/L (98-107); Estimated CRCL calculation 49 ml/min; Estimated Glomerular Filt Rate > 60; Glucose 84 mg/dL (65-110); Magnesium 2.1 mg/dL (1.6-2.3); Sodium 139 mmol/L (137-145)
[2023-01-20] MEDS: ALBUTEROL SULFATE NEB 2.5 MG/3 ML INH INHALATION ×3 (09:17→20:34)
[2023-01-20] MEDS: FLUTICASONE/SALMETEROL 45-21 MCG INHALER 1 PUFF 2 PUFF INHALATION ×2 (09:17→20:34)
[2023-01-20] MEDS: IPRATROPIUM BR 0.02% INH SOLN 0.5 MG/2.5 ML VIAL INHALATION ×3 (09:17→20:33)
--- NOTE | 2023-01-20 09:45 | PM.IMPN ---
Progress Note: A&P Assessment and Plan (1) Urinary tract infection: Qualifiers: Hematuria presence: without hematuria Urinary tract infection type: site unspecified Qualified Code(s): N39.0 - Urinary tract infection, site not specified Code(s): N39.0 - Urinary tract infection, site not specified Status: Acute Assessment and Plan: Urine culture positive for Providencia rettgeri. Will change IV antibiotics to Levaquin oral and plan to remain on 7 days total treatment. This will be renally adjusted with 500 mg today and 250 per day through 01/24. (2) Paroxysmal atrial fibrillation: Code(s): I48.0 - Paroxysmal atrial fibrillation Status: Acute Assessment and Plan: Patient not on oral anticoagulant due to history of rectal bleeding and multiple falls per previous Cardiology note. He is rate controlled at baseline by amiodarone and metoprolol. At this time he has been in sinus bradycardia rhythm so these medicines have been held since admission. (3) BPH (benign prostatic hyperplasia): Qualifiers: Lower urinary tract symptom presence: symptoms present Lower urinary tract symptom detail: urinary frequency Qualified Code(s): N40.1 - Benign prostatic hyperplasia with lower urinary tract symptoms; R35.0 - Frequency of micturition Code(s): N40.0 - Benign prostatic hyperplasia without lower urinary tract symptoms Status: Acute Assessment and Plan: Patient had significant postvoid residual had to have catheter placed. Will attempt voiding trial. (4) Hypertension: Qualifiers: Hypertension type: primary hypertension Qualified Code(s): I10 - Essential (primary) hypertension Code(s): I10 - Essential (primary) hypertension Status: Acute Assessment and Plan: Blood pressure reviewed 01/20 without need for urgent intervention (5) Bradycardia, sinus: Code(s): R00.1 - Bradycardia, unspecified Status: Acute Assessment and Plan: Heart rate remains in the 50s, metoprolol and amiodarone held. (6) Chest pain: Qualifiers: Chest pain type: unspecified Qualified Code(s): R07.9 - Chest pain, unspecified Code(s): R07.9 - Chest pain, unspecified Status: Acute Assessment and Plan: Original reason for ER visit was chest pain troponins were negative and patient was downgraded to [facility] though he still remains physically placed in IMU. Patient denies any chest pain at this time. Plan Discontinue Knight catheter attempt voiding trial and document postvoid residual in the morning. Change IV antibiotics to oral Levaquin and treat for total 7 days. Plan discharge tomorrow possibly with catheter replacement if patient is unable to adequately empty with void. Time Spent With Patient Time with patient: 25 - 35 minutes Subjective Date/time seen: 01/20/23 09:45 Interval history: Patient reports no acute events overnight. He is seen seated upright in a chair eating breakfast. Patient has indwelling Knight catheter which she states he does not chronically have. Patient has no fever chills nausea vomiting abdominal pain or flank pain. Review of Systems Review of Systems: All systems reviewed & are unremarkable except as noted in HPI and below Exam Narrative: GENERAL: Generally well appearing, alert but confused which appears to be baseline, in no apparent distress. He is pleasant and conversant in full sentences. HEENT: Pupils are equally round and briskly reactive to light. Extraocular muscles are intact. Oral mucous membranes are moist without lesions. NECK: The patient has no noted JVD. No adenopathy is appreciated. CHEST/LUNGS: Lungs are clear bilaterally without rhonchi, rales, or wheezes. There is no subcutaneous air appreciated. There is no tenderness to the chest wall. HEART: The patient has a mildly bradycardic rate and regular rhythm. No murmurs, rubs, or gallops are appreciated. Distal pulse
[2023-01-20] MEDS: MESALAMINE 400 MG DELAYED RELEASE CAPSULE 800 MG PO ×3 (11:36→16:54)
[2023-01-20] MEDS: ROFLUMILAST 500 MCG TABLET PO (11:37)
[2023-01-20] MEDS: MULTIVITAMINS /C LUTEIN (CENTRUM SILVER) TABLET *BKC 1 TAB PO (11:38)
[2023-01-20] MEDS: ASPIRIN 81 MG CHEWABLE TABLET PO (11:38)
[2023-01-20] MEDS: amLODIPine BESYLATE 5 MG TABLET 10 MG PO (11:38)
[2023-01-20] MEDS: POTASSIUM CHLORIDE 20 MEQ ER TABLET PO (11:39)
[2023-01-20] MEDS: FERROUS SULFATE 325 MG TABLET DR PO (11:39)
[2023-01-20] MEDS: ATORVASTATIN 20 MG TABLET PO (11:39)
[2023-01-20] MEDS: guaiFENesin 12 HR 600 MG TABCR PO ×2 (11:39→20:32)
[2023-01-20] MEDS: TAMSULOSIN HCL 0.4 MG CAPSULE PO (11:40)
[2023-01-20] MEDS: polyethylene glycoL 3350 17 GM POWD.PACK PO (14:54)
--- NOTE | 2023-01-20 17:05 | PC.NURSE ---
Received via bed from [facility] .
[2023-01-20] MEDS: levoFLOXacin 500 MG TABLET PO (20:31)
[2023-01-20] MEDS: HYDROcodone/acetaminophen (*CRX) 5-325 MG TABLET 1 TAB PO (20:32)
[2023-01-21] VITALS (9 sets, daily range): BP systolic 119–145; BP diastolic 47–62; PULSE 55–63; RESP 13–18; TEMP 36.1–36.6; O2SAT 97–99
[2023-01-21] MEDS: IPRATROPIUM BR 0.02% INH SOLN 0.5 MG/2.5 ML VIAL INHALATION ×2 (02:12→07:42)
[2023-01-21] MEDS: ALBUTEROL SULFATE NEB 2.5 MG/3 ML INH INHALATION ×2 (02:12→07:42)
--- NOTE | 2023-01-21 06:53 | PC.NURSE ---
bladder scan completed at 06:20, post void amount shown 466cc. Dr Gonzalez notified at 06:30. order received to straight cath x1 and continue to monitor. call the physician with amount > 300cc post void.
--- NOTE | 2023-01-21 06:55 | PC.NURSE ---
straight cath performed x1 at 06:40. 400cc out post void. void prior to straight cath was 200 cc. will continue to monitor.
[2023-01-21] MEDS: FLUTICASONE/SALMETEROL 45-21 MCG INHALER 1 PUFF 2 PUFF INHALATION (07:43)
[2023-01-21] MEDS: ERGOCALCIFEROL 50,000 UNITS CAPSULE 50000 UNITS PO (08:22)
[2023-01-21] MEDS: guaiFENesin 12 HR 600 MG TABCR PO (08:22)
[2023-01-21] MEDS: TAMSULOSIN HCL 0.4 MG CAPSULE PO (08:22)
[2023-01-21] MEDS: FERROUS SULFATE 325 MG TABLET DR PO (08:22)
[2023-01-21] MEDS: amLODIPine BESYLATE 5 MG TABLET 10 MG PO (08:22)
[2023-01-21] MEDS: MESALAMINE 400 MG DELAYED RELEASE CAPSULE 800 MG PO ×2 (08:22→12:23)
[2023-01-21] MEDS: ROFLUMILAST 500 MCG TABLET PO (08:22)
[2023-01-21] MEDS: ATORVASTATIN 20 MG TABLET PO (08:23)
[2023-01-21] MEDS: MULTIVITAMINS /C LUTEIN (CENTRUM SILVER) TABLET *BKC 1 TAB PO (08:23)
[2023-01-21] MEDS: polyethylene glycoL 3350 17 GM POWD.PACK PO (08:23)
[2023-01-21] MEDS: ASPIRIN 81 MG CHEWABLE TABLET PO (08:23)
[2023-01-21] MEDS: POTASSIUM CHLORIDE 20 MEQ ER TABLET PO (08:23)
[2023-01-21] MEDS: DICLOFENAC SODIUM 1% 100 GM GEL (*BKC) 1 APPLIC TOPICAL (09:03)
--- NOTE | 2023-01-21 11:45 | PM.DS ---
DS: Admitting Diagnosis Discharge Date 01/21/2023 Admitting Diagnosis chest pain, urinary tract infection, paroxysmal atrial fibrillation, BPH, hypertension, bradycardia DS: Discharge Diagnosis Discharge Diagnosis (1) Urinary tract infection: Qualifiers: Hematuria presence: without hematuria Urinary tract infection type: site unspecified Qualified Code(s): N39.0 - Urinary tract infection, site not specified Code(s): N39.0 - Urinary tract infection, site not specified Status: Acute (2) Urinary retention due to benign prostatic hyperplasia: Code(s): N40.1 - Benign prostatic hyperplasia with lower urinary tract symptoms; R33.8 - Other retention of urine Status: Acute (3) Chest pain: Qualifiers: Chest pain type: unspecified Qualified Code(s): R07.9 - Chest pain, unspecified Code(s): R07.9 - Chest pain, unspecified Status: Acute (4) Bradycardia, sinus: Code(s): R00.1 - Bradycardia, unspecified Status: Acute (5) Dementia: Code(s): F03.90 - Unspecified dementia, unspecified severity, without behavioral disturbance, psychotic disturbance, mood disturbance, and anxiety Status: Acute (6) Paroxysmal atrial fibrillation: Code(s): I48.0 - Paroxysmal atrial fibrillation Status: Acute (7) Tobacco dependence: Code(s): F17.200 - Nicotine dependence, unspecified, uncomplicated Status: Acute (8) Hypertension: Qualifiers: Hypertension type: primary hypertension Qualified Code(s): I10 - Essential (primary) hypertension Code(s): I10 - Essential (primary) hypertension Status: Acute (9) Chest pain: Qualifiers: Chest pain type: unspecified Qualified Code(s): R07.9 - Chest pain, unspecified Code(s): R07.9 - Chest pain, unspecified Status: Acute DS: Summary Hospital Course Reason for hospitalization: chest pain and urinary tract infection Hospital Course: patient presented to the emergency department after reporting chest pain to staff at the facility he resides in. Upon ER evaluation patient could not remember why he was sent to the ER. He denied any chest pain at that time. He was found to be mildly bradycardic. Troponins were negative. Patient was found to have a urinary tract infection. He was also found to have urinary retention and a Knight catheter was placed with much difficulty. Patient received IV antibiotics to treat urinary tract infection. A voiding trial was attempted and patient again had significant urinary retention and the need for straight catheterization. Knight catheter was reinserted and patient discharged back to the residential on oral antibiotics with instructions to attempt a void trial again in 1 week. He is already on tamsulosin. If he does not pass the void trial facility was informed that they need to make an appointment with Urology for further evaluation in the clinic. Status at Discharge Cognitive/behavioral status at discharge: Awake, alert, confused (baseline dementia) and very pleasant Functional status at discharge: uses cane/walker Overall status at discharge: patient is progressing back to baseline Time Spent with Patient Time attestation: Total time spent providing and/or coordinating discharge services:40 Time spent: Greater than 30 minutes Exam Narrative: GENERAL: Generally well appearing, alert but confused which appears to be baseline, in no apparent distress. He is pleasant and conversant in full sentences. HEENT: Pupils are equally round and briskly reactive to light. Extraocular muscles are intact. Oral mucous membranes are moist without lesions. NECK: The patient has no noted JVD. No adenopathy is appreciated. CHEST/LUNGS: Lungs are clear bilaterally without rhonchi, rales, or wheezes. There is no subcutaneous air appreciated. There is no tenderness to the chest wall. HEART: The patient has a mildly bradycardic rate and regu
[2023-01-21 12:39] LABS: SARS-CoV-2 RNA PCR Negative (Negative)
--- NOTE | 2023-01-21 14:16 | PC.NURSE ---
On 01/21/23, the student, [James Aguilar], provided care and completed [employer] documentation on this patient. I have reviewed the student's documentation and agree with the findings.
== END 2023-01-21 14:40 | DRG 690 ==
LOC: ANHED 21:37 → ANHIMU 23:10 → ANH2MED 01-20 17:05
PROVIDERS: Emergency Medicine; Nurse Practitioner Acute Care; Admitting Provider Internal Medicine; Emergency Provider Emergency Medicine; PCP Internal Medicine; Visit Provider Nurse Practitioner
DX: N39.0 Urinary tract infection, site not specified (principal); K50.90 Crohn's disease, unspecified, without complications; R07.9 Chest pain, unspecified; I11.0 Hypertensive heart disease with heart failure; I50.9 Heart failure, unspecified; I48.0 Paroxysmal atrial fibrillation; I35.0 Nonrheumatic aortic (valve) stenosis; R00.1 Bradycardia, unspecified; N40.1 Benign prostatic hyperplasia with lower urinary tract symptoms; R35.0 Frequency of micturition; G30.9 Alzheimer's disease, unspecified; F02.80 Dementia in other diseases classified elsewhere, unspecified severity, without behavioral disturbance, psychotic disturbance, mood disturbance, and anxiety; F32.A Depression, unspecified; Z20.822 Contact with and (suspected) exposure to COVID-19; I25.2 Old myocardial infarction; Z79.82 Long term (current) use of aspirin; Z95.5 Presence of coronary angioplasty implant and graft; Z86.73 Personal history of transient ischemic attack (TIA), and cerebral infarction without residual deficits
CPT/HCPCS: 36415; 70450; 71046; 80053; 81001; 82948; 83690; 83735; 84484; 85025; 85610; 85730; 87077; 87086; 87186; 87635; 93005; 94640; 96361; 96365; 99285; A9270; G0378; J0696; J7030

== ENCOUNTER 2023-02-24 14:26 | Inpatient (IN) | payer MEDICARE, MEDICAID, SELFPAY ==
[2023-02-24] VITALS (25 sets, daily range): BP systolic 128–166; BP diastolic 53–80; PULSE 43–61; RESP 16–31; TEMP 36.4–36.7; O2SAT 90–96; BMI 23.3
--- NOTE | ~2023-02-24 | XR_ITS ---
XR chest 2V DATE: 02/24/2023 15:20 INDICATION: Chest pain. Altered mental status. TECHNIQUE: AP and lateral views COMPARISON: 01/18/2023 2 view chest FINDINGS: Interval mildly increased middle lobe infiltrate and/atelectasis since 01/18/2023. There is associated loss of the right cardiac margin on the AP view. There is mild infiltrate or atelectasis in the left lower lobe. The remaining lung ureña appear clear. Normal heart size. There is aortic calcification and mild tortuosity. Degenerative spurring of the thoracic spine. Severe bilateral glenohumeral osteoarthritis. IMPRESSION: Increased middle lobe and new left lower lobe infiltrates since 01/18/2023 Reviewed, dictated and finalized at location B. IMPRESSION: Increased middle lobe and new left lower lobe infiltrates since 01/08
--- NOTE | 2023-02-24 14:27 | ECG_ITS ---
Measurements Intervals [place] Rate: 44 P: 16 OH: 197 QRS: -71 QRSD: 157 T: 16 QT: 516 QTc: 443 Interpretive Statements SINUS BRADYCARDIA LEFT AXIS DEVIATION [QRS AXIS < -30] RIGHT BUNDLE BRANCH BLOCK [120+ ms QRS DURATION, UPRIGHT V1, 40+ ms S IN I/aVL/V4/V5/V6] POSSIBLE SEPTAL MYOCARDIAL INFARCTION , OF INDETERMINATE AGE [30 ms Q WAVE IN V1/V2] BORDERLINE ECG COMPARED TO ECG 01/18/2023 17:02:45 LEFT-AXIS DEVIATION NOW PRESENT Electronically Signed On 02-24-2023 18:36:50 CDT by Dirk Antonio M.D.
[2023-02-24 15:06] LABS: Basophils Absolute Auto 0.1 K/mm3 (0.0-0.1); Basophils Percent Auto 0.7 % (0.2-1.2); Eosinophils Absolute Auto 0.1 K/mm3 (0-0.3); Eosinophils Percent Auto 2.1 % (0-4.4); Hematocrit 36.3 % (42.0-52.0); Hemoglobin 11.4 g/dL (14.0-18.0); Immature Granulocyte Absolute 0.05 K/mm3 (0.00-0.031); Immature Granulocyte Percent A 0.7 % (0-0.5); Lymphocytes Absolute Auto 0.83 K/mm3 (0.9-3.2); Lymphocytes Percent Auto 12.3 % (18.3-44.2); Mean Corpuscular HGB Conc 31.4 g/dl (32-36); Mean Corpuscular Hemoglobin 30.2 pg (26-34); Mean Platelet Volume 11.1 fl (7.4-10.4); Monocytes Absolute Auto 0.9 K/mm3 (0.1-0.6); Neutrophils Absolute Auto 4.7 K/mm3 (1.3-6.7); Neutrophils Percent Auto 70.2 % (45.5-73.1); Platelet Count Result 182 k/mm3 (150-375); Red Blood Count 3.78 M/mm3 (4.6-6.20); Red Cell Distribution Width 15.6 % (11.5-14.5); White Blood Count 6.7 K/mm3 (4.5-10.0)
[2023-02-24 15:15] LABS: Prothrombin Time 13.6 Seconds (11.1-14.7)
[2023-02-24 15:16] LABS: Partial Thromboplastin Time 33.5 SECONDS (22.3-36.8)
[2023-02-24 15:18] LABS: Alanine Aminotransferase 61 U/L (6-50); Albumin Level 4.1 g/dL (3.5-5.1); Alkaline Phosphatase 93 U/L (38-126); Anion Gap 5 mmol/L (8-16); Aspartate Amino Transferase 74 U/L (17-59); Bilirubin,Total 0.4 mg/dL (0.2-1.3); Blood Urea Nitrogen 32 mg/dL (9-20); Calcium 8.8 mg/dL (8.4-10.2); Carbon Dioxide 28 mmol/L (22-30); Chloride 101 mmol/L (98-107); Estimated CRCL calculation 38 ml/min; Estimated Glomerular Filt Rate 54; Glucose 91 mg/dL (65-110); Lipase 74 U/L (23-300); Potassium 4.6 mmol/L (3.4-5.0); Sodium 134 mmol/L (137-145)
[2023-02-24 15:29] LABS: Troponin I 0.016 ng/mL (0.000-0.034)
--- NOTE | 2023-02-24 17:03 | ED.CHESTPAIN ---
HPI - Chest Pain General Chief Complaint: Chest Pain Stated Complaint: chest pain Time Seen by Provider: 02/24/23 16:17 History of Present Illness HPI narrative: 77-year-old male with a history of sinus bradycardia, diastolic heart failure, paroxysmal atrial fibrillation, COPD, dementia reports via EMS from [facility]. Per the triage note, the patient was complaining of chest pain around 10 AM this morning that was more tender to the touch along with right arm pain. The facility administered 3 nitro and aspirin without relief. EMS also gave 3 more aspirin 1. Upon my evaluation, the patient is unsure why he is here. When I asked him if he is having chest pain or shortness of breath he says no. He does report pain to both of his upper extremities for the past year, denies injury. He is does have a productive cough on exam. He denies chest pain, shortness of breath, abdominal pain, nausea, vomiting, diarrhea, dysuria or hematuria, back pain. He does report a pruritic rash around his scrotum. Related Data Home Medications Medication Instructions Recorded Confirmed acetaminophen 325 mg capsule 650 mg PO Q6H PRN Pain (Scale 08/27/19 01/19/23 Score 1-3) atorvastatin 20 mg tablet 20 mg PO DAILY 08/27/19 01/19/23 cholecalciferol (vitamin D3) 50,000 units PO MONTHLY 08/27/19 01/19/23 docusate sodium 100 mg capsule 100 mg PO DAILY PRN Constipation 08/27/19 01/19/23 hydrocodone 5 mg-acetaminophen 325 1 tablet PO QHS 08/27/19 01/19/23 mg tablet roflumilast 500 mcg tablet 500 mcg PO DAILY 08/27/19 01/19/23 (Daliresp) sodium chloride 0.65 % nasal spray 2 spray intranasal QID PRN Nasal 08/27/19 01/19/23 aerosol (Saline Nasal) Congestion tamsulosin 0.4 mg capsule 0.4 mg PO DAILY 08/27/19 01/19/23 albuterol sulfate 90 mcg/actuation 2 puff inhalation Q6H PRN 08/13/21 01/19/23 aerosol inhaler (ProAir HFA) Shortness Of Breath Or Wheezing ibuprofen 200 mg tablet 600 mg PO TID PRN Pain (Scale 08/13/21 01/19/23 Score 4-6) multivit with minerals-iron 18 1 tablet PO DAILY 08/13/21 01/19/23 mg-folic ac 400 mcg-vit K 25 mcg tablet (Adults Multivitamin) polyethylene glycol 3350 17 gram 17 g PO DAILY 08/13/21 01/19/23 oral powder packet (Miralax) amiodarone 200 mg tablet (Pacerone) 400 mg PO DAILY 01/19/23 01/19/23 aspirin 81 mg chewable tablet 81 mg PO DAILY 01/19/23 01/19/23 (Children's Aspirin) budesonide-formoterol HFA 80 1 puff inhalation BID 01/19/23 01/19/23 mcg-4.5 mcg/actuation aerosol inhaler (Symbicort) bupropion HCl 150 mg tablet,12 hr 75 mg PO QAM 01/19/23 01/19/23 sustained-release (Wellbutrin SR) diclofenac sodium 1 % topical gel 1 ea topical BID 01/19/23 01/19/23 ferrous sulfate 325 mg (65 mg 324 mg PO DAILY 01/19/23 01/19/23 iron) tablet guaifenesin 100 mg/5 mL oral syrup 100 mg PO QID PRN Cough 01/19/23 01/19/23 guaifenesin 600 mg tablet, 600 mg PO BID 01/19/23 01/19/23 extended release 12 hr (Mucinex) lactulose 20 gram/30 mL oral 30 g PO QID PRN Constipation 01/19/23 01/19/23 solution loperamide 2 mg tablet (Imodium 2 mg PO BID PRN Diarrhea 01/19/23 01/19/23 A-D) loratadine 10 mg tablet 10 mg PO DAILY PRN running nose 01/19/23 01/19/23 metoprolol tartrate 25 mg tablet 12.5 mg PO Q12HR 01/19/23 01/19/23 multivit with minerals-iron 18 1 tablet PO DAILY 01/19/23 01/19/23 mg-folic ac 400 mcg-vit K 25 mcg tablet (Adults Multivitamin) potassium chloride 20 mEq 20 meq PO DAILY 01/19/23 01/19/23 tablet,extended release (K-Tab) Allergies Allergy/AdvReac Type Severity Reaction Status Date / Time Sulfa (Sulfonamide Allergy Unknown Unknown Verified 01/18/23 17:12 Antibiotics) Review of Systems Review of Systems: CONSTITUTIONAL: Denies fever, chills EYES: Denies visual changes, redness, or discharge. ENT: Denies rhinorrhea, congestion, sore throat, or otalgia. CARDIOVASCULAR: See HPI RESPIRATORY: See HPI GASTROINTESTINAL: Denies abdominal pain, nausea, vomiting, or diarrhea.
[2023-02-24] MEDS: CEFEPIME 2 GM/NS 50 ML 2 GM/50 ML BAG IVPB (17:55)
[2023-02-24 17:58] LABS: Prothrombin Time 13.3 Seconds (11.1-14.7)
[2023-02-24 17:59] LABS: Partial Thromboplastin Time 34.3 SECONDS (22.3-36.8)
[2023-02-24 17:59] LABS: Appearance Urine Cloudy (Clear); Bacteria Urine None Seen /hpf; Bilirubin Urine Negative (Negative); Blood Urine Negative (Negative); Color Urine Yellow (Yellow); Glucose Urine UA Negative (Negative); Ketones Urine Negative (Negative); Leukocyte Esterase Ur Negative LEU/UL (Negative); Nitrate Urine Negative (Negative); Non Pathogenic Casts 0-2; Protein Urine Negative (Negative); RBC Urine 0-2 /hpf (0-2); Specific Grav Ur 1.017 (1.001-1.035); Squamous Epithelial Cell Urine None seen /hpf (Few); Urobilinogen Urine 0.2 mg/dL (<2.0); WBC Urine 0-5 /hpf
[2023-02-24 18:04] LABS: Lactic Acid Reflex 0.6 mmol/L (0.7-2.0)
[2023-02-24 18:06] LABS: Add Urine Microscopic? YES
[2023-02-24] MEDS: levoFLOXacin 750 MG/D5W 150 ML 750 MG/150 ML BAG 100 MG IVPB (18:07)
[2023-02-24 18:15] LABS: NT Pro B Type Natriuretic Pept 1510 pg/mL (19.9-100); Troponin I 0.016 ng/mL (0.000-0.034)
[2023-02-24 18:30] LABS: Influenza A QL RT-PCR Negative (Negative); Influenza B QL RT-PCR Negative (Negative); SARS-CoV-2 RNA PCR Negative (Negative)
--- NOTE | 2023-02-24 18:46 | PC.NURSE ---
while pt was receiving levofloxacin he began having itchiness near iv site and on head, then stated he felt slightly sick to his stomach. i stopped infusion and notified provider.
[2023-02-24] MEDS: AZITHROMYCIN 500 MG/NS 250 ML 500 MG/250 ML BAG 250 MG IVPB (19:30)
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
[2023-02-24] MEDS: ZINC OXIDE 20% OINT 30 GM TUBE 1 APPLIC TOPICAL (20:04)
[2023-02-24 20:22] LABS: MRSA (PCR) NOT DETECTED (NOT DETECTE)
--- NOTE | 2023-02-24 21:27 | ADMGEN ---
This patient, Mark Whitaker, was admitted to Medical Room 257-01. Patient/family oriented to hospital policies and general routines including ID bracelet, bed and alarms, visiting hours, pain management, procedures, bathroom and other care routines, personal items, smoking policy, room service/diet, and visiting hours. Information on how to activate the Rapid Response Team has been discussed. Patient/Family are encouraged to report perceived risks to care and to ask questions if they do not understand what they are told or what they should do.
[2023-02-24 21:52] LABS: Troponin I 0.016 ng/mL (0.000-0.034)
[2023-02-24] MEDS: MELATONIN 3 MG TABLET PO (23:38)
[2023-02-25] VITALS (14 sets, daily range): BP systolic 128–152; BP diastolic 48–65; PULSE 43–64; RESP 16–18; TEMP 36.3–36.9; O2SAT 93–97
[2023-02-25] MEDS: CEFEPIME 1 GM/NS 50 ML 1 GM/50 ML BAG IVPB (05:15)
[2023-02-25 05:30] LABS: Estimated CRCL calculation 51 ml/min; Estimated Glomerular Filt Rate > 60
[2023-02-25] MEDS: FLUTICASONE/SALMETEROL 45-21 MCG INHALER 1 PUFF 2 PUFF INHALATION ×2 (09:34→21:10)
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
--- NOTE | 2023-02-25 10:41 | PM.IMPN ---
Progress Note: A&P Assessment and Plan (1) Pneumonia: Qualifiers: Laterality: right Lung location: middle lobe of lung Pneumonia type: due to unspecified organism Qualified Code(s): J18.9 - Pneumonia, unspecified organism Code(s): J18.9 - Pneumonia, unspecified organism Status: Acute Assessment and Plan: Admit to regular medical floor Patient started on cefepime, azithromycin and vancomycin. Cultures in progress Supportive care Continue to monitor (2) Aortic stenosis: Code(s): I35.0 - Nonrheumatic aortic (valve) stenosis Status: Acute Assessment and Plan: Continue to monitor Follow-up in outpatient setting On beta-july (3) Tobacco dependence: Code(s): F17.200 - Nicotine dependence, unspecified, uncomplicated Status: Acute Assessment and Plan: Encouraged cessation Nicotine patch as needed (4) Congestive heart failure: Code(s): I50.9 - Heart failure, unspecified Status: Acute Assessment and Plan: Appears euvolemic (5) Paroxysmal atrial fibrillation with rapid ventricular response: Code(s): I48.0 - Paroxysmal atrial fibrillation Status: Acute Assessment and Plan: Continue amiodarone whole as needed Patient bradycardic a time of presentation (6) COPD (chronic obstructive pulmonary disease): Code(s): J44.9 - Chronic obstructive pulmonary disease, unspecified Status: Chronic Assessment and Plan: Stable Continue home meds (7) Alzheimer disease: Code(s): G30.9 - Alzheimer's disease, unspecified; F02.80 - Dementia in other diseases classified elsewhere, unspecified severity, without behavioral disturbance, psychotic disturbance, mood disturbance, and anxiety Status: Chronic Assessment and Plan: Unchanged Subjective Date/time seen: 02/25/23 10:41 Interval history: no new complaints Exam Narrative: Laying in bed in no acute distress Const: General: comfortable, no acute distress, well developed, alert, awake and average body habitus Nutritional Appearance: average body habitus Orientation/consciousness: patient oriented x3 HENMT: Head: normal to inspection, normocephalic and atraumatic Ears: hearing grossly normal bilaterally Face/Nose/Sinus: normal facial exam Face and sinus: normal facial exam Eyes: General: appearance normal, both eyes and all related structures Pupils: Equal, round and reactive pupils present EOM: EOMs intact bilaterally Neck: Neck: full ROM, no lymphadenopathy and no JVD Thyroid: thyroid normal Lymphatic: no lymphadenopathy noted Resp: Effort & Inspection: normal respiratory effort and able to speak in complete sentences Auscultation: clear to auscultation bilaterally Cardio: Jugular venous distension: no JVD Rate: regular rate Rhythm: regular rhythm Heart sounds: S1 normal heart sound present and S2 normal heart sound present : General: Yes deferred Skin: Rashes: no rashes Wounds: no wounds Neuro: General: patient oriented x3, CN's II-XI intact bilaterally and Unable to assess gait Cranial nerves: Yes CN's II-XII intact bilaterally and Yes Equal, round and reactive pupils present Cognition (Neuro): normal cognition Speech: normal speech Gait exam (Neuro): Unable to assess gait Motor exam (neuro): 5/5 motor strength present throughout Extrem: General: normal to inspection, full ROM, no joint enlargement and no pedal edema Objective Data Vital Signs Vital Signs: Vital Signs - 24 hr 02/24/23 14:34 02/24/23 16:10 02/24/23 17:04 Temperature 98.0 F Pulse Rate 43 L 53 L Respiratory Rate 16 25 H Blood Pressure 128/53 L 165/72 H Pulse Oximetry 96 95 92 Oxygen Delivery Room Air 02/24/23 16:22 02/24/23 16:23 02/24/23 16:31 Temperature Pulse Rate 57 L 52 L 54 L Respiratory Rate 27 H 20 Blood Pressure 166/71 H 162/71 H Pulse Oximetry 95 95 96 Oxygen Delivery 02/24/23 16:32 02/24/23 16:45 1
[2023-02-25] MEDS: ASPIRIN 81 MG CHEWABLE TABLET PO (10:44)
[2023-02-25] MEDS: amLODIPine BESYLATE 5 MG TABLET 10 MG PO (10:44)
[2023-02-25] MEDS: TAMSULOSIN HCL 0.4 MG CAPSULE PO (10:44)
[2023-02-25] MEDS: MESALAMINE 400 MG DELAYED RELEASE CAPSULE 800 MG PO ×3 (10:44→17:54)
[2023-02-25] MEDS: guaiFENesin 12 HR 600 MG TABCR PO ×2 (10:44→21:23)
[2023-02-25] MEDS: polyethylene glycoL 3350 17 GM POWD.PACK PO (10:45)
[2023-02-25] MEDS: MULTIVITAMINS /C LUTEIN (CENTRUM SILVER) TABLET *BKC 1 TAB PO (10:45)
[2023-02-25] MEDS: ATORVASTATIN 20 MG TABLET PO (10:45)
[2023-02-25] MEDS: ROFLUMILAST 500 MCG TABLET PO (10:45)
[2023-02-25] MEDS: FERROUS SULFATE 325 MG TABLET DR BY MOUTH (10:45)
[2023-02-25] MEDS: DICLOFENAC SODIUM 1% 100 GM GEL (*BKC) 1 APPLIC TOPICAL ×2 (10:46→17:54)
--- NOTE | 2023-02-25 13:02 | PC.NURSE ---
On 02/25/23, the student, [Marine Espinoza], provided care and completed [facility] documentation on this patient. I have reviewed the student's documentation and agree with the findings.
--- NOTE | 2023-02-25 14:15 | PC.NURSE ---
On 02/25/23, the student, [Jada Harris], provided care and completed [facility] documentation on this patient. I have reviewed the student's documentation and agree with the findings.
[2023-02-25] MEDS: AZITHROMYCIN 250 MG TABLET 500 MG PO (17:54)
[2023-02-25] MEDS: AMOXICILLIN/CLAVULANATE K 875-125 MG TAB 1 TABLET PO (21:23)
[2023-02-25] MEDS: MELATONIN 3 MG TABLET PO (21:24)
[2023-02-26] VITALS: PULSE 73
[2023-02-26] MEDS: ACETAMINOPHEN 325 MG TABLET 650 MG PO (03:38)
[2023-02-26 04:00] VITALS: PULSE 59
[2023-02-26 05:38] VITALS: BP 159/61; PULSE 53; RESP 18; TEMP 36.3; O2SAT 96
[2023-02-26 05:55] LABS: Basophils Percent Auto 0.4 % (0.2-1.2); Eosinophils Absolute Auto 0.2 K/mm3 (0-0.3); Eosinophils Percent Auto 3.1 % (0-4.4); Hematocrit 38.4 % (42.0-52.0); Hemoglobin 12.4 g/dL (14.0-18.0); Immature Granulocyte Absolute 0.05 K/mm3 (0.00-0.031); Immature Granulocyte Percent A 0.7 % (0-0.5); Lymphocytes Absolute Auto 1.09 K/mm3 (0.9-3.2); Lymphocytes Percent Auto 14.9 % (18.3-44.2); Mean Corpuscular HGB Conc 32.3 g/dl (32-36); Mean Corpuscular Hemoglobin 30.2 pg (26-34); Mean Corpuscular Volume 93.4 fl (80-100); Mean Platelet Volume 11.1 fl (7.4-10.4); Monocytes Absolute Auto 0.7 K/mm3 (0.1-0.6); Monocytes Percent Auto 9.1 % (2.6-8.5); Neutrophils Absolute Auto 5.3 K/mm3 (1.3-6.7); Neutrophils Percent Auto 71.8 % (45.5-73.1); Platelet Count Result 175 k/mm3 (150-375); Red Blood Count 4.11 M/mm3 (4.6-6.20); Red Cell Distribution Width 15.1 % (11.5-14.5); White Blood Count 7.3 K/mm3 (4.5-10.0)
[2023-02-26 06:07] LABS: Anion Gap 7 mmol/L (8-16); Blood Urea Nitrogen 28 mg/dL (9-20); Carbon Dioxide 28 mmol/L (22-30); Chloride 101 mmol/L (98-107); Estimated CRCL calculation 43 ml/min; Estimated Glomerular Filt Rate 59; Glucose 83 mg/dL (65-110); Potassium 3.7 mmol/L (3.4-5.0); Sodium 136 mmol/L (137-145)
[2023-02-26 07:50] VITALS: PULSE 52; RESP 18; O2SAT 93
[2023-02-26] MEDS: FLUTICASONE/SALMETEROL 45-21 MCG INHALER 1 PUFF 2 PUFF INHALATION (07:50)
[2023-02-26 08:00] VITALS: PULSE 49
[2023-02-26 08:51] VITALS: PULSE 54
[2023-02-26] MEDS: AMIODARONE HCL 200 MG TABLET PO (08:51)
[2023-02-26] MEDS: amLODIPine BESYLATE 5 MG TABLET 10 MG PO (08:52)
[2023-02-26] MEDS: ASPIRIN 81 MG CHEWABLE TABLET PO (08:52)
[2023-02-26] MEDS: AMOXICILLIN/CLAVULANATE K 875-125 MG TAB 1 TABLET PO (08:53)
[2023-02-26] MEDS: FERROUS SULFATE 325 MG TABLET DR BY MOUTH (08:53)
[2023-02-26] MEDS: guaiFENesin 12 HR 600 MG TABCR PO (08:53)
[2023-02-26] MEDS: ATORVASTATIN 20 MG TABLET PO (08:53)
[2023-02-26] MEDS: MULTIVITAMINS /C LUTEIN (CENTRUM SILVER) TABLET *BKC 1 TAB PO (08:54)
[2023-02-26] MEDS: MESALAMINE 400 MG DELAYED RELEASE CAPSULE 800 MG PO ×3 (08:54→17:42)
[2023-02-26] MEDS: ROFLUMILAST 500 MCG TABLET PO (08:55)
[2023-02-26] MEDS: polyethylene glycoL 3350 17 GM POWD.PACK PO (08:55)
[2023-02-26] MEDS: TAMSULOSIN HCL 0.4 MG CAPSULE PO (08:55)
--- NOTE | 2023-02-26 12:12 | PM.DS ---
DS: Admitting Diagnosis Discharge Date February 26, 2023 Admitting Diagnosis No DS: Discharge Diagnosis Discharge Diagnosis (1) Pneumonia: Qualifiers: Laterality: right Lung location: middle lobe of lung Pneumonia type: due to unspecified organism Qualified Code(s): J18.9 - Pneumonia, unspecified organism Code(s): J18.9 - Pneumonia, unspecified organism Status: Acute Assessment and Plan: Admit to regular medical floor Patient started on cefepime, azithromycin and vancomycin. Cultures in progress Supportive care Continue to monitor (2) Aortic stenosis: Code(s): I35.0 - Nonrheumatic aortic (valve) stenosis Status: Acute Assessment and Plan: Continue to monitor Follow-up in outpatient setting On beta-july (3) Tobacco dependence: Code(s): F17.200 - Nicotine dependence, unspecified, uncomplicated Status: Acute Assessment and Plan: Encouraged cessation Nicotine patch as needed (4) Congestive heart failure: Code(s): I50.9 - Heart failure, unspecified Status: Acute Assessment and Plan: Appears euvolemic (5) Paroxysmal atrial fibrillation with rapid ventricular response: Code(s): I48.0 - Paroxysmal atrial fibrillation Status: Acute Assessment and Plan: Continue amiodarone whole as needed Patient bradycardic a time of presentation (6) COPD (chronic obstructive pulmonary disease): Code(s): J44.9 - Chronic obstructive pulmonary disease, unspecified Status: Chronic Assessment and Plan: Stable Continue home meds (7) Alzheimer disease: Code(s): G30.9 - Alzheimer's disease, unspecified; F02.80 - Dementia in other diseases classified elsewhere, unspecified severity, without behavioral disturbance, psychotic disturbance, mood disturbance, and anxiety Status: Chronic Assessment and Plan: Unchanged DS: Summary Hospital Course Hospital Course: Patient was admitted for pneumonia. He was started IV antibiotics and did well. Respiratory status is improved. Beta-july was stopped secondary to bradycardia. Appreciate Cardiology input. 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 Time Spent with Patient Time attestation: Total time spent providing and/or coordinating discharge services: Exam Narrative: Laying in bed in no acute distress Const: General: comfortable, no acute distress, well developed, alert, awake and average body habitus Nutritional Appearance: average body habitus Orientation/consciousness: patient oriented x3 HENMT: Head: normal to inspection, normocephalic and atraumatic Ears: hearing grossly normal bilaterally Face/Nose/Sinus: normal facial exam Face and sinus: normal facial exam Eyes: General: appearance normal, both eyes and all related structures Pupils: Equal, round and reactive pupils present EOM: EOMs intact bilaterally Neck: Neck: full ROM, no lymphadenopathy and no JVD Thyroid: thyroid normal Lymphatic: no lymphadenopathy noted Resp: Effort & Inspection: normal respiratory effort and able to speak in complete sentences Auscultation: clear to auscultation bilaterally Cardio: Jugular venous distension: no JVD Rate: regular rate Rhythm: regular rhythm Heart sounds: S1 normal heart sound present and S2 normal heart sound present : General: Yes deferred Skin: Rashes: no rashes Wounds: no wounds Neuro: General: patient oriented x3, CN's II-XI intact bilaterally and Unable to assess gait Cranial nerves: Yes CN's II-XII intact bilaterally and Yes Equal, round and reactive pupils present Cognition (Neuro): normal cognition Speech: normal speech Gait exam (Neuro): Unable to assess gait Motor exam (neuro): 5/5 motor strength present throughout Extrem: General: normal to inspection, full ROM, no joint enlargement and no pedal edema DS: Data Data Completed and Pending Labs on day of
[2023-02-26 13:46] LABS: SARS-CoV-2 RNA PCR Negative (Negative)
[2023-02-26] MEDS: AZITHROMYCIN 250 MG TABLET 500 MG PO (17:43)
== END 2023-02-26 17:45 | DRG 194 ==
LOC: ANHED 18:59 → ANH2MED 20:00
PROVIDERS: Emergency Medicine; Admitting Provider Internal Medicine; Emergency Provider Physician Assistant; PCP Internal Medicine; Visit Provider Chiropractor
DX: J18.9 Pneumonia, unspecified organism (principal); I50.32 Chronic diastolic (congestive) heart failure; J44.0 Chronic obstructive pulmonary disease with (acute) lower respiratory infection; K50.90 Crohn's disease, unspecified, without complications; Z20.822 Contact with and (suspected) exposure to COVID-19; I35.0 Nonrheumatic aortic (valve) stenosis; F17.210 Nicotine dependence, cigarettes, uncomplicated; I48.0 Paroxysmal atrial fibrillation; N40.0 Benign prostatic hyperplasia without lower urinary tract symptoms; I11.0 Hypertensive heart disease with heart failure; G30.9 Alzheimer's disease, unspecified; F02.80 Dementia in other diseases classified elsewhere, unspecified severity, without behavioral disturbance, psychotic disturbance, mood disturbance, and anxiety; R00.1 Bradycardia, unspecified; Z86.73 Personal history of transient ischemic attack (TIA), and cerebral infarction without residual deficits; I25.2 Old myocardial infarction
CPT/HCPCS: 36415; 71046; 80048; 80053; 81001; 82565; 83605; 83690; 83880; 84484; 85025; 85610; 85730; 87040; 87635; 87636; 87641; 93005; 94640; 96365; 96367; 96375; 99285; A9270; G0378; J0456; J0692; J1956; J3370

== ENCOUNTER 2023-05-15 09:05 | Emergency (ER) | payer MEDICARE, MEDICAID, SELFPAY ==
[2023-05-15] VITALS (12 sets, daily range): BP systolic 92–110; BP diastolic 44–48; PULSE 64–77; RESP 19–32; TEMP 37.3–37.6; O2SAT 91–96
--- NOTE | ~2023-05-15 | CT_ITS ---
EXAMINATION: CT cervical spine wo con DATE: 05/15/2023 10:25 INDICATION: Fall. Head injury. TECHNIQUE: Computed tomography (CT) of the cervical spine was performed without intravenous contrast. Automated exposure control and iterative reconstruction technique were employed. Exam dose: 362.93 mGy-cm total exam DLP. COMPARISON: None FINDINGS: There is straightening of the cervical spine which may be due to positioning or muscle spas m. C1 and C2 are normally aligned and the odontoid process is intact. There is approximately 2 mm anterolisthesis at C3-4 and C4-5. There is moderate degenerative disc disease spurring at C2-3, C3-4 and C4-5. There is severe degenera tive disc disease at C5-6 and C6-7. Very prominent anterior spurring is noted at C4-C7 and T1-T2. There is degenerative change at the apophyseal and uncovertebral joints throughout the cervical spine No fracture or dislocation or locked facet or prevertebral soft tissue swelling is detected. IMPRESSION: Straightening of cervical spine; no fracture or dislocation or locked facet Prominent cervical spondylosis Reviewed, dictated and finalized at [facility] Reviewed, dictated and finalized at [facility]. 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
--- NOTE | ~2023-05-15 | CT_ITS ---
EXAMINATION: CT brain wo con DATE: 05/15/2023 10:24 INDICATION: Head injury from fall TECHNIQUE: Computed tomography (CT) of the head was performed without intravenous contrast. The mA wa s adjusted according to patient size. Iterative reconstruction technique was employed. Exam dose: 10 59.33 mGy-cm total exam DLP. COMPARISON: None FINDINGS: Despite 2 sets of images performed for motion, the examination is quite limited due to justine on artifact. There is moderately prominent central and cortical cerebral atrophy. Bilateral carotid siphon internal carotid artery calcifications. There is nonspecific diminished atte nuation of the cerebral white matter, likely due to chronic small vessel ischemic changes. No intracranial mass lesion or hemorrhage, midline shift or mass effect or subdural or epidural hemat bernice is detected. No skull fracture is detected. IMPRESSION: Limited examination due to motion artifact No skull fracture or apparent acute intracranial abnormality is evident Reviewed, dictated and finalized at [facility] Reviewed, dictated and finalized at [facility]. 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
--- NOTE | ~2023-05-15 | XR_ITS ---
XR chest 2V DATE: 05/15/2023 10:31 INDICATION: Cough TECHNIQUE: AP and lateral views COMPARISON: 02/24/2023 AP and lateral chest FINDINGS: There is abnormal prominent right perihilar density, new since 02/24/2023, likely due to in filtrate. There is probable infiltrate or atelectasis in the right lower lung zone as well.. Clinical correlation and short-term follow-up chest regress are recommended. Should the abnormality not resol ve on short-term follow-up, consider CT chest with IV contrast material. The remaining lung ureña appear clear. No pleural effusion or pulmonary vascular congestion or pneum othorax. Heart size appears normal. Aortic calcification. Mild dextroscoliosis of the thoracic spine. Degenerative spurring of the thoracic spine. Severe bilat eral glenohumeral osteoarthritis. IMPRESSION: Abnormal right perihilar density, new since 02/24/2023, likely due to infiltrate/pneumoni a. Mild infiltrate or atelectasis is suggested in the right lower lung as well. Recommend clinical correlation and short-term follow-up chest radiographs Reviewed, dictated and finalized at [facility]. 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 Mild infiltrate or atelectasis is suggested in the rig ht lower lung as well. Recommend clinical correlation and short-term follow-up chest radiographs
--- NOTE | 2023-05-15 09:46 | ECG_ITS ---
Measurements Intervals [place] Rate: 62 P: 16 ME: 180 QRS: -71 QRSD: 191 T: -9 QT: 527 QTc: 537 Interpretive Statements SINUS RHYTHM RIGHT BUNDLE BRANCH BLOCK LEFT ANTERIOR FASCICULAR BLOCK BASELINE ARTIFACT- V1-V6 ABNORMAL ECG COMPARED TO ECG 02/24/2023 14:42:59 SINUS RHYTHM NOW PRESENT Electronically Signed On 05-15-2023 13:44:53 [employer] REST[employer] by Jhonny Beck D.O.
[2023-05-15] MEDS: methylPREDNISolone SOD SUCC 125 MG VIAL IV PUSH (09:58)
--- NOTE | 2023-05-15 10:01 | ED.FALL ---
HPI - Fall General Chief Complaint: Fall <ALBAN Gutierrez Last Filed: 05/16/23 09:44> Stated Complaint: fall out of bed, headache, no LOC <ALBAN Gutierrez Last Filed: 05/16/23 09:44> Time Seen by Provider: 05/15/23 09:36 <ALBAN Gutierrez Last Filed: 05/16/23 09:44> Source: patient and EMS <ALBAN Gutierrez Last Filed: 05/16/23 09:44> Mode of arrival: EMS <ALBAN Gutierrez Last Filed: 05/16/23 09:44> Limitations: dementia <ALBAN Gutierrez Last Filed: 05/16/23 09:44> History of Present Illness HPI Narrative: This is a 77 year old male that presents to the ER after a fall today with head injury. Reports he was trying to tidy things up and lost his balance and fell forward. Reports hitting his head on the side table. He does not believe he lost consciousness. No other focal injuries or areas of pain. He reports he has been coughing and felt short of breath. Denies chest pain or lower extremity edema. <ALBAN Gutierrez Last Filed: 05/16/23 09:44> Related Data Home Medications: Home Medications Medication Instructions Recorded Confirmed acetaminophen 325 mg capsule 650 mg PO Q6H PRN Pain (Scale 08/27/19 02/24/23 Score 1-3) atorvastatin 20 mg tablet 20 mg PO DAILY 08/27/19 02/24/23 cholecalciferol (vitamin D3) 50,000 units PO MONTHLY 08/27/19 02/24/23 docusate sodium 100 mg capsule 100 mg PO BID PRN Constipation 08/27/19 02/24/23 roflumilast 500 mcg tablet 500 mcg PO DAILY 08/27/19 02/24/23 (Daliresp) sodium chloride 0.65 % nasal spray 2 spray intranasal QID PRN Nasal 08/27/19 02/24/23 aerosol (Saline Nasal) Congestion tamsulosin 0.4 mg capsule 0.4 mg PO DAILY 08/27/19 02/24/23 albuterol sulfate 90 mcg/actuation 2 puff inhalation Q6H PRN 08/13/21 02/24/23 aerosol inhaler (ProAir HFA) Shortness Of Breath Or Wheezing ibuprofen 200 mg tablet 600 mg PO TID PRN Pain (Scale 08/13/21 02/24/23 Score 4-6) multivit with minerals-iron 18 1 tablet PO DAILY 08/13/21 02/24/23 mg-folic ac 400 mcg-vit K 25 mcg tablet (Adults Multivitamin) polyethylene glycol 3350 17 gram 17 g PO DAILY 08/13/21 02/24/23 oral powder packet (Miralax) amiodarone 200 mg tablet (Pacerone) 400 mg PO DAILY 01/19/23 02/24/23 aspirin 81 mg chewable tablet 81 mg PO DAILY 01/19/23 02/24/23 (Children's Aspirin) diclofenac sodium 1 % topical gel 1 ea topical BID 01/19/23 02/24/23 ferrous sulfate 325 mg (65 mg 325 mg PO DAILY 01/19/23 02/24/23 iron) tablet guaifenesin 100 mg/5 mL oral syrup 100 mg PO QID PRN Cough 01/19/23 02/24/23 guaifenesin 600 mg tablet, 600 mg PO BID 01/19/23 02/24/23 extended release 12 hr (Mucinex) lactulose 20 gram/30 mL oral 30 g PO QID PRN Constipation 01/19/23 02/24/23 solution loperamide 2 mg tablet (Imodium 2 mg PO BID PRN Diarrhea 01/19/23 02/24/23 A-D) loratadine 10 mg tablet 10 mg PO DAILY PRN running nose 01/19/23 02/24/23 potassium chloride 20 mEq 20 meq PO DAILY 01/19/23 02/24/23 tablet,extended release (K-Tab) budesonide-formoterol HFA 80 1 puff inhalation BID 02/24/23 02/24/23 mcg-4.5 mcg/actuation aerosol inhaler (Symbicort) <Leslie Kidd PA-C - Last Filed: 05/16/23 09:44> Allergies/Adverse Reactions: Allergies Allergy/AdvReac Type Severity Reaction Status Date / Time Sulfa (Sulfonamide Allergy Unknown Unknown Verified 05/15/23 09:15 Antibiotics) <Leslie Kidd PA-C - Last Filed: 05/16/23 09:44> Review of Systems Review of Systems: CONSTITUTIONAL: Denies fever ENT: Reports congestion CARDIOVASCULAR: Denies chest pain, or edema. RESPIRATORY: Reports cough and dyspnea. GASTROINTESTINAL: Denies vomiting MUSCULOSKELETAL: Denies back pain, joint pain, or myalgia. <Leslie Kidd PA-C - Last Filed: 05/16/23 09:44> All systems reviewed & are unremarkable except as noted in HPI and below <Leslie Kidd PA-C - Last Filed: 05/16/23 09:44> [facility] Past Medical History
[2023-05-15 10:10] LABS: Basophils Percent Auto 0.5 % (0.2-1.2); Eosinophils Percent Auto 0.2 % (0-4.4); Hematocrit 32.2 % (42.0-52.0); Hemoglobin 10.1 g/dL (14.0-18.0); Immature Granulocyte Absolute 0.03 K/mm3 (0.00-0.031); Immature Granulocyte Percent A 0.5 % (0-0.5); Lymphocytes Absolute Auto 0.13 K/mm3 (0.9-3.2); Mean Corpuscular HGB Conc 31.4 g/dl (32-36); Mean Corpuscular Hemoglobin 28.9 pg (26-34); Mean Corpuscular Volume 92.3 fl (80-100); Mean Platelet Volume 11.8 fl (7.4-10.4); Monocytes Absolute Auto 0.4 K/mm3 (0.1-0.6); Monocytes Percent Auto 5.8 % (2.6-8.5); Platelet Count Result 180 k/mm3 (150-375); Red Blood Count 3.49 M/mm3 (4.6-6.20); Red Cell Distribution Width 16.1 % (11.5-14.5); White Blood Count 6.6 K/mm3 (4.5-10.0)
[2023-05-15 10:14] LABS: Alanine Aminotransferase 36 U/L (6-50); Albumin Level 3.7 g/dL (3.5-5.1); Alkaline Phosphatase 83 U/L (38-126); Anion Gap 11 mmol/L (8-16); Aspartate Amino Transferase 43 U/L (17-59); Bilirubin,Total 0.4 mg/dL (0.2-1.3); Blood Urea Nitrogen 25 mg/dL (9-20); Calcium 8.5 mg/dL (8.4-10.2); Carbon Dioxide 24 mmol/L (22-30); Chloride 98 mmol/L (98-107); Estimated CRCL calculation 48 ml/min; Estimated Glomerular Filt Rate > 60; Glucose 115 mg/dL (65-110); Potassium 3.7 mmol/L (3.4-5.0); Sodium 133 mmol/L (137-145)
--- NOTE | 2023-05-15 10:19 | PCRCNOTE ---
ARRIVED TO DRAW ABG AND DO A NEBULIZER TX; PT. WAS NOT IN THE ROOM.
[2023-05-15 10:32] LABS: NT Pro B Type Natriuretic Pept 4120 pg/mL (19.9-100)
[2023-05-15] MEDS: ALBUTEROL SULFATE NEB 2.5 MG/3 ML INH INHALATION (10:32)
[2023-05-15] MEDS: IPRATROPIUM BR 0.02% INH SOLN 0.5 MG/2.5 ML VIAL INHALATION (10:32)
[2023-05-15 10:47] LABS: Influenza A QL RT-PCR Positive (Negative); Influenza B QL RT-PCR Negative (Negative); RSV RNA, RT-PCR Negative (Negative); SARS-CoV-2 RNA PCR Negative (Negative)
[2023-05-15 10:50] LABS: Alveolar/Arterial O2 Gradient 71.5 mmHg; Base Excess ABG 1.5 mEq/l (+/-2.0); Carboxyhemoglobin 0.2 % THb (0-2.0); Fractional Inspired Oxygen 28 %; HCO3 ABG 25.8 mEq/l (22.0-26.0); Methemoglobin ABG 0.1 %THb (0-1.5); Oxygen Content ABG 14.8 %vol (16.0-22.0); Oxygen Saturation ABG 96.3 % (95.0-100.0); Oxyhemoglobin 94.8 % THb (90.0-100.0); PCO2 ABG 39.5 mmHg (35.0-45.0); PO2 ABG 81.5 mmHg (80.0-100.0); PO2 FiO2 Ratio Arterial Blood 2.91 %; Reduced Hemoglobin 4.9 %THb (0-5.0); pH ABG 7.433 (7.350-7.450)
[2023-05-15 10:51] LABS: Device NASAL CANNULA; Modified Allen's Test Pass; Site Drawn LEFT RADIAL
[2023-05-15] MEDS: ACETAMINOPHEN 500 MG TABLET 1000 MG PO (11:09)
[2023-05-15] MEDS: OSELTAMIVIR PHOSPHATE 75 MG CAPSULE PO (11:09)
--- NOTE | 2023-05-15 12:17 | PC.NURSE ---
called dietary @9245 to request a heart healthy meal tray for pt
[2023-05-15 12:29] LABS: Glucose Point of Care 114 mg/dl (65-105)
[2023-05-15 12:43] LABS: Magnesium 1.8 mg/dL (1.6-2.3)
--- NOTE | 2023-05-15 13:06 | PC.NURSE ---
SHIVAM Matamoros was in pt room @1217 talking to pt about what they would like to eat for lunch. pt began complaining of gums being sore and requested their dentures. RN looked for pt dentures in room but could not find them, pt stated what they would like to eat for a meal and was not presenting any respiratory distress and was speaking full sentences. walked just outside the room to call dietary @1218, a few moments later another RN was walking by and they noticed the pt slumped over and drooling, SHIVAM De La Cruz called out for help, no pulse was palpable and compressions began @1218. Dr. Valentin and TK Nelson present by 1218. IV access already established and 1st epi given @1220, pulse was PEA. pulse check @1222 was PEA. 2nd dose epi @1223. @1224 pulse check was PEA. @1226 pulse PEA, blood sugar 114, and epi #3. pulse check @1228 was asystole, @1229 epi #4. pulse check @1230 was asystole. @1232 pulse check asystole and epi #5 administered. @1234 pulse was asystole, intubation by Dr. Valentin ET tube 7.5 sitting 24 at the lip. @1236 epi #6 and amiodarone 150mg. @1237 pulse asystole. @1239 pulse PEA and epi #7, @1241 asystole. @1242 epi #8 administered. @1243 pulse check PEA and bicarb 50mEq administered. @1245 pulse check PEA and MD called time of .
== END 2023-05-15 14:15 | disposition expired ==
PROVIDERS: Emergency Provider Physician Assistant; PCP Internal Medicine
DX: J10.00 Influenza due to other identified influenza virus with unspecified type of pneumonia (principal); J96.01 Acute respiratory failure with hypoxia; D64.9 Anemia, unspecified; S09.90XA Unspecified injury of head, initial encounter; Z20.822 Contact with and (suspected) exposure to COVID-19; R06.02 Shortness of breath; G30.9 Alzheimer's disease, unspecified; F02.80 Dementia in other diseases classified elsewhere, unspecified severity, without behavioral disturbance, psychotic disturbance, mood disturbance, and anxiety; J44.9 Chronic obstructive pulmonary disease, unspecified; I25.2 Old myocardial infarction; I35.0 Nonrheumatic aortic (valve) stenosis; I48.0 Paroxysmal atrial fibrillation; N40.0 Benign prostatic hyperplasia without lower urinary tract symptoms; K58.9 Irritable bowel syndrome, unspecified; F17.210 Nicotine dependence, cigarettes, uncomplicated; Z86.73 Personal history of transient ischemic attack (TIA), and cerebral infarction without residual deficits; Z79.82 Long term (current) use of aspirin; I45.2 Bifascicular block; W01.190A Fall on same level from slipping, tripping and stumbling with subsequent striking against furniture, initial encounter
CPT/HCPCS: 31500; 36415; 36600; 70450; 71046; 72125; 80053; 82375; 82805; 82948; 83050; 83735; 83880; 85025; 87040; 87637; 92950; 93005; 94640; 96365; 96375; 99291; A9270; J0171; J0282; J0696; J2930